=== PATIENT | male | born 1955 | race Caucasian/White ===

== ENCOUNTER 2019-02-24 04:47 | Inpatient (IN) | payer BC ==
--- NOTE | 2019-02-24 05:17 | PDOC ---
History of Present Illness - General Chief Complaint: Cold Symptoms Stated Complaint: CONGESTION,COUGH Time Seen by Provider: 02/24/19 05:13 - History of Present Illness Initial Comments: 02/24/19 05:59 63 y/o M hx of HTN, HLD, BPH, T2DM presenting with 3 weeks of cough and wheezing. He was seen at an urgent care a week ago for these symptoms and was given a 5 day course of antibiotics and an inhaler. He experienced some relief, but symptoms returned. He has had non-productive cough, chest tightness, post- nasal drip, body aches, chills. He denies chest pain, shortness of breath, vomiting. hemoptysis, hx of copd other lung disease, smoking, vaping. He got his flu shot this season 02/24/19 06:05 Past History - Past Medical History Allergies/Adverse Reactions: Allergies Allergy/AdvReac Type Severity Reaction Status Date / Time No Known Allergies Allergy Verified 02/24/19 05:00 Home Medications: Ambulatory Orders Atenolol [Tenormin -] 50 mg PO DAILY 02/24/19 Fenofibrate,Micronized [Fenofibrate] 200 mg PO DAILY 02/24/19 Glipizide [Glipizide ER] 5 mg PO DAILY 02/24/19 Ibuprofen 600 mg PO TID 02/24/19 Omeprazole 40 mg PO DAILY 02/24/19 Amlodipine Besylate [Norvasc -] 10 mg PO DAILY #30 tablet 02/26/19 Furosemide [Lasix] 40 mg PO DAILY #5 tablet 02/26/19 Valsartan [Diovan] 320 mg PO DAILY #60 tablet 02/26/19 COPD: No Diabetes: Yes HTN: Yes Hypercholesterolemia: Yes - Surgical History Cholecystectomy: Yes - Psycho Social/Smoking Cessation Hx Smoking History: Never smoked Review of Systems - Review of Systems Constitutional: Yes: Chills. No: Fever HEENTM: No: Eye Pain, Blurred Vision Respiratory: Yes: Cough, Wheezing. No: Hemoptysis ABD/GI: No: Abdominal Distended, Vomiting : No: Burning, Dysuria Musculoskeletal: Yes: Joint Pain. No: Back Pain Integumentary: Yes: Flushing. No: Bruising, Pruritus Neurological: Yes: Headache Hematologic/Lymphatic: No: Anemia, Blood Clots *Physical Exam - Vital Signs Last Vital Signs Temp Pulse Resp BP Pulse Ox 97.5 F L 98 H 20 172/68 H 100 02/24/19 04:49 02/24/19 04:49 02/24/19 04:49 02/24/19 04:49 02/24/19 04:49 - Physical Exam Comments: 02/24/19 06:13 PE: GENERAL: Awake, alert, and fully oriented, in no acute distress HEAD: No signs of trauma, normocephalic, atraumatic EYES: PERRLA, EOMI, sclera anicteric, conjunctiva clear ENT: Auricles normal inspection, hearing grossly normal, nares patent, oropharynx with greenish-white post-nasal drip. Moist mucosa NECK: Normal ROM, supple, JVD, or masses LUNGS: No distress, speaks full sentences, decreased breath sounds on the right. no wheezes rales or rhonchi heard HEART: Regular rate and rhythm, normal S1 and S2, no murmurs, rubs or gallops, peripheral pulses normal and equal bilaterally. ABDOMEN: Soft, nontender, normoactive bowel sounds. No guarding, no rebound. No masses EXTREMITIES : Normal inspection, Normal range of motion, no edema. No clubbing or cyanosis NEUROLOGICAL: Cranial nerves II through XII grossly intact. Normal speech, normal gait, no focal sensorimotor deficits SKIN: Warm, Dry, normal turgor, no rashes or lesions noted. face flushed and red ED Treatment Course - LABORATORY CBC & Chemistry Diagram: 02/25/19 09:10 02/26/19 09:40 Medical Decision Making - Medical Decision Making 02/24/19 06:19 63 y/o M hx of HTN, HLD, BPH, T2DM presenting with 3 weeks of cough and wheezing. cbc, cmp, ekg, cxr, strep and rapid flu swab EKG: normal sinus rhythm, normal EKG 02/24/19 06:30 -Rapid Strep negative. Pt signed out to Dr. Finney 02/27/19 18:17 Discharge - Discharge Information Problems reviewed: Yes Clinical Impression/Diagnosis: Pleural effusion, Shortness of breath on exertion, Chest tightness Condition: Improved Disposition: HOME - Follow up/Referral - Patient Discharge Instructions - Post Discharge Activity
--- NOTE | 2019-02-24 05:37 | PDOC ---
Attending Attestation - Resident Resident Name: Estela Macias - ED Attending Attestation I have performed the following: I have examined & evaluated the patient, The case was reviewed & discussed with the resident, I agree w/resident's findings & plan - HPI HPI: 02/24/19 05:37 Pt comes with hx of HTN, HLD, BPH, T2DM presenting with 3 weeks of cough and wheezing. He was seen at an urgent care a week ago for these symptoms and was given a 5 day course of antibiotics and an inhaler. He experienced some relief, but symptoms returned. He has had non-productive cough, chest tightness, post- nasal drip, body aches, chills. He denies chest pain, shortness of breath, vomiting. hemoptysis, hx of copd other lung disease, smoking, vaping. He got his flu shot this season - Physicial Exam PE: 02/26/19 00:27 Agree with resident exam HEENT normal Pt's lungs are clear; patchy wheeze Afebile Abd soft NT ND No flank pain - Medical Decision Making 02/24/19 06:19 63 y/o M presents with 3 weeks of cough and wheezing. cbc, cmp, ekg, cxr, strep and rapid flu swab done EKG: normal sinus rhythm, normal EKG NEGATIVE STREP 02/26/19 00:29 Flu negative; pt admitted for right base of lung infiltrate
[2019-02-24] MEDS ORDERED: ACETAMINOPHEN 650 MG/20.3 ML ORAL SOLUTION (CUPS) PO ONE (05:47)
[2019-02-24] MEDS ORDERED: ACETAMINOPHEN 325 MG TABLET (FP) PO ONE (06:04)
[2019-02-24] MEDS ORDERED: ACETAMINOPHEN 325 MG TABLET (FP) ONE ×2 (06:18→06:21)
[2019-02-24 06:19] LABS: BASO % 0.5 % (0-2.0); EOS % 1.6 % (0-4.5); HEMATOCRIT 38.6 % (35.4-49); HEMOGLOBIN 12.9 GM/dL (11.7-16.9); LYMPH % 14.7 % (8-40); MCH 27.9 pg (25.7-33.7); MCHC 33.5 g/dl (32.0-35.9); MEAN CELL VOLUME 83.2 fl (80-96); MEAN PLT VOLUME 7.8 fl (7.5-11.1); NEUT % 78.2 % (42.8-82.8); PLATELET COUNT 356 K/MM3 (134-434); RBC 4.64 M/mm3 (4.00-5.60); RDW 15.6 % (11.9-15.9); WHITE BLOOD COUNT 12.6 K/mm3 (4.0-10.0)
[2019-02-24 06:44] LABS: ALBUMIN 3.7 g/dl (3.4-5.0); ALK PHOS 94 U/L (45-117); ANION GAP 11 MMOL/L (8-16); BILIRUBIN,TOTAL 0.3 mg/dL (0.2-1); BLOOD UREA NITROGEN 21.8 mg/dL (7-18); CALCIUM 9.2 mg/dL (8.5-10.1); CHLORIDE 94 mmol/L (98-107); CO2 24 mmol/L (21-32); CREATININE 1.3 mg/dL (0.55-1.3); GLUCOSE,RANDOM 326 mg/dL (74-106); SGOT/AST 19 U/L (15-37); SGPT/ALT 26 U/L (13-61); SODIUM 128 mmol/L (136-145); TOT PROT 7.7 g/dl (6.4-8.2)
[2019-02-24] MEDS ORDERED: SODIUM CHLORIDE 1,000 ML IV STA (06:58)
--- NOTE | 2019-02-24 07:38 | PDOC ---
*Physical Exam - Vital Signs Last Vital Signs Temp Pulse Resp BP Pulse Ox 97.5 F L 98 H 20 172/68 H 100 02/24/19 04:49 02/24/19 04:49 02/24/19 04:49 02/24/19 04:49 02/24/19 04:49 ED Treatment Course - LABORATORY CBC & Chemistry Diagram: 02/24/19 06:08 02/24/19 06:08 - ADDITIONAL ORDERS Additional order review: Laboratory Results 02/24/19 06:08 Sodium 128 L Potassium 4.0 Chloride 94 L Carbon Dioxide 24 Anion Gap 11 BUN 21.8 H Creatinine 1.3 Est GFR (CKD-EPI)AfAm 68.25 Est GFR (CKD-EPI)NonAf 58.89 Random Glucose 326 H Calcium 9.2 Total Bilirubin 0.3 AST 19 ALT 26 Alkaline Phosphatase 94 Total Protein 7.7 Albumin 3.7 02/24/19 06:08 RBC 4.64 MCV 83.2 MCHC 33.5 RDW 15.6 MPV 7.8 Neutrophils % 78.2 Lymphocytes % 14.7 Monocytes % 5.0 Eosinophils % 1.6 Basophils % 0.5 - Medications Given in the ED: ED Medications Discontinued Medications Generic Name Dose Route Start Last Admin Trade Name Freq PRN Reason Stop Dose Admin Acetaminophen 650 mg 02/24/19 05:47 02/24/19 06:16 Tylenol Oral Solution - PO 02/24/19 05:48 Not Given ONCE ONE Acetaminophen 650 mg 02/24/19 06:04 02/24/19 06:22 Tylenol - PO 02/24/19 06:05 650 mg ONCE ONE Administration Medical Decision Making - Medical Decision Making 02/24/19 07:33 Received sign out from Dr Graves. Pt seen and assessed at bedside. 63yo M hx HTN, DM, HLD, recurrent sinusitis (followed by ENT) presents from home with SOB, nonproductive cough, and chest tightness worse with exertion and lying down x3wks, no hx similar sx, denies hx CHF or COPD. Endorses myalgias. Denies fever, chills, nausea, vomiting, abdominal pain, diarrhea, constipation. Endorses weekly shot testosterone x1mo and outpatient prostate surgery with general anesthesia 1 month ago. Pt went to dry cans back tender recently with these sx and is scheduled for a stress test in 2 weeks. Pt went to PCP 1.5 wks ago and completed course of unknown antibiotics and started inhaler thinking this was a bacterial sinus infection. Denies recent trauma, smoking, hx DVT/PE, hemoptysis , leg swelling, calf tenderness. Symptoms have not improved since arrival in ED , but are better when resting sitting up here, resumes when talks, moves, or lays down. Physical exam findings of note: Tachycardic to 90s/100s, O2 sat on RA 95% drops to 92% when talks, normotensive , afebrile. Lungs: decreased on R side, no wheezes, rhonchi, rales. LEs: no calf tenderness, no edema PCP - Otoniel [facility] Cardio - Dr Davis Pending 1L NS for hyponatremia and CXR. Add trop, BNP, and CTPE due to concern for ACS/AR, CHF, and PE. Start NC O2 1-2L. 02/24/19 08:24 XR reviewed: R pleural effusion with some R base atelectasis or infiltrate EKG reviewed: NSR, 92bpm, normal intervals, normal axis, TWI in III, no ST elevations or depressions Labs reviewed: Of note, WBC 12.6, Na 128, gluc 326, flu negative, strep negative Will admit for SOB and chest tightness on exertion and when lying flat in setting of R pleural effusion. 02/24/19 08:50 Trop neg BNP 307.9 Signed out to admitting team resident. Discharge - Discharge Information Problems reviewed: Yes Clinical Impression/Diagnosis: Pleural effusion, Shortness of breath on exertion, Chest tightness Condition: Fair - Admission Yes - Follow up/Referral Referrals: ON STAFF,NOT [Primary Care Provider] - - Patient Discharge Instructions - Post Discharge Activity
[2019-02-24] MEDS ORDERED: LORATADINE 10 MG TABLET PO ONE (08:30)
[2019-02-24] MEDS ORDERED: LORATADINE 10 MG TABLET ONE (08:34)
[2019-02-24 08:38] LABS: ANISOCYTOSIS 1+; PLATELET ESTIMATE NORMAL
[2019-02-24 08:41] LABS: N-TERMINAL BNP 307.9 pg/ml (5-125)
[2019-02-24] MEDS ORDERED: PATIENT'S OWN MEDICATION (NON-FORMULARY) (Amlodipine/Valsartan/Hcthiazid [Amlod-Valsa-Hctz PO SCH (11:00)
--- NOTE | 2019-02-24 11:04 | HP ---
CHIEF COMPLAINT: flu-like symptoms, cough PCP: Dr. Harrison Cardio: Dr. Davis ([facility]) HISTORY OF PRESENT ILLNESS: 63M w/ pmhx of HTN/HLD, BPH, T2DM, arthritis presents in the ED for complaints of flu-like symptoms. States he had a productive cough that started about 3 weeks ago, has been persistent despite being given PO abx, cough medicine, and nebulizer treatment to take at home. States he had a flu shot about 3 weeks ago , denies fever/chills, n/v, chest pain, abd pain, urinary/bowel symptoms or sick contacts. 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 Davis in the [place] [facility]) 2 days ago and is scheduled for stress test in 2 weeks. Admits to having a remote hx of "lung spots" in the past where he had a PET scan done 10 years ago, however results were reportedly benign. ER course was notable for: (1) 172/68 --> 148/74, 97% RA, WBC 12.6, Na 128, Glu 326, BNP 307.9. Rapid strep and flu neg. Throat culture pending. (2) PO Tylenol, Claritin 10 mg given (3) CXR showed R pleural effusion w/ R base atelectasis vs. infiltrate. 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 Allergies No Known Allergies Allergy (Verified 02/24/19 05:00) HOME MEDICATIONS: Home Medications Medication Instructions Recorded Amlodipine/Valsartan/Hcthiazid 1 tab PO DAILY 02/24/19 [Trgxm-Ehbsa-Rgkw 10-320-25 mg] Atenolol [Tenormin -] 50 mg PO DAILY 02/24/19 Fenofibrate,Micronized 200 mg PO DAILY 02/24/19 [Fenofibrate] Glipizide [Glipizide ER] 5 mg PO DAILY 02/24/19 Ibuprofen 600 mg PO TID 02/24/19 Omeprazole 40 mg PO DAILY 02/24/19 REVIEW OF SYSTEMS CONSTITUTIONAL: Absent: fever, chills, diaphoresis, generalized weakness, malaise, loss of appetite, weight change HEENT: Absent: rhinorrhea, nasal congestion, throat pain, throat swelling, difficulty swallowing, mouth swelling, ear pain, eye pain, visual changes CARDIOVASCULAR: Absent: chest pain, syncope, palpitations, irregular heart rate, lightheadedness , peripheral edema RESPIRATORY: cough, shortness of breath, dyspnea with exertion, orthopnea Absent: wheezing, stridor, hemoptysis GASTROINTESTINAL: Absent: abdominal pain, abdominal distension, nausea, vomiting, diarrhea, constipation, melena, hematochezia GENITOURINARY: Absent: dysuria, frequency, urgency, hesitancy, hematuria, flank pain, genital pain MUSCULOSKELETAL: Absent: myalgia, arthralgia, joint swelling, back pain, neck pain SKIN: Absent: rash, itching, pallor HEMATOLOGIC/IMMUNOLOGIC: Absent: easy bleeding, easy bruising, lymphadenopathy, frequent infections ENDOCRINE: Absent: unexplained weight gain, unexplained weight loss, heat intolerance, cold intolerance NEUROLOGIC: Absent: headache, focal weakness or paresthesias, dizziness, unsteady gait, seizure, mental status changes, bladder or bowel incontinence PSYCHIATRIC: Absent: anxiety, depression, suicidal or homicidal ideation, hallucinations. PHYSICAL EXAMINATION Vital Signs - 24 hr 02/24/19 02/24/19 02/24/19 04:49 07:30 08:38 Temperature 97.5 F L 98.6 F Pulse Rate 98 H 100 H Pulse Rate [ 98 H Left Radial] Respiratory 20 20 Rate Blood Pressure 172/68 H Blood Pressure 148/74 [Left Arm] O2 Sat by Pulse 100 93 L 97 Oximetry (%) GENERAL: Pleasant, well-appearing male. NAD. AAOx3. HEENT: AT/NC. EOMI. MMM. Facial muscles intact. NECK: Normal range of motion, supple without lymphadenopathy, JVD, or masses. LUNGS: R sided crackles at L lower lung base; good air entry. Symmetric chest rise. HEART: RRR. Normal S1, S2. No murmurs noted . ABDOMEN: Obese, soft, NT/ND. Normoactive bowel sounds in all 4Qs. MUSCULOSKELETAL: Normal range of motion at all joints. No bony deformities or tenderness. No CVA tenderness. UPPER EXTREMITIES: 2+ pulses, warm, well-perfused. No cyanosis. No clubbing. No peripheral edema. LOWER EXTREMITIES: 2+ dorsalis pedis pulses, warm, well-perfused. No calf tenderness. 2+ pitting edema b/l. NEUROLOGICAL: Cranial nerves II-XII intact. Normal speech. Normal gait. PSYCHIATRIC: Cooperative. Good eye contact. Appropriate mood and affect. SKIN: Warm, dry, normal turgor, no rashes or lesions noted, normal capillary refill. Laboratory Results - last 24 hr 02/24/19 02/24/19 02/24/19 06:08 06:08 06:11 WBC 12.6 H RBC 4.64 Hgb 12.9 Hct 38.6 MCV 83.2 MCH 27.9 MCHC 33.5 RDW 15.6 Plt Count 356 MPV 7.8 Absolute Neuts (auto) 9.9 H Neutrophils % 78.2 Neutrophils % (Manual) 72.0 Band Neutrophils % 0.0 Lymphocytes % 14.7 Lymphocytes % (Manual) 10.0 Monocytes % 5.0 Monocytes % (Manual) 7 Eosinophils % 1.6 Eosinophils % (Manual) 3.0 Basophils % 0.5 Basophils % (Manual) 0.0 Myelocytes % (Man) 2 Promyelocytes % (Man) 0 Blast Cells % (Manual) 0 Nucleated RBC % 0 Metamyelocytes 1 Hypochromia 0 Platelet Estimate Normal Polychromasia 1+ Poikilocytosis 0 Anisocytosis 1+ Sodium 128 L Potassium 4.0 Chloride 94 L Carbon Dioxide 24 Anion Gap 11 BUN 21.8 H Creatinine 1.3 Est GFR (CKD-EPI)AfAm 68.25 Est GFR (CKD-EPI)NonAf 58.89 Random Glucose 326 H Calcium 9.2 Total Bilirubin 0.3 AST 19 ALT 26 Alkaline Phosphatase 94 Creatine Kinase 131 Troponin I < 0.02 B-Natriuretic Peptide 307.9 H Total Protein 7.7 Albumin 3.7 Influenza A (Rapid) Negative Influenza B (Rapid) Negative Group A Strep Rapid 02/24/19 06:11 WBC RBC Hgb Hct MCV MCH MCHC RDW Plt Count MPV Absolute Neuts (auto) Neutrophils % Neutrophils % (Manual) Band Neutrophils % Lymphocytes % Lymphocytes % (Manual) Monocytes % Monocytes % (Manual) Eosinophils % Eosinophils % (Manual) Basophils % Basophils % (Manual) Myelocytes % (Man) Promyelocytes % (Man) Blast Cells % (Manual) Nucleated RBC % Metamyelocytes Hypochromia Platelet Estimate Polychromasia Poikilocytosis Anisocytosis Sodium Potassium Chloride Carbon Dioxide Anion Gap BUN Creatinine Est GFR (CKD-EPI)AfAm Est GFR (CKD-EPI)NonAf Random Glucose Calcium Total Bilirubin AST ALT Alkaline Phosphatase Creatine Kinase Troponin I B-Natriuretic Peptide Total Protein Albumin Influenza A (Rapid) Influenza B (Rapid) Group A Strep Rapid Negative ASSESSMENT/PLAN: 63M w/ pmhx of HTN/HLD, BPH, T2DM, arthritis presents in the ED for complaints of flu-like symptoms admitted for fluid overload and h. #Shortness of breath; CXR showed R pleural effusion -CTA showed no evid of central PE, distal branch emboli cannot be excluded, partially loculated R pleural effusion w/ lower lobe atelectasis; chronic lung disease with no evid of acute pathology -IV Lasix 40 x1 dose given; Pulm consulted for further eval of loculated pleural effusion -Echo ordered #Hyponatremia; etiology unknown, may be due to hx of HCTZ use. Corrected Na 132. -NS x1L given in ED, will d/c IV fluids for now -Urine electrolytes, Sosm, UOsm ordered -Will recheck BMP -Will hold HCTZ in setting of hyponatremia #HTN/HLD; Cont home meds: Amlo/Valsartan 10-320, Atenolol 50, Fenofibrate 200. Hold HCTZ in setting of hyponatremia. #NIDDM; Hold home oral DM meds. BGM/ISS ACHS. #BPH; Stable. States he currently follows with Dr. Leiva as an outpatient and has received Testosterone injections x3, last dose given last . #Prophylaxis DVT: SQH #FEN -No IVf -recheck lytes in AM (Na) -Chol/Fat/Sodium-controlled diet Dispo -admit to med-surg Visit type - Emergency Visit Emergency Visit: Yes ED Registration Date: 02/24/19 Care time: The patient presented to the Emergency Department on the above date and was hospitalized for further evaluation of their emergent condition. - New Patient This patient is new to me today: Yes Date on this admission: 02/24/19 - Critical Care Critical Care patient: No ATTENDING PHYSICIAN STATEMENT I saw and evaluated the patient. I reviewed the resident's note and discussed the case with the resident. I agree with the resident's findings and plan as documented. SUBJECTIVE: OBJECTIVE: ASSESSMENT AND PLAN:
[2019-02-24] MEDS: INSULIN SLIDING SCALE (NOVOLOG) 1 VIAL SQ SCH ×3 (11:10→21:05)
[2019-02-24] MEDS ORDERED: HYDROCHLOROTHIAZIDE 25 MG TABLET (FP) PO SCH (11:30)
[2019-02-24] MEDS: PANTOPRAZOLE 40 MG TABLET (FP) PO SCH (12:35)
[2019-02-24] MEDS: ATENOLOL 50 MG TABLET (FP) PO SCH (12:36)
[2019-02-24] MEDS: FENOFIBRIC ACID 135 MG CAP PO SCH (12:36)
[2019-02-24] MEDS: VALSARTAN 160 MG TABLET (UD) PO SCH (12:37)
[2019-02-24] MEDS: amLODIPine BESYLATE 10 MG TABLET (FP) PO SCH (12:38)
[2019-02-24] MEDS ORDERED: FUROSEMIDE 40 MG/4 ML INJECTABLE VIAL IVPUSH ONE (13:09)
[2019-02-24 14:03] LABS: OSMOLALITY,SERUM 305 mosm/kg (278-305)
--- NOTE | 2019-02-24 14:06 | PN ---
Teaching Attending Note Name of Resident: Jayleen Haro ATTENDING PHYSICIAN STATEMENT I saw and evaluated the patient. I reviewed the resident's note and discussed the case with the resident. I agree with the resident's findings and plan as documented. SUBJECTIVE: Several week histry of cough/orthopnea/SOB worse on exertion. Completed 5 day Abx course as out-patient and has stress test scheduled in 2 weeks. OBJECTIVE: Afebrile hemodynamically Stable. Last Vital Signs Temp Pulse Resp BP Pulse Ox 98.6 F 100 H 20 148/74 97 02/24/19 07:30 02/24/19 08:38 02/24/19 07:30 02/24/19 07:30 02/24/19 08:38 HEENT - Atraumatic, Normocephalic. Heart - S1, S2, RRR Lungs - Decreased air entry R base. No wheeze. Abdomen - High BMI. Soft, non-tender. Bowel Sounds normal. Extremities - Mild edema, no calf tenderness. Neuro - AAO x 3. Tone/Power normal all 4 extremities. Laboratory Results - last 24 hr 02/24/19 02/24/19 02/24/19 06:08 06:08 06:11 WBC 12.6 H RBC 4.64 Hgb 12.9 Hct 38.6 MCV 83.2 MCH 27.9 MCHC 33.5 RDW 15.6 Plt Count 356 MPV 7.8 Absolute Neuts (auto) 9.9 H Neutrophils % 78.2 Neutrophils % (Manual) 72.0 Band Neutrophils % 0.0 Lymphocytes % 14.7 Lymphocytes % (Manual) 10.0 Monocytes % 5.0 Monocytes % (Manual) 7 Eosinophils % 1.6 Eosinophils % (Manual) 3.0 Basophils % 0.5 Basophils % (Manual) 0.0 Myelocytes % (Man) 2 Promyelocytes % (Man) 0 Blast Cells % (Manual) 0 Nucleated RBC % 0 Metamyelocytes 1 Hypochromia 0 Platelet Estimate Normal Polychromasia 1+ Poikilocytosis 0 Anisocytosis 1+ Sodium 128 L Potassium 4.0 Chloride 94 L Carbon Dioxide 24 Anion Gap 11 BUN 21.8 H Creatinine 1.3 Est GFR (CKD-EPI)AfAm 68.25 Est GFR (CKD-EPI)NonAf 58.89 Random Glucose 326 H Calcium 9.2 Total Bilirubin 0.3 AST 19 ALT 26 Alkaline Phosphatase 94 Creatine Kinase 131 Troponin I < 0.02 B-Natriuretic Peptide 307.9 H Total Protein 7.7 Albumin 3.7 Urine Osmolality Ur Random Sodium Ur Random Potassium Ur Random Chloride Influenza A (Rapid) Negative Influenza B (Rapid) Negative Group A Strep Rapid 02/24/19 02/24/19 02/24/19 06:11 12:30 12:30 WBC RBC Hgb Hct MCV MCH MCHC RDW Plt Count MPV Absolute Neuts (auto) Neutrophils % Neutrophils % (Manual) Band Neutrophils % Lymphocytes % Lymphocytes % (Manual) Monocytes % Monocytes % (Manual) Eosinophils % Eosinophils % (Manual) Basophils % Basophils % (Manual) Myelocytes % (Man) Promyelocytes % (Man) Blast Cells % (Manual) Nucleated RBC % Metamyelocytes Hypochromia Platelet Estimate Polychromasia Poikilocytosis Anisocytosis Sodium Potassium Chloride Carbon Dioxide Anion Gap BUN Creatinine Est GFR (CKD-EPI)AfAm Est GFR (CKD-EPI)NonAf Random Glucose Calcium Total Bilirubin AST ALT Alkaline Phosphatase Creatine Kinase Troponin I B-Natriuretic Peptide Total Protein Albumin Urine Osmolality 362 Ur Random Sodium 25 L Ur Random Potassium 20.0 L Ur Random Chloride 29 L Influenza A (Rapid) Influenza B (Rapid) Group A Strep Rapid Negative Current Medications Generic Name Dose Route Start Last Admin Trade Name Freq PRN Reason Stop Dose Admin Amlodipine Besylate 10 mg 02/24/19 11:30 02/24/19 12:38 Norvasc - PO 10 mg DAILY RASHID Administration Atenolol 50 mg 02/24/19 11:00 02/24/19 12:36 Tenormin - PO 50 mg DAILY RASHID Administration Fenofibric Acid 135 mg 02/24/19 11:00 02/24/19 12:36 Trilipix - PO 135 mg DAILY RASHID Administration Heparin Sodium (Porcine) 5,000 unit 02/24/19 14:00 Heparin - SQ TID RASHID Ibuprofen 600 mg 02/24/19 14:00 Motrin - PO TID RASHID Insulin Aspart 1 vial 02/24/19 11:00 Novolog Vial Sliding Scale - SQ ACHS [facility] Protocol Pantoprazole Sodium 40 mg 02/24/19 11:00 02/24/19 12:35 Protonix - PO 40 mg DAILY RASHID Administration Valsartan 320 mg 02/24/19 11:30 02/24/19 12:37 Diovan - PO 320 mg DAILY RASHID Administration Home Medications Medication Instructions Recorded Amlodipine/Valsartan/Hcthiazid 1 tab PO DAILY 02/24/19 [Sxjon-Edrcv-Hxvv 10-320-25 mg] Atenolol [Tenormin -] 50 mg PO DAILY 02/24/19 Fenofibrate,Micronized 200 mg PO DAILY 02/24/19 [Fenofibrate] Glipizide [Glipizide ER] 5 mg PO DAILY 02/24/19 Ibuprofen 600 mg PO TID 02/24/19 Omeprazole 40 mg PO DAILY 02/24/19 ASSESSMENT AND PLAN: 63 year old male with history of HTN, HLD, DM 2, BPH, OA, presents with congestion, cough productive of clear sputum, without fever/chills/hemoptysis/CP , on background of worsening dyspnea on exertion and orthopnea for the past 3 weeks. Completed 5 day Abx course as out-patient and has stress test scheduled in 2 weeks. 1. Fluid overload with R Pleural Effusion ? sec to CHF CT A/P - no PE, R pleural effusion wit lower lobe atelectasis, chronic lung dsease, no acute pathology. Pulmonary consult for possible CT/Thoracentesis. Echo requested. BNP minimally elevated at 303. IV Lasix x 1 dose pending Echo and Pulmonary eval. Flu neg/Strep neg 2. Hyponatremia ? sec to dilution due to fluid overload +/- HCTZ Urine and Serum osmolality requested along with urine lytes. HCTZ held. Will monitor after Lasix IV. 3. HTN - Continue Atenolol, Norvasc, Valsartan. Hold HCTZ 4. HLD - normally on fenofibrate 5. DM 2 - Maintain on Novolog sliding scale. Glipizide held. 6. BPH - follows with Dr. Leiva. On testosterone injections. DVT Px - Heparin SQ GI Px - PPI
[2019-02-24] MEDS ORDERED: FUROSEMIDE 40 MG/4 ML INJECTABLE VIAL ONE (15:09)
[2019-02-24] MEDS ORDERED: IBUPROFEN 600 MG TABLET (FP) PO ONE (15:14)
[2019-02-24] MEDS ORDERED: HEPARIN NA (PORCINE) 5,000 UNITS/ML 1ML VIAL ONE (15:14)
[2019-02-24] MEDS: HEPARIN NA (PORCINE) 5,000 UNITS/ML 1ML VIAL SQ SCH ×2 (15:25→21:03)
[2019-02-24] MEDS: IBUPROFEN 600 MG TABLET (FP) PO SCH ×2 (17:01→21:04)
--- NOTE | 2019-02-24 18:01 | EKG ---
Test Reason : Blood Pressure : / mmHG Vent. Rate : 092 BPM Atrial Rate : 092 BPM P-R Int : 126 ms QRS Dur : 092 ms QT Int : 362 ms P-R-T Axes : 030 029 -03 degrees QTc Int : 447 ms NORMAL SINUS RHYTHM NORMAL ECG NO PREVIOUS ECGS AVAILABLE Confirmed by MD Waqas, Micheal ([id number]) on 02/24/2019 6:00:45 PM Referred By: LEIGH Confirmed By:Micheal Alan MD
[2019-02-24 20:14] VITALS: BMI 36.6
[2019-02-24] MEDS ORDERED: diphenhydrAMINE HCL 25 MG CAPSULE (FP) PO ONE (20:48)
[2019-02-25] MEDS: IBUPROFEN 600 MG TABLET (FP) PO SCH ×3 (06:41→21:03)
[2019-02-25] MEDS: INSULIN SLIDING SCALE (NOVOLOG) 1 VIAL SQ SCH ×4 (06:42→21:30)
[2019-02-25] MEDS: HEPARIN NA (PORCINE) 5,000 UNITS/ML 1ML VIAL SQ SCH ×3 (06:42→21:03)
[2019-02-25] MEDS ORDERED: PT OWN MED DRAWER 7, Y5N ONE (09:07)
[2019-02-25] MEDS: amLODIPine BESYLATE 10 MG TABLET (FP) PO SCH (10:23)
[2019-02-25] MEDS: PANTOPRAZOLE 40 MG TABLET (FP) PO SCH (10:24)
[2019-02-25] MEDS: FENOFIBRIC ACID 135 MG CAP PO SCH (10:24)
[2019-02-25] MEDS: VALSARTAN 160 MG TABLET (UD) PO SCH (10:24)
[2019-02-25 10:38] LABS: HEMATOCRIT 38.2 % (35.4-49); HEMOGLOBIN 12.7 GM/dL (11.7-16.9); MCH 28.3 pg (25.7-33.7); MCHC 33.3 g/dl (32.0-35.9); MEAN PLT VOLUME 8.8 fl (7.5-11.1); PLATELET COUNT 395 K/MM3 (134-434); RDW 16.3 % (11.9-15.9); WHITE BLOOD COUNT 11.8 K/mm3 (4.0-10.0)
[2019-02-25 11:08] LABS: BLOOD UREA NITROGEN 27.4 mg/dL (7-18); CALCIUM 9.1 mg/dL (8.5-10.1); CREATININE 1.4 mg/dL (0.55-1.3); POTASSIUM 4.2 mmol/L (3.5-5.1)
--- NOTE | 2019-02-25 11:10 | PN ---
Progress Note (short form) - Note Progress Note: SUBJECTIVE: Several week history of cough/orthopnea/SOB worse on exertion. Completed 5 day Abx course as out-patient and has stress test scheduled in 2 weeks. Dyspnea improving. OBJECTIVE: Afebrile hemodynamically Stable. Last Vital Signs Temp Pulse Resp BP Pulse Ox 98.2 F 90 20 114/57 L 95 02/25/19 06:00 02/25/19 06:00 02/25/19 06:00 02/25/19 06:00 02/24/19 21:00 Heart - S1, S2, RRR Lungs - Decreased air entry R base with few crackles. No wheeze. Abdomen - High BMI. Soft, non-tender. Bowel Sounds normal. Extremities - Mild edema, no calf tenderness. Neuro - AAO x 3. Tone/Power normal all 4 extremities. Laboratory Results - last 24 hr 02/24/19 02/24/19 02/24/19 06:08 12:30 12:30 WBC RBC Hgb Hct MCV MCH MCHC RDW Plt Count MPV Sodium 128 L Potassium 4.0 Chloride 94 L Carbon Dioxide 24 Anion Gap 11 BUN 21.8 H Creatinine 1.3 Est GFR (CKD-EPI)AfAm 68.25 Est GFR (CKD-EPI)NonAf 58.89 POC Glucometer Random Glucose 326 H Serum Osmolality 305 Calcium 9.2 Total Bilirubin 0.3 AST 19 ALT 26 Alkaline Phosphatase 94 Creatine Kinase 131 Troponin I < 0.02 B-Natriuretic Peptide 307.9 H Total Protein 7.7 Albumin 3.7 Urine Osmolality 362 Ur Random Sodium 25 L Ur Random Potassium 20.0 L Ur Random Chloride 29 L 02/24/19 02/24/19 02/25/19 17:05 21:01 05:52 WBC RBC Hgb Hct MCV MCH MCHC RDW Plt Count MPV Sodium Potassium Chloride Carbon Dioxide Anion Gap BUN Creatinine Est GFR (CKD-EPI)AfAm Est GFR (CKD-EPI)NonAf POC Glucometer 195 279 231 Random Glucose Serum Osmolality Calcium Total Bilirubin AST ALT Alkaline Phosphatase Creatine Kinase Troponin I B-Natriuretic Peptide Total Protein Albumin Urine Osmolality Ur Random Sodium Ur Random Potassium Ur Random Chloride 02/25/19 09:10 WBC 11.8 H RBC 4.50 Hgb 12.7 Hct 38.2 MCV 85.0 MCH 28.3 MCHC 33.3 RDW 16.3 H Plt Count 395 MPV 8.8 D Sodium Potassium Chloride Carbon Dioxide Anion Gap BUN Creatinine Est GFR (CKD-EPI)AfAm Est GFR (CKD-EPI)NonAf POC Glucometer Random Glucose Serum Osmolality Calcium Total Bilirubin AST ALT Alkaline Phosphatase Creatine Kinase Troponin I B-Natriuretic Peptide Total Protein Albumin Urine Osmolality Ur Random Sodium Ur Random Potassium Ur Random Chloride Current Medications Generic Name Dose Route Start Last Admin Trade Name Freq PRN Reason Stop Dose Admin Amlodipine Besylate 10 mg 02/24/19 11:30 02/25/19 10:23 Norvasc - PO 10 mg DAILY RASHID Administration Atenolol 50 mg 02/24/19 11:00 02/24/19 12:36 Tenormin - PO 50 mg DAILY RASHID Administration Fenofibric Acid 135 mg 02/24/19 11:00 02/25/19 10:24 Trilipix - PO 135 mg DAILY RASHID Administration Heparin Sodium (Porcine) 5,000 unit 02/24/19 14:00 02/25/19 06:42 Heparin - SQ 5,000 unit TID RASHID Administration Ibuprofen 600 mg 02/24/19 14:00 02/25/19 06:41 Motrin - PO 600 mg TID RASHID Administration Insulin Aspart 1 vial 02/24/19 11:00 02/25/19 06:42 Novolog Vial Sliding Scale - SQ 4 units ACHS RASHID Administration Protocol Loratadine 10 mg 02/25/19 10:00 Claritin - PO DAILY RASHID Pantoprazole Sodium 40 mg 02/24/19 11:00 02/25/19 10:24 Protonix - PO 40 mg DAILY RASHID Administration Valsartan 320 mg 02/24/19 11:30 02/25/19 10:24 Diovan - PO 320 mg DAILY RASHID Administration Home Medications Medication Instructions Recorded Amlodipine/Valsartan/Hcthiazid 1 tab PO DAILY 02/24/19 [[id number] 10-320-25 mg] Atenolol [Tenormin -] 50 mg PO DAILY 02/24/19 Fenofibrate,Micronized 200 mg PO DAILY 02/24/19 [Fenofibrate] Glipizide [Glipizide ER] 5 mg PO DAILY 02/24/19 Ibuprofen 600 mg PO TID 02/24/19 Omeprazole 40 mg PO DAILY 02/24/19 ASSESSMENT AND PLAN: 63 year old male with history of HTN, HLD, DM 2, BPH, OA, presents with congestion, cough productive of clear sputum, without fever/chills/hemoptysis/CP , on background of worsening dyspnea on exertion and orthopnea for the past 3 weeks. Completed 5 day Abx course as out-patient and has stress test scheduled in 2 weeks. 1. Fluid overload with R Pleural Effusion ? sec to CHF CT A/P - no PE, R pleural effusion wit lower lobe atelectasis, chronic lung disease, no acute pathology. Pulmonary consult for possible CT/Thoracentesis. Echo requested. BNP minimally elevated at 303. Will give another dose of IV Lasix 40mg pending Echo and Pulmonary eval. Flu neg/Strep neg 2. Hyponatremia ? sec to dilution due to fluid overload +/- HCTZ HCTZ held. Labs today still pending - will monitor. 3. HTN - Continue Atenolol, Norvasc, Valsartan. Hold HCTZ 4. HLD - normally on fenofibrate 5. DM 2 - Maintain on Novolog sliding scale. Glipizide held. 6. BPH - follows with Dr. Leiva. On testosterone injections. DVT Px - Heparin SQ GI Px - PPI Visit type - Emergency Visit Emergency Visit: Yes ED Registration Date: 02/24/19 Care time: The patient presented to the Emergency Department on the above date and was hospitalized for further evaluation of their emergent condition. - New Patient This patient is new to me today: No - Critical Care Critical Care patient: No - Discharge Referral Referred to [facility] No
[2019-02-25] MEDS: ATENOLOL 50 MG TABLET (FP) PO SCH (11:27)
[2019-02-25] MEDS ORDERED: INSULIN (NOVOLOG) ASPART 100 UNITS/ML 10ML VIAL ONE (11:33)
[2019-02-25] MEDS: LORATADINE 10 MG TABLET PO SCH (12:23)
--- NOTE | 2019-02-25 12:46 | CON.PULM ---
Consult Consult Specialty:: PULMONARY Referred by:: Dr Campos Reason for Consultation:: pleural effusion - History of Present Illness Chief Complaint: shortness of breath History of Present Illness: 63yo male with h/o HTN, hyperlipidemia, DM, arthritis, BPH who was admitted with worsening shrtness of breath x 3 weeks ago. No chest pain or discomfort. + cough productive of white sputum, was given PO antibiotics now nonproductive. No fevers, chills or sweats. He does endorse weight loss. He is due for a stress test in 2 weeks. 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 He was found to have a right pleural effusion, partially loculated. Denies ever being told of an effusion. Feels better after lasix. - History Source History Provided By: Patient, Medical Record Limitations to Obtaining History: No Limitations - Past Medical History Cardio/Vascular: Yes: HTN, Hyperlipdemia Endocrine: Yes: Diabetes Mellitus - Alcohol/Substance Use Hx Alcohol Use: Yes (OCCASSIONAL) - Smoking History Smoking history: Never smoked Have you smoked in the past 12 months: No Home Medications - Allergies Allergies/Adverse Reactions: Allergies Allergy/AdvReac Type Severity Reaction Status Date / Time No Known Allergies Allergy Verified 02/24/19 05:00 - Home Medications Home Medications: Ambulatory Orders Amlodipine/Valsartan/Hcthiazid [[id number] 10-320-25 mg] 1 tab PO DAILY Atenolol [Tenormin -] 50 mg PO DAILY 02/24/19 Fenofibrate,Micronized [Fenofibrate] 200 mg PO DAILY 02/24/19 Glipizide [Glipizide ER] 5 mg PO DAILY 02/24/19 Ibuprofen 600 mg PO TID 02/24/19 Omeprazole 40 mg PO DAILY 02/24/19 Review of Systems - Review of Systems Constitutional: denies: Chills, Fever, Weakness Eyes: denies: Recent Change in Vision HENT: denies: Nasal Congestion, Throat Pain Neck: denies: Stiffness, Tenderness Cardiovascular: reports: Edema, Shortness of Breath. denies: Chest Pain, Palpitations Respiratory: reports: Cough, SOB on Exertion. denies: Hemoptysis, Wheezing Gastrointestinal: denies: Abdominal Pain, Nausea, Vomiting Genitourinary: denies: Dysuria, Hematuria Neurological: denies: Dizziness, Headache Endocrine: denies: Unexplained Weight Loss Physical Exam Vital Sings: Vital Signs Temperature 98.2 F 02/25/19 06:00 Pulse Rate 90 02/25/19 06:00 Respiratory Rate 20 02/25/19 06:00 Blood Pressure 114/57 L 02/25/19 06:00 O2 Sat by Pulse Oximetry (%) 95 02/24/19 21:00 Constitutional: Yes: Anxious Eyes: Yes: Conjunctiva Clear, EOM Intact HENT: Yes: Atraumatic, Normocephalic Neck: Yes: Supple, Trachea Midline Cardiovascular: Yes: Regular Rate and Rhythm Respiratory: Yes: Diminished (decreased breath sounds at the bases) ...Clubbing: No Gastrointestinal: Yes: Normal Bowel Sounds, Soft. No: Tenderness Edema: Yes (trace) Neurological: Yes: Alert, Oriented Labs: CBC, BMP 02/25/19 09:10 02/25/19 09:10 Imaging - Results Chest X-ray: Report Reviewed, Image Reviewed Cat Scan: Report Reviewed, Image Reviewed (right partially loculated effusion) Assessment/Plan Partially Loculated Right Pleural Effusion r/o CHF r/o Pleural Disease Hyponatremia HTN DM Hyperlipidemia - recommend diagnostic thoracentesis but pt does not want to stay in the hospital and is taking NSAIDs - gave Rx for CXR in 1 week, if effusion persists will need diagnostic thoracentesis - lasix - echocardiogram - pt has stress test and cardiology f/u as outpt - stressed importance of close f/u and pt agrees - DVT prophylaxis Thank you for this consult Hector Davis MD
[2019-02-25] MEDS ORDERED: FUROSEMIDE 40 MG/4 ML INJECTABLE VIAL IVPUSH ONE (12:54)
[2019-02-25] MEDS ORDERED: INSULIN (LEVEMIR) 100 UNITS/ML UNITS SQ ONE (17:59)
[2019-02-25] MEDS ORDERED: ZOLPIDEM TARTRATE 5 MG TABLET PO PRN (22:00)
[2019-02-25] MEDS ORDERED: INSULIN (LEVEMIR) 100 UNITS/ML UNITS SQ SCH (22:00)
[2019-02-26] MEDS: IBUPROFEN 600 MG TABLET (FP) PO SCH (05:48)
[2019-02-26] MEDS: HEPARIN NA (PORCINE) 5,000 UNITS/ML 1ML VIAL SQ SCH (05:48)
[2019-02-26] MEDS ORDERED: INSULIN (NOVOLOG) ASPART 100 UNITS/ML 10ML VIAL ONE ×2 (06:01→11:57)
[2019-02-26] MEDS: INSULIN SLIDING SCALE (NOVOLOG) 1 VIAL SQ SCH ×2 (06:02→11:58)
[2019-02-26] MEDS ORDERED: PT OWN MED DRAWER 7, Y5N ONE (10:32)
[2019-02-26 10:43] VITALS: BP 136/62; PULSE 78; TEMP 98.2
[2019-02-26] MEDS: amLODIPine BESYLATE 10 MG TABLET (FP) PO SCH (10:44)
[2019-02-26] MEDS: PANTOPRAZOLE 40 MG TABLET (FP) PO SCH (10:45)
[2019-02-26] MEDS: VALSARTAN 160 MG TABLET (UD) PO SCH (10:45)
[2019-02-26] MEDS: FENOFIBRIC ACID 135 MG CAP PO SCH (10:45)
[2019-02-26] MEDS: LORATADINE 10 MG TABLET PO SCH (10:45)
[2019-02-26] MEDS: ATENOLOL 50 MG TABLET (FP) PO SCH (10:46)
[2019-02-26 10:57] LABS: BLOOD UREA NITROGEN 27.6 mg/dL (7-18); CALCIUM 9.2 mg/dL (8.5-10.1); CREATININE 1.4 mg/dL (0.55-1.3); POTASSIUM 4.2 mmol/L (3.5-5.1)
--- NOTE | 2019-02-26 11:13 | PN ---
Progress Note (short form) - Note Progress Note: Breathing feels overall better. No CP or SOB. No acute events overnight. Intake & Output 02/23/19 02/24/19 02/25/19 02/26/19 23:59 23:59 23:59 23:59 Intake Total 680 800 Balance 680 800 Weight 220 lb 4.8 oz Last Vital Signs Temp Pulse Resp BP Pulse Ox 98.2 F 78 20 136/62 95 02/26/19 10:43 02/26/19 10:43 02/26/19 10:43 02/26/19 10:43 02/25/19 09:00 Active Medications Amlodipine Besylate (Norvasc -) 10 mg PO DAILY [facility] Last Admin: 02/26/19 10:44 Dose: 10 mg Atenolol (Tenormin -) 50 mg PO DAILY [facility] Last Admin: 02/26/19 10:46 Dose: 50 mg Fenofibric Acid (Trilipix -) 135 mg PO DAILY [facility] Last Admin: 02/26/19 10:45 Dose: 135 mg Heparin Sodium (Porcine) (Heparin -) 5,000 unit SQ TID [facility] Last Admin: 02/26/19 05:48 Dose: 5,000 unit Ibuprofen (Motrin -) 600 mg PO TID [facility] Last Admin: 02/26/19 05:48 Dose: 600 mg Insulin Aspart (Novolog Vial Sliding Scale -) 1 vial SQ [facility]; Protocol Last Admin: 02/26/19 06:02 Dose: 6 units Insulin Detemir (Levemir Vial) 5 units SQ HS [facility] Last Admin: 02/25/19 21:09 Dose: 5 units Loratadine (Claritin -) 10 mg PO DAILY [facility] Last Admin: 02/26/19 10:45 Dose: 10 mg Pantoprazole Sodium (Protonix -) 40 mg PO DAILY [facility] Last Admin: 02/26/19 10:45 Dose: 40 mg Valsartan (Diovan -) 320 mg PO DAILY [facility] Last Admin: 02/26/19 10:45 Dose: 320 mg Zolpidem Tartrate (Ambien -) 5 mg PO HS PRN PRN Reason: INSOMNIA Last Admin: 02/25/19 21:03 Dose: 5 mg Constitutional: Yes: NAD Eyes: Yes: Conjunctiva Clear, EOM Intact HENT: Yes: Atraumatic, Normocephalic Neck: Yes: Supple, Trachea Midline Cardiovascular: Yes: Regular Rate and Rhythm Respiratory: Yes: Diminished breath sounds at the bases ...Clubbing: No Gastrointestinal: Yes: Normal Bowel Sounds, Soft. No: Tenderness Edema: Yes (trace) Neurological: Yes: Alert, Oriented Labs: Laboratory Results - last 24 hr 02/25/19 02/25/19 02/25/19 11:30 17:25 21:14 Sodium Potassium Chloride Carbon Dioxide Anion Gap BUN Creatinine Est GFR (CKD-EPI)AfAm Est GFR (CKD-EPI)NonAf POC Glucometer 317 406 218 Random Glucose Calcium 02/26/19 02/26/19 05:46 09:40 Sodium 132 L Potassium 4.2 Chloride 99 Carbon Dioxide 27 Anion Gap 6 L BUN 27.6 H Creatinine 1.4 H Est GFR (CKD-EPI)AfAm 62.40 Est GFR (CKD-EPI)NonAf 53.84 POC Glucometer 211 Random Glucose 383 H Calcium 9.2 Assessment/Plan Partially Loculated Right Pleural Effusion r/o CHF r/o Pleural Disease Hyponatremia HTN DM Hyperlipidemia - Have previously recommend diagnostic thoracentesis but pt does not want to stay in the hospital and is taking NSAIDs - Check CXR in 1 week, if effusion persists will need diagnostic thoracentesis - lasix - Again stressed importance of close f/u and pt agrees - DC planning with close outpatient follow up Dr Davila
--- NOTE | 2019-02-26 11:16 | ECHO ---
Name: RIZWANA THEODORE Exam:Adult Echocardiogram Study Date: 02/26/2019 09:03 AM Age: 63 yrs Reason For Study: Assess LV Function Height: 65 in Weight: 220 lb BSA: 2.1 m2 MMode/2D Measurements & Calculations IVSd: 1.5 cm Ao root diam: 2.2 cm LVIDd: 3.4 cm ACS: 1.4 cm LVIDs: 2.6 cm LVPWd: 1.5 cm EDV(Teich): 46.4 ml RV S David: 19.7 cm/sec ESV(Teich): 25.0 ml Doppler Measurements & Calculations MV E max david: 101.2 cm/sec Ao V2 max: 177.8 cm/sec MV A max david: 103.7 cm/sec Ao max P.6 mmHg MV E/A: 0.98 Ao V2 mean: 121.2 cm/sec MV dec time: 0.18 sec Ao mean P.9 mmHg Ao V2 VTI: 30.7 cm LV V1 max P.8 mmHg MR max david: 238.3 cm/sec LV V1 mean P.2 mmHg MR max P.7 mmHg LV V1 max: 198.8 cm/sec LV V1 mean: 119.6 cm/sec LV V1 VTI: 32.4 cm TR max david: 283.0 cm/sec Med Peak E' David: 10.2 cm/sec TR max P.4 mmHg Med E/e': 9.9 Lat Peak E' David: 12.2 cm/sec Lat E/e': 8.3 Procedure A complete two-dimensional transthoracic echocardiogram was performed (2D, M-mode, Doppler and color flow Doppler). Technically limited study. Left Ventricle The left ventricle is normal in size. Left ventricular systolic function is normal. Ejection Fraction = 60- 65%. No regional wall motion abnormalities noted. Right Ventricle The right ventricle is normal size. The right ventricular systolic function is normal. RV systolic TD I is 20 cm/s. Atria The left atrial size is normal. Right atrial size is normal. Mitral Valve The mitral valve is normal in structure and function. There is mild mitral regurgitation. Tricuspid Valve The tricuspid valve is normal in structure and function. There is mild tricuspid regurgitation. Pulmo nary artery systolic pressure is at least 44 mmHg if RA pressure is assumed 3 mmHg. Aortic Valve The aortic valve is normal in structure and function. No aortic regurgitation is present. Pulmonic Valve The pulmonic valve is not well visualized. Great Vessels The aortic root is normal size. Pericardium/Pleura There is no pericardial effusion. Interpretation Summary Technically limited study The left ventricle is normal in size. Left ventricular systolic function is normal. No regional wall motion abnormalities noted. Ejection Fraction = 60-65%. The right ventricular systolic function is normal. The left atrial size is normal. Right atrial size is normal. There is mild mitral regurgitation. There is mild tricuspid regurgitation. Pulmonary artery systolic pressure is at least 44 mmHg if RA pressure is assumed 3 mmHg There is no pericardial effusion. Previous study is not available for comparison Hermelindo Garcia MD 02/26/2019 11:15 AM
--- NOTE | 2019-02-26 11:40 | PN ---
Teaching Attending Note Name of Resident: Michele Ngo ATTENDING PHYSICIAN STATEMENT I saw and evaluated the patient. I reviewed the resident's note and discussed the case with the resident. I agree with the resident's findings and plan as documented. SUBJECTIVE: Several week history of cough/orthopnea/SOB worse on exertion. Completed 5 day Abx course as out-patient and has stress test scheduled in 2 weeks. Dyspnea improved with Lasix therapy. OBJECTIVE: Afebrile hemodynamically Stable. Last Vital Signs Temp Pulse Resp BP Pulse Ox 98.2 F 78 20 136/62 95 02/26/19 10:43 02/26/19 10:43 02/26/19 10:43 02/26/19 10:43 02/25/19 09:00 Heart - S1, S2, RRR Lungs - Decreased air entry R base with few crackles. No wheeze. Abdomen - High BMI. Soft, non-tender. Bowel Sounds normal. Extremities - Mild edema, no calf tenderness. Neuro - AAO x 3. Tone/Power normal all 4 extremities. Laboratory Results - last 24 hr 02/25/19 02/25/19 02/25/19 11:30 17:25 21:14 Sodium Potassium Chloride Carbon Dioxide Anion Gap BUN Creatinine Est GFR (CKD-EPI)AfAm Est GFR (CKD-EPI)NonAf POC Glucometer 317 406 218 Random Glucose Calcium 02/26/19 02/26/19 05:46 09:40 Sodium 132 L Potassium 4.2 Chloride 99 Carbon Dioxide 27 Anion Gap 6 L BUN 27.6 H Creatinine 1.4 H Est GFR (CKD-EPI)AfAm 62.40 Est GFR (CKD-EPI)NonAf 53.84 POC Glucometer 211 Random Glucose 383 H Calcium 9.2 Current Medications Generic Name Dose Route Start Last Admin Trade Name Freq PRN Reason Stop Dose Admin Amlodipine Besylate 10 mg 02/24/19 11:30 02/26/19 10:44 Norvasc - PO 10 mg DAILY RASHID Administration Atenolol 50 mg 02/24/19 11:00 02/26/19 10:46 Tenormin - PO 50 mg DAILY RASHID Administration Fenofibric Acid 135 mg 02/24/19 11:00 02/26/19 10:45 Trilipix - PO 135 mg DAILY RASHID Administration Heparin Sodium (Porcine) 5,000 unit 02/24/19 14:00 02/26/19 05:48 Heparin - SQ 5,000 unit TID RASHID Administration Ibuprofen 600 mg 02/24/19 14:00 02/26/19 05:48 Motrin - PO 600 mg TID RASHID Administration Insulin Aspart 1 vial 02/25/19 18:00 02/26/19 06:02 Novolog Vial Sliding Scale - SQ 6 units ACHS RASHID Administration Protocol Insulin Detemir 5 units 02/25/19 22:00 02/25/19 21:09 Levemir Vial SQ 5 units HS RASHID Administration Loratadine 10 mg 02/25/19 10:00 02/26/19 10:45 Claritin - PO 10 mg DAILY RASHID Administration Pantoprazole Sodium 40 mg 02/24/19 11:00 02/26/19 10:45 Protonix - PO 40 mg DAILY RASHID Administration Valsartan 320 mg 02/24/19 11:30 02/26/19 10:45 Diovan - PO 320 mg DAILY RASHID Administration Zolpidem Tartrate 5 mg 02/25/19 22:00 02/25/19 21:03 Ambien - PO 5 mg HS PRN Administration INSOMNIA Home Medications Medication Instructions Recorded Amlodipine/Valsartan/Hcthiazid 1 tab PO DAILY 02/24/19 [[id number]-Fmnnp-Fids 10-320-25 mg] Atenolol [Tenormin -] 50 mg PO DAILY 02/24/19 Fenofibrate,Micronized 200 mg PO DAILY 02/24/19 [Fenofibrate] Glipizide [Glipizide ER] 5 mg PO DAILY 02/24/19 Ibuprofen 600 mg PO TID 02/24/19 Omeprazole 40 mg PO DAILY 02/24/19 Furosemide [Lasix] 40 mg PO DAILY #5 tablet 02/26/19 ASSESSMENT AND PLAN: 63 year old male with history of HTN, HLD, DM 2, BPH, OA, presents with congestion, cough productive of clear sputum, without fever/chills/hemoptysis/CP , on background of worsening dyspnea on exertion and orthopnea for the past 3 weeks. Completed 5 day Abx course as out-patient and has stress test scheduled in 2 weeks. 1. Fluid overload with R Pleural Effusion, etiology unclear CT A/P - no PE, R pleural effusion wit lower lobe atelectasis, chronic lung disease, no acute pathology. Pulmonary evaluated for possible CT/Thoracentesis - for repeat CXR and consideration for Thoracentesis in 1 week as out-patient. Echo - normal LV function, normal EF. Pulmonary recommends short trial of Lasix with out-patient follow up. 2. Hyponatremia ? sec to dilution due to fluid overload +/- HCTZ HCTZ discontinued. 3. HTN - Continue Atenolol, Norvasc, Valsartan. HCTZ stopped. 4. HLD - normally on fenofibrate 5. DM 2 - resume Glipizide. 6. BPH - follows with Dr. Leiva. On testosterone injections. Medically optimized for discharge on trial of lasix with repeat CXR and Pulmonary eval for thoracentesis in 1 week.
--- NOTE | 2019-02-26 14:48 | DS ---
Physical Exam: SUBJECTIVE: Patient seen and examined at the bedside. Patient stated he felt better, did not have any difficulties breathing, and was eager to go home. Patient denied cp, sob, abd pain, n/v/c/d, fever, chills, cough, dizziness, lightheadedness, numbness, tingling, diaphoresis. OBJECTIVE: Vital Signs Period Temp Pulse Resp BP Sys/Toth Pulse Ox Last 24 Hr 97.8 F-98.4 F 78-91 20-20 121-139/58-68 96 PHYSICAL EXAM GENERAL: The patient is awake, alert, and fully oriented, in no acute distress. HEAD: Normal with no signs of trauma. EYES: PERRL, extraocular movements intact, sclera anicteric, conjunctiva clear. ENT: Oropharynx clear without exudates, moist mucous membranes. NECK: Trachea midline, full range of motion, supple. LUNGS: Noted crackles in the R lower lobe. No wheezes appreciated. HEART: Regular rate and rhythm, S1, S2 without murmur, rub. ABDOMEN: Soft, nontender, nondistended, normoactive bowel sounds, no guarding, no rebound, no masses. EXTREMITIES: 2+ pulses, warm, well-perfused, no edema. NEUROLOGICAL: Cranial nerves II through XII grossly intact. 5/5 muscle strength upper and lower extremities bilaterally. PSYCH: Normal mood, normal affect. SKIN: Warm, dry, normal turgor, no rashes or lesions noted. LABS Laboratory Results - last 24 hr 02/25/19 02/25/19 02/26/19 17:25 21:14 05:46 Sodium Potassium Chloride Carbon Dioxide Anion Gap BUN Creatinine Est GFR (CKD-EPI)AfAm Est GFR (CKD-EPI)NonAf POC Glucometer 406 218 211 Random Glucose Calcium 02/26/19 02/26/19 09:40 11:37 Sodium 132 L Potassium 4.2 Chloride 99 Carbon Dioxide 27 Anion Gap 6 L BUN 27.6 H Creatinine 1.4 H Est GFR (CKD-EPI)AfAm 62.40 Est GFR (CKD-EPI)NonAf 53.84 POC Glucometer 322 Random Glucose 383 H Calcium 9.2 HOSPITAL COURSE: Ronan Daigle is a 63 year old male with a past medical history of HTN, HLD, BPH, T2DM, arthritis who was admitted for dyspnea on exertion, productive cough , orthopnea. Patient underwent a CT Chest which showed no PE, R pleural effusion with lower lobe atelectasis, chronic lung disease. Patient was given Lasix to treat pleural effusion. Patient was seen by pulmonary who recommended that the patient undergo a thoracocentesis, however patient was on NSAIDs and stated that he did not want to remain in the hospital was recommended to follow up with pulmonology outpatient. Pulmonology was spoken to and recommended that the patient remain on Lasix 40mg PO for 5 days after discharge. Patient received an appointment on March 13 at 1:30 for pulmonology follow up. Patient also presented with hyponatremia (corrected 132) which likely from fluid overload. Patient was treated with Lasix and by discharged improved to a corrected sodium of 137. Patient's hydrochlorothiazide was stopped when patient was prescribed outpatient Lasix. Patient received an echocardiogram which showed LVEF 60-65%, normal LV and RV size and function, mild mitral and tricuspid regurg, elevated pulmonary artery systolic pressure. He received a copy of the echo results. Patient was spoken to and stressed the need for adequate pulmonology follow up. Patient will follow up with his inorganic chemist (Dr. Phi Davis) for stress test. Patient was spoken to about medication changes and need for adequate medical follow up with primary care and specialists. Patient voiced understanding to the plan and stated agreement. Patient was discharged in stable medical condition. Date of Admission:02/24/19 Date of Discharge: 02/26/19 Minutes to complete discharge: 35 Discharge Summary Problems reviewed: Yes Reason For Visit: SOB O EXERTION,PLEURAL EFFUSION,SENSATION OF CHEST Condition: Improved - Instructions Diet, Activity, Other Instructions: You were admitted to the hospital for shortness of breath. You had a chest CT scan which showed fluid in your right lung. 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 Your echocardiogram results are provided with you on discharge so you can take them to your follow up appointments to your inorganic chemist and middle school football coach. You were give Lasix to remove fluid from your lungs. MEDICATIONS We have made the following changes to your medications: Please STOP taking Oupdxhxzzr-Ayjmqwfqt-OJTQ combination pill. START taking Lasix 40 mg daily for 5 days. START taking Amlodipine 10mg daily and follow up with your primary care provider and inorganic chemist. START taking Valsartan 320mg daily and follow up with your primary care provider and inorganic chemist. Please continue to take the rest of your home medications as prescribed. REFERRALS Please follow up with your primary care doctor, Dr. Otoniel Harrison within 1 week. You will need repeat blood work to check your electrolytes (BMP). Please follow up with the chest x-ray within 1 week and then follow up with Dr. Hector Davis (middle school football coach) afterwards. Please follow up with your inorganic chemist, Dr. Phi Davis for your stress test. Please take the results of your CT scan and echocardiogram to your inorganic chemist. If you have any further symptoms of shortness of breath, chest pain, dizziness, lightheadedness, fever, chills, or other general feelings of unwellness please call 911 or go your nearest emergency room. Referrals: Otoniel Harrison [Other] - 1 Week Phi Davis [Other] - 1 Week Hector Davis MD, [Staff Physician] - 1 Week Disposition: HOME - Home Medications Comprehensive Discharge Medication List: Ambulatory Orders Atenolol [Tenormin -] 50 mg PO DAILY 02/24/19 Fenofibrate,Micronized [Fenofibrate] 200 mg PO DAILY 02/24/19 Glipizide [Glipizide ER] 5 mg PO DAILY 02/24/19 Ibuprofen 600 mg PO TID 02/24/19 Omeprazole 40 mg PO DAILY 02/24/19 Amlodipine Besylate [Norvasc -] 10 mg PO DAILY #30 tablet 02/26/19 Furosemide [Lasix] 40 mg PO DAILY #5 tablet 02/26/19 Valsartan [Diovan] 320 mg PO DAILY #60 tablet 02/26/19 Problem List - Problems (1) Chest tightness Code(s): R07.89 - OTHER CHEST PAIN (2) Pleural effusion Code(s): J90 - PLEURAL EFFUSION, NOT ELSEWHERE CLASSIFIED (3) Shortness of breath on exertion Code(s): R06.02 - SHORTNESS OF BREATH This patient is new to me today: Yes Date on this admission: 02/26/19 Emergency Visit: No Critical Care patient: No - Discharge Referral Referred to [facility] No
== END 2019-02-26 12:40 | disposition home or self-care (01) | DRG 187 ==
LOC: JER 04:47 → JERBED 08:20 → J5S 17:34
DX: J90 Pleural effusion, not elsewhere classified (principal); E87.1 Hypo-osmolality and hyponatremia; J98.11 Atelectasis; N40.0 Benign prostatic hyperplasia without lower urinary tract symptoms; E11.9 Type 2 diabetes mellitus without complications; E78.5 Hyperlipidemia, unspecified; I10 Essential (primary) hypertension; Z79.84 Long term (current) use of oral hypoglycemic drugs; I36.1 Nonrheumatic tricuspid (valve) insufficiency
CPT/HCPCS: 36415; 71046-TC-FY; 71275-TC; 80048; 80053; 82436; 82550; 82962; 83880; 83930; 83935; 84133; 84300; 84484; 85025; 85027; 87070; 87804; 87880; 93005; 93010; 93306-TC; 99283-25; J1644; J7030

== ENCOUNTER 2019-03-19 09:42 | Day surgery (SDC) | payer BC ==
[2019-03-19 10:27] LABS: BASO % 0.4 % (0-2.0); EOS % 2.5 % (0-4.5); HEMATOCRIT 39.9 % (35.4-49); HEMOGLOBIN 12.9 GM/dL (11.7-16.9); LYMPH % 15.8 % (8-40); MCH 27.2 pg (25.7-33.7); MCHC 32.4 g/dl (32.0-35.9); MEAN CELL VOLUME 83.9 fl (80-96); MEAN PLT VOLUME 8.3 fl (7.5-11.1); MONO % 5.2 % (3.8-10.2); NEUT % 76.1 % (42.8-82.8); PLATELET COUNT 154 K/MM3 (134-434); RBC 4.75 M/mm3 (4.00-5.60); RDW 16.4 % (11.9-15.9); WHITE BLOOD COUNT 13.5 K/mm3 (4.0-10.0)
[2019-03-19 10:45] LABS: INR 1.22 (0.83-1.09); PROTHROMBIN TIME (PATIENT) 14.4 SEC (9.7-13.0)
[2019-03-19 12:15] LABS: ANISOCYTOSIS 1+; MACROCYTOSIS 1+
[2019-03-19 12:28] LABS: PLATELET ESTIMATE ADEQUATE
[2019-03-19 15:44] VITALS: BP 135/70; PULSE 88; TEMP 97.5
--- NOTE | 2019-03-21 17:04 | PATH ---
Cytology Non-Gynecological Report Patient Name: RIZWANA THEODORE [facility]. Rec. #: [id number] /Age/Gender: 1955 (Age: 63) / M Account: [id number] Location: RADIOLOGY INTER Taken: 03/19/2019 Received: 03/19/2019 Reported: 03/21/2019 Physicians: Willian Vera M.D. Specimen(s) Received PLEURAL FLUID Clinical History Pleural effusion Final Diagnosis PLEURAL FLUID, THORACENTESIS: SATISFACTORY FOR EVALUATION NO MALIGNANT CELLS IDENTIFIED. RARE MESOTHELIAL CELLS IN A BACKGROUND OF PROTEINACEOUS DEBRIS/MATERIAL AND DEGENERATED CELLS. Electronically Signed Debra Sutton M.D. Gross Description Approximately 10 cc of bloody fluid received fixed in 50% alcohol. One cytofunnel prepared and Pap stained. One cellblock prepared.
== END 2019-03-19 15:40 | disposition home or self-care (01) ==
LOC: JRADIR 09:42
PROVIDERS: ATTEND Specialist
PROC: 0W993ZZ Drainage of Right Pleural Cavity, Percutaneous Approach (ICD-10-PCS; principal; 2019-03-19)
PROC: BB4BZZZ Ultrasonography of Pleura (ICD-10-PCS; 2019-03-19)
DX: J90 Pleural effusion, not elsewhere classified (principal)
CPT/HCPCS: 36415; 71045-TC-FY; 76942; 82962; 85025; 85610; 87070; 87075; 87102; 87116; 87205; 87206; 87210; 88108; 88305-TC

== ENCOUNTER 2019-04-02 10:16 | Inpatient (IN) | payer BC ==
--- NOTE | 2019-04-02 11:34 | EKG ---
Test Reason : Blood Pressure : / mmHG Vent. Rate : 077 BPM Atrial Rate : 077 BPM P-R Int : 136 ms QRS Dur : 092 ms QT Int : 396 ms P-R-T Axes : 041 045 000 degrees QTc Int : 448 ms NORMAL SINUS RHYTHM NORMAL ECG WHEN COMPARED WITH ECG OF 24-FEB-2019 05:53, NO SIGNIFICANT CHANGE WAS FOUND Confirmed by RUFINA ANGLIN MD ([id number]) on 04/02/2019 11:33:32 AM Referred By: Confirmed By:RUFINA ANGLIN MD
--- NOTE | 2019-04-02 11:48 | PDOC ---
History of Present Illness - General Chief Complaint: Shortness of Breath Stated Complaint: SOB Time Seen by Provider: 04/02/19 11:04 - History of Present Illness Initial Comments: HPI: 63yo M with PMH of HTN, HLD, BPH, DM, arthritis presenting with shortness of breath x 3 weeks. Notably, patient was admitted for dyspnea on exertion, productive cough, and orthopnea from 02/24-. He was discharged with lasix and followed up with pulmonology who performed a thoracentesis about three weeks ago. He also had a cardiac workup which was 'fine.' Patient states he felt better after the procedure, but his shortness of breath returned and acutely worsened on 03/27/19. States compliance with all medications. No fevers , but endorses chills. No sick contacts or recent travel. PCP: Dr. Nikki Higginsm: Dr. Davis ROS: Constitutional: no fever, +chills HEENT: no throat pain, no dysphagia Cardiovascular: no chest pain, no palpitations Respiratory: +cough, +shortness of breath Gastrointestinal: no abdominal pain, no nausea Genitourinary: no dysuria, no hematuria Musculoskeletal: no myalgia, no arthralgia Skin: no rash, no itching Neurologic: no headache, no weakness PE: General: Awake, alert, and fully oriented, in no acute distress Head: No signs of trauma Eyes: EOMI, sclera anicteric ENT: Moist mucus membranes Neck: Normal ROM, supple Lungs: Decreased lung sounds at the bases Cardio: Regular rhythm, S1 and S2 present Abdomen: Soft, nontender Extremities: Normal range of motion, Distal pulses present, 1+ pitting edema in BLE, no calf tenderness SKIN: Warm, Dry, normal turgor Neurologic: Cranial nerves II through XII grossly intact. Normal speech ED Course/MDM: DDX including but not limited to ACS, PE, PNA, pleural effusion, anemia, metabolic derangement VS significant for mild hypoxia, 94% on room air Labs, EKG, CXR EKG: rate 77,k Qtc 448, NSR 04/02/19 11:48 CXR as read by radiology: " EXAM#: TYPE/EXAM: RESULT: [id number] RAD/CHEST PA LAT Chest: Shortness of breath A single view the chest reveals new atelectasis or infiltrate with fluid at the left base with chronic changes at the right base when compared to 03/19/2019. The remainder of the study is unchanged. Reported By: Michele Arrington MD 04/02/19 1207 " 04/02/19 12:27 ECHO on 02/26/19 was grossly normal with EF 60-65% 04/02/19 14:21 CBC WBC 12.2 K/mm3 (4.0-10.0) H 04/02/19 13:00 RBC 4.62 M/mm3 (4.00-5.60) 04/02/19 13:00 Hgb 12.1 GM/dL (11.7-16.9) 04/02/19 13:00 Hct 37.9 % (35.4-49) 04/02/19 13:00 MCV 82.1 fl (80-96) 04/02/19 13:00 MCH 26.1 pg (25.7-33.7) 04/02/19 13:00 MCHC 31.8 g/dl (32.0-35.9) L 04/02/19 13:00 RDW 16.3 % (11.9-15.9) H 04/02/19 13:00 Plt Count 327 K/MM3 (134-434) D 04/02/19 13:00 MPV 8.3 fl (7.5-11.1) 04/02/19 13:00 Absolute Neuts (auto) 9.0 K/mm3 (1.5-8.0) H 04/02/19 13:00 Neutrophils % 74.3 % (42.8-82.8) 04/02/19 13:00 Neutrophils % (Manual) 76.0 % (42.8-82.8) 04/02/19 13:00 Band Neutrophils % 0.0 % 04/02/19 13:00 Lymphocytes % 16.1 % (8-40) 04/02/19 13:00 Lymphocytes % (Manual) 9.0 % (8-40) 04/02/19 13:00 Monocytes % 6.2 % (3.8-10.2) 04/02/19 13:00 Monocytes % (Manual) 9 % (3.8-10.2) 04/02/19 13:00 Eosinophils % 2.7 % (0-4.5) 04/02/19 13:00 Eosinophils % (Manual) 5.0 % (0-4.5) H D 04/02/19 13:00 Basophils % 0.7 % (0-2.0) 04/02/19 13:00 Basophils % (Manual) 0.0 % (0-2.0) 04/02/19 13:00 Myelocytes % (Man) 1 % (0-2) D 04/02/19 13:00 Promyelocytes % (Man) 0 % (0-2) 04/02/19 13:00 Blast Cells % (Manual) 0 % (0-0) 04/02/19 13:00 Nucleated RBC % 0 % (0-0) 04/02/19 13:00 Metamyelocytes 0 % (0-2) 04/02/19 13:00 Hypochromia 0 04/02/19 13:00 Platelet Estimate Normal 04/02/19 13:00 Polychromasia 0 04/02/19 13:00 Poikilocytosis 0 04/02/19 13:00 Anisocytosis 0 04/02/19 13:00 Microcytosis 0 04/02/19 13:00 Macrocytosis 0 04/02/19 13:00 Mild leukocytosis CMP Sodium 138 mmol/L (136-145) 04/02/19 13:00 Potassium 3.8 mmol/L (3.5-5.1) 04/02/19 13:00 Chloride 104 mmol/L (98-107) 04/02/19 13:00 Carbon Dioxide 24 mmol/L (21-32) 04/02/19 13:00 Anion Gap 10 MMOL/L (8-16) 04/02/19 13:00 BUN 21.4 mg/dL (7-18) H 04/02/19 13:00 Creatinine 1.4 mg/dL (0.55-1.3) H 04/02/19 13:00 Est GFR (CKD-EPI)AfAm 62.40 04/02/19 13:00 Est GFR (CKD-EPI)NonAf 53.84 04/02/19 13:00 Random Glucose 137 mg/dL (74-106) H 04/02/19 13:00 Calcium 9.2 mg/dL (8.5-10.1) 04/02/19 13:00 Total Bilirubin 0.5 mg/dL (0.2-1) 04/02/19 13:00 AST 20 U/L (15-37) 04/02/19 13:00 ALT 32 U/L (13-61) 04/02/19 13:00 Alkaline Phosphatase 110 U/L (45-117) 04/02/19 13:00 Creatine Kinase 109 U/L (26-308) 04/02/19 13:00 Troponin I < 0.02 ng/ml (0.00-0.05) 04/02/19 13:00 B-Natriuretic Peptide 548.5 pg/ml (5-125) H 04/02/19 13:00 Total Protein 7.5 g/dl (6.4-8.2) 04/02/19 13:00 Albumin 3.6 g/dl (3.4-5.0) 04/02/19 13:00 Electrolytes unremarkable Mildly elevated Cr No transaminitis Tpn undetectable BNP mildly elevated CT Chest without contrast: "EXAM#: TYPE/EXAM: RESULT: [id number] CT/CHEST CT WITHOUT CONTRAST INDICATION: Shortness of breath TECHNIQUE: Helical images of the chest were obtained noncontrast . 3-D MIP images were submitted for evaluation, generated on an independent workstation. COMPARISON: 02/24/2019 FINDINGS: LUNGS: Patchy groundglass opacities are noted which have increased in size and number as compared to prior CT. No endobronchial lesions are seen. PLEURA: Small pleural effusions are present bilaterally. MEDIASTINUM: Thyroid is homogeneous. No pathologic adenopathy seen. CARDIAC: Negative. OTHER: Adrenals appear unremarkable. Spondylotic changes are present of the spine. No aggressive bone lesions seen. IMPRESSION: Groundglass opacities which have increased as compared to prior CT. Are noted bilaterally. Inflammatory/ infectious process to be excluded. Follow-up imaging is recommended as clinically warranted. Bilateral small pleural effusions, new on the left side as compared to prior imaging. Reported By: Stevie Medrano MD 04/02/19 4451 " Call to [phone], spoke with law secretary who suggested calling overhead for Dr. Davis 04/02/19 15:19 This may be undiagnosed COPD; we will treat with duonebs and solumedrol Pulmonology paged overhead 04/02/19 16:03 Dr. Kwan discussed case with Dr. Lewis who recommends admission under Dr. Nicole's service Dr. Kwan discussed case with Dr. Davis; consult order placed Hospital admission is needed for appropriate care of the patient because of evidence of respiratory compromise as indicated by bilateral pleural effusions; Also, patient with chronic lung disease with severe deterioration as indicated by worsening dyspnea on exertion 04/02/19 16:[address] Saul/Corey's service [phone]; awaiting callback 04/02/19 16:31 Microblog sent to [employer] team 04/02/19 17:01 Discussed case with MARY Lees who accepted patient for med/surg admission under Dr. Najera 04/02/19 17:29 Past History - Past Medical History Allergies/Adverse Reactions: Allergies Allergy/AdvReac Type Severity Reaction Status Date / Time No Known Allergies Allergy Verified 04/02/19 10:39 Home Medications: Ambulatory Orders Atenolol [Tenormin -] 50 mg PO DAILY 02/24/19 Fenofibrate,Micronized [Fenofibrate] 200 mg PO DAILY 02/24/19 Glipizide [Glipizide ER] 5 mg PO DAILY 02/24/19 Ibuprofen 600 mg PO TID 02/24/19 Omeprazole 40 mg PO DAILY 02/24/19 Amlodipine Besylate [Norvasc -] 10 mg PO DAILY #30 tablet 02/26/19 Furosemide [Lasix] 40 mg PO DAILY #5 tablet 02/26/19 Valsartan [Diovan] 320 mg PO DAILY #60 tablet 02/26/19 Anemia: No Asthma: No Cancer: No Cardiac Disorders: Yes CVA: No COPD: No CHF: Yes Dementia: No Diabetes: Yes (273) GI Disorders: No Disorders: No HTN: Yes Hypercholesterolemia: Yes Liver Disease: No Seizures: No Thyroid Disease: No - Surgical History Cholecystectomy: Yes Orthopedic Surgery: Yes (b meniscus, r ankle sx) - Psycho Social/Smoking Cessation Hx Smoking History: Never smoked Have you smoked in the past 12 months: No Hx Alcohol Use: No Drug/Substance Use Hx: No Substance Use Type: None Hx Substance Use Treatment: No *Physical Exam - Vital Signs Last Vital Signs Temp Pulse Resp BP Pulse Ox 97.9 F 81 20 141/69 94 L 04/02/19 10:36 04/02/19 10:36 04/02/19 10:36 04/02/19 10:36 04/02/19 10:36 ED Treatment Course - LABORATORY CBC & Chemistry Diagram: 04/02/19 13:00 04/02/19 13:00 - RADIOLOGY Radiology Studies Ordered: Category Date Time Status CHEST X-RAY PORTABLE* [RAD] Stat Radiology 04/02/19 11:05 Ordered Discharge - Discharge Information Problems reviewed: No Clinical Impression/Diagnosis: Ground glass opacity present on imaging of lung, Shortness of breath, Bilateral pleural effusion Condition: Guarded - Admission Yes - Follow up/Referral - Patient Discharge Instructions - Post Discharge Activity
--- NOTE | 2019-04-02 13:05 | PDOC ---
Attending Attestation - Resident Resident Name: Jackie Looney - ED Attending Attestation I have performed the following: I have examined & evaluated the patient, The case was reviewed & discussed with the resident, I agree w/resident's findings & plan, Exceptions are as noted - HPI HPI: 04/02/19 14:14 63 years old the past medical history significant for hypertension hyperlipidemia BPH type 2 diabetes presents with greater than 6-week history of shortness of breath. Patient has had dyspnea on exertion orthopnea over the last month and a half has had a stress test and thoracentesis performed for pleural effusion with no significant improvement in symptomatology as well as being started on Lasix Presents today with persistence of symptoms. - Physicial Exam PE: 04/02/19 14:14 Vitals: Triage Vital signs reviewed General Appearance: No acute distress, well nourished well developed, Head: Atraumatic, Cardiac: Regular rate and rhythym, no murmurs, no rubs, no gallops, Lungs: Fine crackles at the bases bilaterally, Abdomen: Soft, non distended, normal bowel sounds, non tender to palpation Extremities: Full range of motion to all extremities, no cyanosis, clubbing, or edema Skin: Warm and dry, no rashes or lesions, no rash, no petechiae Psych: Normal mood, normal affect - Medical Decision Making 04/02/19 17:51 Worsening groundglass opacities on chest CT 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
[2019-04-02] MEDS ORDERED: ALBUTEROL SO4 2.5/IPRATROPIUM 0.5 INH SOL 3 ML VIAL.NEB. NEB ONE ×2 (13:06→13:14)
[2019-04-02 13:23] LABS: BASO % 0.7 % (0-2.0); EOS % 2.7 % (0-4.5); HEMATOCRIT 37.9 % (35.4-49); HEMOGLOBIN 12.1 GM/dL (11.7-16.9); LYMPH % 16.1 % (8-40); MCH 26.1 pg (25.7-33.7); MCHC 31.8 g/dl (32.0-35.9); MEAN CELL VOLUME 82.1 fl (80-96); MEAN PLT VOLUME 8.3 fl (7.5-11.1); MONO % 6.2 % (3.8-10.2); NEUT % 74.3 % (42.8-82.8); PLATELET COUNT 327 K/MM3 (134-434); RBC 4.62 M/mm3 (4.00-5.60); RDW 16.3 % (11.9-15.9); WHITE BLOOD COUNT 12.2 K/mm3 (4.0-10.0)
[2019-04-02 13:58] LABS: ALBUMIN 3.6 g/dl (3.4-5.0); BILIRUBIN,TOTAL 0.5 mg/dL (0.2-1); BLOOD UREA NITROGEN 21.4 mg/dL (7-18); CALCIUM 9.2 mg/dL (8.5-10.1); CREATININE 1.4 mg/dL (0.55-1.3); N-TERMINAL BNP 548.5 pg/ml (5-125); POTASSIUM 3.8 mmol/L (3.5-5.1); TOT PROT 7.5 g/dl (6.4-8.2)
[2019-04-02 14:59] LABS: ANISOCYTOSIS 0; MACROCYTOSIS 0; PLATELET ESTIMATE NORMAL
[2019-04-02] MEDS ORDERED: methylPREDNISolone NA SUCC 125 MG/2 ML VIAL IVPUSH ONE (17:52)
--- NOTE | 2019-04-02 18:05 | HP ---
CHIEF COMPLAINT: shortness of breath with physical exertion, unable to lay flat PCP: Dr. Harrison Cardio: Dr. Davis ([facility]) Pulmonary: Dr. Lewis HISTORY OF PRESENT ILLNESS: Patient is a 63 year old male with a significant past medical history of hypertension, hyperlipidemia, bph,diabetes type 2, arthritis, right ankle fracture with metal plates, bilateral knee surgery. He presents to the ED today with complaints of shortness of breath and unable to lay flat or walk more than 30 feet without severe dyspnea for 3 weeks but worsening prompting him to come back to the ED. Patient with a recent admission for dyspnea, productive cough, and orthopnea at [facility] from 02/24/19 to 02/26/2019. He had a thoracentesis done for right sided pleural effusion on 03/19/19 with 200cc of fluid removed as an outpatient. He states states compliance with all medications including the home lasix. No fevers, but endorses chills. No sick contacts or recent travel. ER course was notable for: (1) levaquin 750mg x 1 (2) chest ct: ground glass opacities which ahve increased compared to prior CT - noted bilaterally inflammatory/infectious process to be excluded. bilateral small pleural effusions, new on the left side as compared to prior imaging. 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 Allergies No Known Allergies Allergy (Verified 04/02/19 10:39) HOME MEDICATIONS: Home Medications Medication Instructions Recorded Atenolol [Tenormin -] 50 mg PO DAILY 02/24/19 Fenofibrate,Micronized 200 mg PO DAILY 02/24/19 [Fenofibrate] Glipizide [Glipizide ER] 5 mg PO DAILY 02/24/19 Ibuprofen 600 mg PO TID 02/24/19 Omeprazole 40 mg PO DAILY 02/24/19 Amlodipine Besylate [Norvasc -] 10 mg PO DAILY #30 tablet 02/26/19 Furosemide [Lasix] 40 mg PO DAILY #5 tablet 02/26/19 Valsartan [Diovan] 320 mg PO DAILY #60 tablet 02/26/19 PHYSICAL EXAMINATION Vital Signs - 24 hr 04/02/19 10:36 Temperature 97.9 F Pulse Rate 81 Respiratory 20 Rate Blood Pressure 141/69 O2 Sat by Pulse 94 L Oximetry (%) GENERAL: cooperative, well-appearing male. in no acute distress, tolerating room air, alert and oriented x 3 HEENT: Facial muscles intact. NECK: Normal range of motion, supple without lymphadenopathy, JVD, or masses. LUNGS: diminished at the bases, clear upper lobes. Symmetric chest rise. HEART: RRR. Normal S1, S2. No murmurs noted . ABDOMEN: Obese, soft. Normoactive bowel sounds MUSCULOSKELETAL: Normal range of motion at all joints. No bony deformities or tenderness. No CVA tenderness. UPPER EXTREMITIES: No peripheral edema. LOWER EXTREMITIES: +1 right lower ext edema s/p ankle surgery 4 months ago NEUROLOGICAL: Normal gait. PSYCHIATRIC: Cooperative. Good eye contact. Appropriate mood and affect. SKIN: Warm, dry, normal turgor, no rashes or lesions noted, normal capillary refill. Laboratory Results - last 24 hr 04/02/19 04/02/19 04/02/19 13:00 13:00 13:00 WBC 12.2 H RBC 4.62 Hgb 12.1 Hct 37.9 MCV 82.1 MCH 26.1 MCHC 31.8 L RDW 16.3 H Plt Count 327 D MPV 8.3 Absolute Neuts (auto) 9.0 H Neutrophils % 74.3 Neutrophils % (Manual) 76.0 Band Neutrophils % 0.0 Lymphocytes % 16.1 Lymphocytes % (Manual) 9.0 Monocytes % 6.2 Monocytes % (Manual) 9 Eosinophils % 2.7 Eosinophils % (Manual) 5.0 H D Basophils % 0.7 Basophils % (Manual) 0.0 Myelocytes % (Man) 1 D Promyelocytes % (Man) 0 Blast Cells % (Manual) 0 Nucleated RBC % 0 Metamyelocytes 0 Hypochromia 0 Platelet Estimate Normal Polychromasia 0 Poikilocytosis 0 Anisocytosis 0 Microcytosis 0 Macrocytosis 0 Sodium 138 Potassium 3.8 Chloride 104 Carbon Dioxide 24 Anion Gap 10 BUN 21.4 H Creatinine 1.4 H Est GFR (CKD-EPI)AfAm 62.40 Est GFR (CKD-EPI)NonAf 53.84 Random Glucose 137 H Calcium 9.2 Total Bilirubin 0.5 AST 20 ALT 32 Alkaline Phosphatase 110 Creatine Kinase 109 Troponin I < 0.02 B-Natriuretic Peptide 548.5 H Total Protein 7.5 Albumin 3.6 ASSESSMENT/PLAN: Problem List - Problem (1) Shortness of breath on exertion Assessment/Plan: patient reports shortness of breath initially improved s/p thoracentesis, now again with dyspnea with physical exertion continue home lasix monitor intake/output bnp 548 supplemental oxygen as needed pulmonary consulted Code(s): R06.02 - SHORTNESS OF BREATH (2) Bilateral pleural effusion Assessment/Plan: chest ct showed grounde glass opacities which have increased since prior CT, bilateral small pleural effusions, new on left also seen Had a CTA done on last admission, negative for PE, a partially loculated r pleural effusion w/ lower lobe atelectasis seen on last image. On Lasix 40 PO Given Levaquin 750mg x 1 in the ED Pulmonary consulted Echo 02/26/2019: LV normal, ef 60-65%, mild MR, mild TR, no pleural effusion Code(s): J90 - PLEURAL EFFUSION, NOT ELSEWHERE CLASSIFIED (3) Ground glass opacity present on imaging of lung Code(s): R91.8 - OTHER NONSPECIFIC ABNORMAL FINDING OF LUNG FIELD (4) Diabetes Assessment/Plan: hold home meds bgms with novolog ss Code(s): E11.9 - TYPE 2 DIABETES MELLITUS WITHOUT COMPLICATIONS (5) Prophylactic measure Assessment/Plan: fen no ivf monitor electrolytes low salt diet, diabetic heparin Code(s): Z29.9 - ENCOUNTER FOR PROPHYLACTIC MEASURES, UNSPECIFIED Visit type - Emergency Visit Emergency Visit: Yes ED Registration Date: 04/02/19 Care time: The patient presented to the Emergency Department on the above date and was hospitalized for further evaluation of their emergent condition. - New Patient This patient is new to me today: Yes Date on this admission: 04/02/19 - Critical Care Critical Care patient: No
[2019-04-02] MEDS ORDERED: traMADol HCL 50 MG TABLET ONE (18:26)
[2019-04-02] MEDS ORDERED: methylPREDNISolone NA SUCC 125 MG/2 ML VIAL ONE (18:27)
[2019-04-02] MEDS: traMADol HCL 50 MG TABLET PO PRN (18:36)
[2019-04-02] MEDS ORDERED: LORATADINE 10 MG TABLET PO ONE (20:38)
[2019-04-02] MEDS: INSULIN SLIDING SCALE (NOVOLOG) 1 VIAL SQ SCH (21:53)
[2019-04-02] MEDS: ZOLPIDEM TARTRATE 5 MG TABLET PO PRN (21:57)
[2019-04-03 01:44] VITALS: BMI 35.9
[2019-04-03] MEDS: traMADol HCL 50 MG TABLET PO PRN ×2 (02:32→10:28)
[2019-04-03] MEDS: INSULIN SLIDING SCALE (NOVOLOG) 1 VIAL SQ SCH ×4 (06:19→22:06)
[2019-04-03] MEDS ORDERED: glipiZIDE-XL 5 MG TAB.ER.24 PO SCH (07:00)
[2019-04-03 07:51] LABS: HEMATOCRIT 36.2 % (35.4-49); HEMOGLOBIN 11.5 GM/dL (11.7-16.9); MCH 26.3 pg (25.7-33.7); MCHC 31.9 g/dl (32.0-35.9); MEAN CELL VOLUME 82.6 fl (80-96); MEAN PLT VOLUME 8.5 fl (7.5-11.1); PLATELET COUNT 322 K/MM3 (134-434); RBC 4.38 M/mm3 (4.00-5.60); RDW 16.2 % (11.9-15.9); WHITE BLOOD COUNT 12.8 K/mm3 (4.0-10.0)
[2019-04-03 08:10] LABS: ALBUMIN 3.4 g/dl (3.4-5.0); BILIRUBIN,TOTAL 0.4 mg/dL (0.2-1); BLOOD UREA NITROGEN 20.7 mg/dL (7-18); CALCIUM 9.2 mg/dL (8.5-10.1); CREATININE 1.3 mg/dL (0.55-1.3); MAGNESIUM 1.7 mg/dL (1.8-2.4); POTASSIUM 4.5 mmol/L (3.5-5.1); TOT PROT 7.6 g/dl (6.4-8.2)
[2019-04-03] MEDS: PANTOPRAZOLE 40 MG TABLET (FP) PO SCH (09:16)
[2019-04-03] MEDS: VALSARTAN 160 MG TABLET (UD) PO SCH (09:16)
[2019-04-03] MEDS: amLODIPine BESYLATE 10 MG TABLET (FP) PO SCH (09:16)
[2019-04-03] MEDS: ATENOLOL 50 MG TABLET (FP) PO SCH (09:17)
[2019-04-03] MEDS: FUROSEMIDE 40 MG TABLET (FP) PO SCH (09:17)
[2019-04-03] MEDS: FENOFIBRIC ACID 135 MG CAP PO SCH (11:29)
--- NOTE | 2019-04-03 11:37 | CON.PULM ---
Consult Consult Specialty:: PULMONARY Referred by:: MARY Fair Reason for Consultation:: shortness of breath - History of Present Illness Chief Complaint: shortness of breath History of Present Illness: 63yo male with h/o HTN, hyperlipidemia, DM, BPH who was admitted with worsening shortness of breath for the past month. Was hospitalized last month for similar complaints, had a thoracentesis as outpt with temporary improvement. Cytology negative, do not see pleural fluid chemistries or cell count but was described as dark blood. No fevers but with chills. No unintentional weight loss, maintains good appetite. Reports orthopnea. CT chest done showing slightly increased scattered ground glass opacities. 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 - History Source History Provided By: Patient, Medical Record Limitations to Obtaining History: No Limitations - Past Medical History Cardio/Vascular: Yes: HTN, Hyperlipdemia Endocrine: Yes: Diabetes Mellitus - Alcohol/Substance Use Hx Alcohol Use: No - Smoking History Smoking history: Never smoked Have you smoked in the past 12 months: No Home Medications - Allergies Allergies/Adverse Reactions: Allergies Allergy/AdvReac Type Severity Reaction Status Date / Time No Known Allergies Allergy Verified 04/02/19 10:39 - Home Medications Home Medications: Ambulatory Orders Atenolol [Tenormin -] 50 mg PO DAILY 02/24/19 Fenofibrate,Micronized [Fenofibrate] 200 mg PO DAILY 02/24/19 Glipizide [Glipizide ER] 5 mg PO DAILY 02/24/19 Ibuprofen 600 mg PO TID 02/24/19 Omeprazole 40 mg PO DAILY 02/24/19 Amlodipine Besylate [Norvasc -] 10 mg PO DAILY #30 tablet 02/26/19 Furosemide [Lasix] 40 mg PO DAILY #5 tablet 02/26/19 Valsartan [Diovan] 320 mg PO DAILY #60 tablet 02/26/19 Review of Systems - Review of Systems Constitutional: reports: Chills. denies: Fever, Night Sweats, Unintentional Wgt. Loss Eyes: denies: Recent Change in Vision HENT: denies: Nasal Congestion, Throat Pain Neck: denies: Stiffness, Tenderness Cardiovascular: reports: Edema, Shortness of Breath. denies: Chest Pain Respiratory: reports: Cough. denies: Hemoptysis, Wheezing Gastrointestinal: denies: Abdominal Pain, Nausea, Vomiting Genitourinary: denies: Dysuria, Hematuria Neurological: denies: Dizziness, Headache Endocrine: denies: Unexplained Weight Loss Physical Exam Vital Sings: Vital Signs Temperature 98 F 04/03/19 09:00 Pulse Rate 105 H 04/03/19 09:00 Respiratory Rate 18 04/03/19 09:00 Blood Pressure 155/81 04/03/19 09:00 O2 Sat by Pulse Oximetry (%) 91 L 04/03/19 09:00 Constitutional: Yes: Calm Eyes: Yes: Conjunctiva Clear, EOM Intact HENT: Yes: Atraumatic, Normocephalic Neck: Yes: Supple, Trachea Midline Cardiovascular: Yes: Regular Rate and Rhythm Respiratory: Yes: Diminished (decreased breath sounds at the bases) ...Clubbing: No Gastrointestinal: Yes: Normal Bowel Sounds, Soft. No: Tenderness Edema: Yes Neurological: Yes: Alert, Oriented Labs: CBC, BMP 04/03/19 06:50 04/03/19 06:50 Imaging - Results Chest X-ray: Report Reviewed, Image Reviewed Cat Scan: Report Reviewed, Image Reviewed (scattered GGO, bilateral effusions) Problem List - Problems (1) Bilateral pleural effusion Code(s): J90 - PLEURAL EFFUSION, NOT ELSEWHERE CLASSIFIED (2) Ground glass opacity present on imaging of lung Code(s): R91.8 - OTHER NONSPECIFIC ABNORMAL FINDING OF LUNG FIELD (3) Shortness of breath Code(s): R06.02 - SHORTNESS OF BREATH Assessment/Plan r/o Interstitial Lung Disease Mild Acute on Chronic Diastolic Heart Failure Bilateral Pleural Effusions Hyponatremia HTN DM Hyperlipidemia - lasix today - monitor urine output, creatinine - will order screening studies for ILD - trial of steroids - inhaled bronchodilators - O2 to keep Spo2 >90% - DVT prophylaxis - outpt PFTs, may need thoracic eval if no improvement Thank you for this consult Hector Davis MD
[2019-04-03] MEDS ORDERED: FUROSEMIDE 40 MG/4 ML INJECTABLE VIAL IVPUSH ONE (12:00)
[2019-04-03] MEDS ORDERED: oxyCODONE HCL 5 MG TABLET PO PRN ×2 (13:00→17:16)
--- NOTE | 2019-04-03 13:00 | PN ---
Physical Exam: SUBJECTIVE: Patient seen and examined at the bedside. reports pain on both knees, right ankle and all over. tramadol not working. also unable to sleep last night. denies chest pain or shortness of breath. OBJECTIVE: Patient is a 63 year old male with a significant past medical history of hypertension, hyperlipidemia, bph,diabetes type 2, arthritis, right ankle fracture with metal plates, bilateral knee surgery. He presents to the ED today with complaints of shortness of breath and unable to lay flat or walk more than 30 feet without severe dyspnea for 3 weeks but worsening prompting him to come back to the ED. Patient with a recent admission for dyspnea, productive cough, and orthopnea at [facility] from 02/24/19 to 02/26/2019. He had a thoracentesis done for right sided pleural effusion on 03/19/19 with 200cc of fluid removed as an outpatient. He states states compliance with all medications including the home lasix. Period Temp Pulse Resp BP Sys/Toth Pulse Ox Last 24 Hr 97.9 F-98.5 F 85-105 18-18 118-155/60-81 91-98 GENERAL: cooperative, well-appearing male. in no acute distress, tolerating room air, alert and oriented x 3 HEENT: Facial muscles intact. NECK: Normal range of motion, supple without lymphadenopathy, JVD, or masses. LUNGS: diminished at the bases, clear upper lobes. Symmetric chest rise. HEART: RRR. Normal S1, S2. No murmurs noted . ABDOMEN: Obese, soft. Normoactive bowel sounds MUSCULOSKELETAL: Normal range of motion at all joints. No bony deformities or tenderness. No CVA tenderness. UPPER EXTREMITIES: No peripheral edema. LOWER EXTREMITIES: +1 right lower ext edema s/p ankle surgery 4 months ago NEUROLOGICAL: Normal gait. PSYCHIATRIC: Cooperative. Good eye contact. Appropriate mood and affect. SKIN: Warm, dry, normal turgor, no rashes or lesions noted, normal capillary refill. Laboratory Results - last 24 hr 04/02/19 04/02/19 04/02/19 13:00 13:00 13:00 WBC 12.2 H RBC 4.62 Hgb 12.1 Hct 37.9 MCV 82.1 MCH 26.1 MCHC 31.8 L RDW 16.3 H Plt Count 327 D MPV 8.3 Absolute Neuts (auto) 9.0 H Neutrophils % 74.3 Neutrophils % (Manual) 76.0 Band Neutrophils % 0.0 Lymphocytes % 16.1 Lymphocytes % (Manual) 9.0 Monocytes % 6.2 Monocytes % (Manual) 9 Eosinophils % 2.7 Eosinophils % (Manual) 5.0 H D Basophils % 0.7 Basophils % (Manual) 0.0 Myelocytes % (Man) 1 D Promyelocytes % (Man) 0 Blast Cells % (Manual) 0 Nucleated RBC % 0 Metamyelocytes 0 Hypochromia 0 Platelet Estimate Normal Polychromasia 0 Poikilocytosis 0 Anisocytosis 0 Microcytosis 0 Macrocytosis 0 Sodium 138 Potassium 3.8 Chloride 104 Carbon Dioxide 24 Anion Gap 10 BUN 21.4 H Creatinine 1.4 H Est GFR (CKD-EPI)AfAm 62.40 Est GFR (CKD-EPI)NonAf 53.84 POC Glucometer Random Glucose 137 H Calcium 9.2 Magnesium Total Bilirubin 0.5 AST 20 ALT 32 Alkaline Phosphatase 110 Creatine Kinase 109 Troponin I < 0.02 B-Natriuretic Peptide 548.5 H Total Protein 7.5 Albumin 3.6 04/02/19 04/03/19 04/03/19 21:52 06:11 06:50 WBC 12.8 H RBC 4.38 Hgb 11.5 L Hct 36.2 MCV 82.6 MCH 26.3 MCHC 31.9 L RDW 16.2 H Plt Count 322 MPV 8.5 Absolute Neuts (auto) Neutrophils % Neutrophils % (Manual) Band Neutrophils % Lymphocytes % Lymphocytes % (Manual) Monocytes % Monocytes % (Manual) Eosinophils % Eosinophils % (Manual) Basophils % Basophils % (Manual) Myelocytes % (Man) Promyelocytes % (Man) Blast Cells % (Manual) Nucleated RBC % Metamyelocytes Hypochromia Platelet Estimate Polychromasia Poikilocytosis Anisocytosis Microcytosis Macrocytosis Sodium Potassium Chloride Carbon Dioxide Anion Gap BUN Creatinine Est GFR (CKD-EPI)AfAm Est GFR (CKD-EPI)NonAf POC Glucometer 385 332 Random Glucose Calcium Magnesium Total Bilirubin AST ALT Alkaline Phosphatase Creatine Kinase Troponin I B-Natriuretic Peptide Total Protein Albumin 04/03/19 04/03/19 06:50 11:06 WBC RBC Hgb Hct MCV MCH MCHC RDW Plt Count MPV Absolute Neuts (auto) Neutrophils % Neutrophils % (Manual) Band Neutrophils % Lymphocytes % Lymphocytes % (Manual) Monocytes % Monocytes % (Manual) Eosinophils % Eosinophils % (Manual) Basophils % Basophils % (Manual) Myelocytes % (Man) Promyelocytes % (Man) Blast Cells % (Manual) Nucleated RBC % Metamyelocytes Hypochromia Platelet Estimate Polychromasia Poikilocytosis Anisocytosis Microcytosis Macrocytosis Sodium 133 L Potassium 4.5 Chloride 100 Carbon Dioxide 23 Anion Gap 10 BUN 20.7 H Creatinine 1.3 Est GFR (CKD-EPI)AfAm 68.25 Est GFR (CKD-EPI)NonAf 58.89 POC Glucometer 364 Random Glucose 375 H Calcium 9.2 Magnesium 1.7 L Total Bilirubin 0.4 AST 14 L ALT 31 Alkaline Phosphatase 108 Creatine Kinase Troponin I B-Natriuretic Peptide Total Protein 7.6 Albumin 3.4 Active Medications Generic Name Dose Route Start Last Admin Trade Name Freq PRN Reason Stop Dose Admin Albuterol/Ipratropium 1 amp 04/03/19 14:00 Duoneb - NEB RTID RASHID Amlodipine Besylate 10 mg 04/03/19 10:00 04/03/19 09:16 Norvasc - PO 10 mg DAILY RASHID Administration Atenolol 50 mg 04/03/19 10:00 04/03/19 09:17 Tenormin - PO 50 mg DAILY RASHID Administration Fenofibric Acid 135 mg 04/03/19 10:00 04/03/19 11:29 Trilipix - PO 135 mg DAILY RASHID Administration Furosemide 40 mg 04/03/19 10:00 04/03/19 09:17 Lasix - PO 40 mg DAILY RASHID Administration Insulin Aspart 1 vial 04/02/19 22:00 04/03/19 11:16 Novolog Vial Sliding Scale - SQ 10 units ACHS RASHID Administration Protocol Insulin Detemir 5 units 04/03/19 22:00 Levemir Vial SQ HS RASHID Methylprednisolone Sodium Succinate 60 mg 04/03/19 11:45 Solu-Medrol - IVPUSH Q8H-IV RASHID Pantoprazole Sodium 40 mg 04/03/19 10:00 04/03/19 09:16 Protonix - PO 40 mg DAILY RASHID Administration Tramadol HCl 50 mg 04/02/19 18:07 04/03/19 10:28 Ultram - PO 50 mg Q8H PRN Administration PAIN LEVEL 7 - 10 Valsartan 320 mg 04/03/19 10:00 04/03/19 09:16 Diovan - PO 320 mg DAILY RASHID Administration Zolpidem Tartrate 5 mg 04/02/19 18:06 04/02/19 21:57 Ambien - PO 5 mg HS PRN Administration INSOMNIA ASSESSMENT/PLAN: Problem List - Problems (1) Shortness of breath on exertion Assessment/Plan: patient reports shortness of breath initially improved s/p thoracentesis, now again with dyspnea with physical exertion continue home lasix monitor intake/output bnp 548 supplemental oxygen as needed pulmonary consulted and following started on solumedrol taper for ILD Code(s): R06.02 - SHORTNESS OF BREATH (2) Bilateral pleural effusion Assessment/Plan: chest ct showed grounde glass opacities which have increased since prior CT, bilateral small pleural effusions, new on left also seen Had a CTA done on last admission, negative for PE, a partially loculated r pleural effusion w/ lower lobe atelectasis seen on last image. On Lasix 40 PO Given Levaquin 750mg x 1 in the ED, will continue levaquin 500mg dialy Echo 02/26/2019: LV normal, ef 60-65%, mild MR, mild TR, no pleural effusion Code(s): J90 - PLEURAL EFFUSION, NOT ELSEWHERE CLASSIFIED (3) Ground glass opacity present on imaging of lung Code(s): R91.8 - OTHER NONSPECIFIC ABNORMAL FINDING OF LUNG FIELD (4) Diabetes Assessment/Plan: hold home meds bgms with novolog ss a1c in a.m. add levemir for elevated bgms today Code(s): E11.9 - TYPE 2 DIABETES MELLITUS WITHOUT COMPLICATIONS (5) Interstitial lung disease Assessment/Plan: being ruled out for ILD by pulmonary on steriod taper Code(s): J84.9 - INTERSTITIAL PULMONARY DISEASE, UNSPECIFIED (6) Prophylactic measure Assessment/Plan: fen no ivf monitor electrolytes low salt diet, diabetic lovenox 40 daily Code(s): Z29.9 - ENCOUNTER FOR PROPHYLACTIC MEASURES, UNSPECIFIED Visit type - Emergency Visit Emergency Visit: Yes ED Registration Date: 04/02/19 Care time: The patient presented to the Emergency Department on the above date and was hospitalized for further evaluation of their emergent condition. - New Patient This patient is new to me today: No - Critical Care Critical Care patient: No - Discharge Referral Referred to [facility] Med [facility].C.: No
[2019-04-03] MEDS: methylPREDNISolone NA SUCC 40 MG/1 ML VIAL IVPUSH SCH ×2 (13:31→17:34)
[2019-04-03] MEDS: ALBUTEROL SO4 2.5/IPRATROPIUM 0.5 INH SOL 3 ML VIAL.NEB. NEB SCH ×2 (16:39→20:05)
[2019-04-03] MEDS ORDERED: oxyCODONE HCL 5 MG TABLET PO ONE (17:38)
[2019-04-03] MEDS: ENOXAPARIN NA (PORCINE) 40 MG/0.4 ML DISP.SYRIN SQ SCH (21:39)
[2019-04-03] MEDS: ZOLPIDEM TARTRATE 5 MG TABLET PO PRN (21:39)
[2019-04-03] MEDS ORDERED: INSULIN (LEVEMIR) 100 UNITS/ML UNITS SQ SCH ×2 (22:00)
[2019-04-03] MEDS ORDERED: INSULIN SLIDING SCALE (NOVOLOG) 1 VIAL SQ SCH (22:00)
[2019-04-03] MEDS ORDERED: INSULIN (NOVOLOG) ASPART 100 UNITS/ML 10ML VIAL SQ ONE (22:01)
[2019-04-03] MEDS ORDERED: diphenhydrAMINE HCL 25 MG CAPSULE (FP) PO ONE (22:28)
[2019-04-04] MEDS: methylPREDNISolone NA SUCC 40 MG/1 ML VIAL IVPUSH SCH ×3 (01:24→17:40)
[2019-04-04] MEDS ORDERED: INSULIN (NOVOLOG) ASPART 100 UNITS/ML 10ML VIAL SQ ONE ×2 (06:24→22:06)
[2019-04-04] MEDS: INSULIN SLIDING SCALE (NOVOLOG) 1 VIAL SQ SCH ×4 (06:42→22:04)
[2019-04-04] MEDS: ALBUTEROL SO4 2.5/IPRATROPIUM 0.5 INH SOL 3 ML VIAL.NEB. NEB SCH ×3 (07:35→20:41)
[2019-04-04] MEDS ORDERED: INSULIN (LEVEMIR) 100 UNITS/ML UNITS SQ ONE ×3 (08:17→08:37)
[2019-04-04] MEDS ORDERED: PT OWN MED DRAWER 7, Y5N ONE (08:56)
[2019-04-04] MEDS: ENOXAPARIN NA (PORCINE) 40 MG/0.4 ML DISP.SYRIN SQ SCH (08:59)
[2019-04-04] MEDS: FUROSEMIDE 40 MG TABLET (FP) PO SCH (09:01)
[2019-04-04] MEDS: FENOFIBRIC ACID 135 MG CAP PO SCH (09:01)
[2019-04-04] MEDS: ATENOLOL 50 MG TABLET (FP) PO SCH (09:01)
[2019-04-04] MEDS: PANTOPRAZOLE 40 MG TABLET (FP) PO SCH (09:01)
[2019-04-04] MEDS: amLODIPine BESYLATE 10 MG TABLET (FP) PO SCH (09:01)
[2019-04-04] MEDS: VALSARTAN 160 MG TABLET (UD) PO SCH (09:01)
--- NOTE | 2019-04-04 11:03 | PN ---
Progress Note (short form) - Note Progress Note: PULMONARY States breathing is improving. Ambulated down hallways with less dyspnea. Vital Signs Period Temp Pulse Resp BP Sys/Toth Pulse Ox Last 24 Hr 97.2 F-98.6 F 78-93 19-20 128-142/66-72 91 Gen: NAD at rest Heart: RRR Lung: decreased breath sounds at the bases Abd: soft, nontender Ext: distal edema CBC, BMP 04/03/19 06:50 04/03/19 06:50 Active Medications Albuterol/Ipratropium (Duoneb -) 1 amp NEB RTID [facility] Last Admin: 04/04/19 07:35 Dose: 1 amp Amlodipine Besylate (Norvasc -) 10 mg PO DAILY [facility] Last Admin: 04/04/19 09:01 Dose: 10 mg Atenolol (Tenormin -) 50 mg PO DAILY [facility] Last Admin: 04/04/19 09:01 Dose: 50 mg Diphenhydramine HCl (Benadryl -) 50 mg PO HS PRN PRN Reason: INSOMNIA Enoxaparin Sodium (Lovenox -) 40 mg SQ DAILY [facility] Last Admin: 04/04/19 08:59 Dose: 40 mg Fenofibric Acid (Trilipix -) 135 mg PO DAILY [facility] Last Admin: 04/04/19 09:01 Dose: 135 mg Furosemide (Lasix -) 40 mg PO DAILY [facility] Last Admin: 04/04/19 09:01 Dose: 40 mg Insulin Aspart (Novolog Vial Sliding Scale -) 1 vial SQ [facility]; Protocol Insulin Detemir (Levemir Vial) 20 units SQ HS [facility] Last Admin: 04/03/19 21:40 Dose: 20 unit Methylprednisolone Sodium Succinate (Solu-Medrol -) 60 mg IVPUSH Q8H-IV [facility] Last Admin: 04/04/19 09:00 Dose: 60 mg Oxycodone HCl (Roxicodone -) 7.5 mg PO Q8H PRN PRN Reason: PAIN LEVEL 7 - 10 Last Admin: 04/04/19 08:40 Dose: 7.5 mg Pantoprazole Sodium (Protonix -) 40 mg PO DAILY [facility] Last Admin: 04/04/19 09:01 Dose: 40 mg Valsartan (Diovan -) 320 mg PO DAILY [facility] Last Admin: 04/04/19 09:01 Dose: 320 mg A/P r/o Interstitial Lung Disease Mild Acute on Chronic Diastolic Heart Failure Bilateral Pleural Effusions Hyponatremia HTN DM Hyperlipidemia - continue lasix today - monitor urine output, creatinine - f/u serologies - trial of steroids, can taper in AM if continues to improve - inhaled bronchodilators - O2 to keep Spo2 >90% - DVT prophylaxis - outpt PFTs and CT chest, may need thoracic eval if no improvement Problem List - Problems (1) Bilateral pleural effusion Code(s): J90 - PLEURAL EFFUSION, NOT ELSEWHERE CLASSIFIED (2) Ground glass opacity present on imaging of lung Code(s): R91.8 - OTHER NONSPECIFIC ABNORMAL FINDING OF LUNG FIELD (3) Shortness of breath Code(s): R06.02 - SHORTNESS OF BREATH
[2019-04-04 11:56] LABS: HEMATOCRIT 37.3 % (35.4-49); HEMOGLOBIN 11.8 GM/dL (11.7-16.9); LYMPH % 3.5 % (8-40); MCH 26.3 pg (25.7-33.7); MCHC 31.7 g/dl (32.0-35.9); MEAN PLT VOLUME 8.6 fl (7.5-11.1); MONO % 3.7 % (3.8-10.2); NEUT % 92.8 % (42.8-82.8); PLATELET COUNT 339 K/MM3 (134-434); RBC 4.49 M/mm3 (4.00-5.60); RDW 16.7 % (11.9-15.9); WHITE BLOOD COUNT 19.5 K/mm3 (4.0-10.0)
[2019-04-04 12:49] LABS: ALBUMIN 3.3 g/dl (3.4-5.0); BILIRUBIN,TOTAL 0.3 mg/dL (0.2-1); BLOOD UREA NITROGEN 41.9 mg/dL (7-18); CALCIUM 8.9 mg/dL (8.5-10.1); CREATININE 1.6 mg/dL (0.55-1.3); MAGNESIUM 1.9 mg/dL (1.8-2.4); POTASSIUM 3.9 mmol/L (3.5-5.1); TOT PROT 7.6 g/dl (6.4-8.2)
[2019-04-04] MEDS ORDERED: FUROSEMIDE 40 MG/4 ML INJECTABLE VIAL IVPUSH ONE (14:00)
[2019-04-04 14:35] LABS: ANISOCYTOSIS 0; MACROCYTOSIS 0; PLATELET ESTIMATE NORMAL
[2019-04-04] MEDS: LORATADINE 10 MG TABLET PO SCH (15:36)
--- NOTE | 2019-04-04 16:59 | PN ---
Physical Exam: SUBJECTIVE: Patient seen and examined at the bedside. reports he is having pain on both knees and right ankle. OBJECTIVE: Patient is a 63 year old male with a significant past medical history of hypertension, hyperlipidemia, bph,diabetes type 2, arthritis, right ankle fracture with metal plates, bilateral knee surgery. He presents to the ED with complaints of shortness of breath and unable to lay flat or walk more than 30 feet without severe dyspnea for 3 weeks. Patient with a recent admission for dyspnea, productive cough, and orthopnea at [facility] from 02/24/19 to 02/26/2019. He had a thoracentesis done for right sided pleural effusion on 03/19/19 with 200cc of fluid removed as an outpatient. He states states compliance with all medications including the home lasix. Vital Signs Period Temp Pulse Resp BP Sys/Toth Pulse Ox Last 24 Hr 97.2 F-98.6 F 78-97 19-20 126-142/64-74 91-93 GENERAL: cooperative, well-appearing male. in no acute distress, tolerating room air, alert and oriented x 3 HEENT: Facial muscles intact. NECK: Normal range of motion, supple without lymphadenopathy, JVD, or masses. LUNGS: diminished at the bases, clear upper lobes. Symmetric chest rise. HEART: RRR. Normal S1, S2. No murmurs noted . ABDOMEN: Obese, soft. Normoactive bowel sounds MUSCULOSKELETAL: Normal range of motion at all joints. No bony deformities or tenderness. No CVA tenderness. UPPER EXTREMITIES: No peripheral edema. LOWER EXTREMITIES: +1 right lower ext edema s/p ankle surgery 4 months ago with metal plates. NEUROLOGICAL: Normal gait. PSYCHIATRIC: Cooperative. Good eye contact. Appropriate mood and affect. SKIN: Warm, dry, normal turgor, no rashes or lesions noted, normal capillary refill. Laboratory Results - last 24 hr 04/03/19 04/04/19 04/04/19 21:44 05:52 11:24 WBC RBC Hgb Hct MCV MCH MCHC RDW Plt Count MPV Absolute Neuts (auto) Neutrophils % Neutrophils % (Manual) Band Neutrophils % Lymphocytes % Lymphocytes % (Manual) Monocytes % Monocytes % (Manual) Eosinophils % Eosinophils % (Manual) Basophils % Basophils % (Manual) Myelocytes % (Man) Promyelocytes % (Man) Blast Cells % (Manual) Nucleated RBC % Metamyelocytes Hypochromia Platelet Estimate Platelet Comment Polychromasia Poikilocytosis Anisocytosis Microcytosis Macrocytosis Sodium Potassium Chloride Carbon Dioxide Anion Gap BUN Creatinine Est GFR (CKD-EPI)AfAm Est GFR (CKD-EPI)NonAf POC Glucometer 538 563 514 Random Glucose Hemoglobin A1c % Calcium Magnesium Total Bilirubin AST ALT Alkaline Phosphatase Total Protein Albumin 04/04/19 04/04/19 04/04/19 11:25 11:25 11:25 WBC 19.5 H RBC 4.49 Hgb 11.8 Hct 37.3 MCV 83.0 MCH 26.3 MCHC 31.7 L RDW 16.7 H Plt Count 339 MPV 8.6 Absolute Neuts (auto) 18.0 H Neutrophils % 92.8 H D Neutrophils % (Manual) 96.8 H Band Neutrophils % 0.0 Lymphocytes % 3.5 L D Lymphocytes % (Manual) 2.1 L D Monocytes % 3.7 L Monocytes % (Manual) 1 L D Eosinophils % 0.0 D Eosinophils % (Manual) 0.0 D Basophils % 0.0 Basophils % (Manual) 0.0 Myelocytes % (Man) 0 D Promyelocytes % (Man) 0 Blast Cells % (Manual) 0 Nucleated RBC % 0 Metamyelocytes 0 Hypochromia 0 Platelet Estimate Normal Platelet Comment Present Polychromasia 1+ Poikilocytosis 0 Anisocytosis 0 Microcytosis 0 Macrocytosis 0 Sodium 133 L Potassium 3.9 Chloride 101 Carbon Dioxide 22 Anion Gap 11 BUN 41.9 H Creatinine 1.6 H Est GFR (CKD-EPI)AfAm 53.10 Est GFR (CKD-EPI)NonAf 45.82 POC Glucometer Random Glucose 507 H* Hemoglobin A1c % 10.2 H Calcium 8.9 Magnesium 1.9 Total Bilirubin 0.3 AST 23 ALT 47 Alkaline Phosphatase 118 H Total Protein 7.6 Albumin 3.3 L 04/04/19 16:17 WBC RBC Hgb Hct MCV MCH MCHC RDW Plt Count MPV Absolute Neuts (auto) Neutrophils % Neutrophils % (Manual) Band Neutrophils % Lymphocytes % Lymphocytes % (Manual) Monocytes % Monocytes % (Manual) Eosinophils % Eosinophils % (Manual) Basophils % Basophils % (Manual) Myelocytes % (Man) Promyelocytes % (Man) Blast Cells % (Manual) Nucleated RBC % Metamyelocytes Hypochromia Platelet Estimate Platelet Comment Polychromasia Poikilocytosis Anisocytosis Microcytosis Macrocytosis Sodium Potassium Chloride Carbon Dioxide Anion Gap BUN Creatinine Est GFR (CKD-EPI)AfAm Est GFR (CKD-EPI)NonAf POC Glucometer 392 Random Glucose Hemoglobin A1c % Calcium Magnesium Total Bilirubin AST ALT Alkaline Phosphatase Total Protein Albumin Active Medications Generic Name Dose Route Start Last Admin Trade Name Freq PRN Reason Stop Dose Admin Albuterol/Ipratropium 1 amp 04/03/19 14:00 04/04/19 13:10 Duoneb - NEB 1 amp RTID RASHID Administration Amlodipine Besylate 10 mg 04/03/19 10:00 04/04/19 09:01 Norvasc - PO 10 mg DAILY RASHID Administration Atenolol 50 mg 04/03/19 10:00 04/04/19 09:01 Tenormin - PO 50 mg DAILY RASHID Administration Diphenhydramine HCl 50 mg 04/04/19 22:28 Benadryl - PO HS PRN INSOMNIA Enoxaparin Sodium 40 mg 04/03/19 21:00 04/04/19 08:59 Lovenox - SQ 40 mg DAILY RASHID Administration Fenofibric Acid 135 mg 04/03/19 10:00 04/04/19 09:01 Trilipix - PO 135 mg DAILY RASHID Administration Furosemide 40 mg 04/03/19 10:00 04/04/19 09:01 Lasix - PO 40 mg DAILY RASHID Administration Levofloxacin 500 mg in 100 mls @ 100 mls/hr 04/04/19 15:25 04/04/19 15:42 Levaquin 500 Mg Premixed Ivpb - IVPB 100 mls/hr DAILY RASHID Administration Protocol Insulin Aspart 1 vial 04/04/19 08:22 04/04/19 16:27 Novolog Vial Sliding Scale - SQ 16 units ACHS RASHID Administration Protocol Loratadine 10 mg 04/04/19 15:30 04/04/19 15:36 Claritin - PO 10 mg DAILY RASHID Administration Methylprednisolone Sodium Succinate 60 mg 04/03/19 11:45 04/04/19 09:00 Solu-Medrol - IVPUSH 60 mg Q8H-IV RASHID Administration Oxycodone HCl 7.5 mg 04/04/19 15:26 Roxicodone - PO Q6H PRN PAIN LEVEL 7 - 10 Pantoprazole Sodium 40 mg 04/03/19 10:00 04/04/19 09:01 Protonix - PO 40 mg DAILY RASHID Administration Valsartan 320 mg 04/03/19 10:00 04/04/19 09:01 Diovan - PO 320 mg DAILY RASHID Administration Zolpidem Tartrate 10 mg 04/04/19 14:42 Ambien - PO HS PRN INSOMNIA ASSESSMENT/PLAN: Problem List - Problems (1) Shortness of breath on exertion Assessment/Plan: patient reports shortness of breath initially improved s/p thoracentesis, now again with dyspnea with physical exertion continue home lasix monitor intake/output bnp 548 supplemental oxygen as needed pulmonary consulted and following started on solumedrol taper for ILD tolerating room air, lungs clear to auscultation. Code(s): R06.02 - SHORTNESS OF BREATH (2) Bilateral pleural effusion Assessment/Plan: chest ct showed ground glass opacities which have increased since prior CT, bilateral small pleural effusions, new on left also seen Had a CTA done on last admission, negative for PE, a partially loculated r pleural effusion w/ lower lobe atelectasis seen on last image. On levaquin 500 IV daily. Echo 02/26/2019: LV normal, ef 60-65%, mild MR, mild TR, no pleural effusion Code(s): J90 - PLEURAL EFFUSION, NOT ELSEWHERE CLASSIFIED (3) Ground glass opacity present on imaging of lung Code(s): R91.8 - OTHER NONSPECIFIC ABNORMAL FINDING OF LUNG FIELD (4) Diabetes Assessment/Plan: hold home meds bgms with novolog ss a1c @ 10% add levemir 20 bid for elevated bgms today Code(s): E11.9 - TYPE 2 DIABETES MELLITUS WITHOUT COMPLICATIONS (5) Interstitial lung disease Assessment/Plan: being ruled out for ILD by pulmonary on steriod taper Code(s): J84.9 - INTERSTITIAL PULMONARY DISEASE, UNSPECIFIED (6) Prophylactic measure Assessment/Plan: fen no ivf monitor electrolytes low salt diet, diabetic lovenox 40 daily Code(s): Z29.9 - ENCOUNTER FOR PROPHYLACTIC MEASURES, UNSPECIFIED Visit type - Emergency Visit Emergency Visit: Yes ED Registration Date: 04/02/19 Care time: The patient presented to the Emergency Department on the above date and was hospitalized for further evaluation of their emergent condition. - New Patient This patient is new to me today: No - Critical Care Critical Care patient: No - Discharge Referral Referred to [facility] No
[2019-04-04] MEDS: oxyCODONE HCL 5 MG TABLET PO PRN ×2 (17:40→23:33)
[2019-04-04] MEDS: SIMETHICONE 80 MG TAB.CHEW (FP) PO PRN (21:56)
[2019-04-04] MEDS: DOCUSATE SODIUM 100 MG CAPSULE (FP) PO SCH (21:56)
[2019-04-04] MEDS: SENNOSIDES 8.6MG TABLET (FP) PO SCH (21:56)
[2019-04-04] MEDS ORDERED: INSULIN (LEVEMIR) 100 UNITS/ML UNITS SQ SCH (22:00)
[2019-04-04] MEDS: ZOLPIDEM TARTRATE 5 MG TABLET PO PRN (22:15)
[2019-04-05] MEDS: methylPREDNISolone NA SUCC 40 MG/1 ML VIAL IVPUSH SCH ×3 (01:58→17:34)
[2019-04-05] MEDS: diphenhydrAMINE HCL 25 MG CAPSULE (FP) PO PRN (02:09)
[2019-04-05] MEDS: DOCUSATE SODIUM 100 MG CAPSULE (FP) PO SCH ×3 (06:08→22:05)
[2019-04-05] MEDS: INSULIN SLIDING SCALE (NOVOLOG) 1 VIAL SQ SCH ×4 (06:09→22:08)
[2019-04-05] MEDS ORDERED: INSULIN (LEVEMIR) 100 UNITS/ML UNITS SQ SCH (07:19)
[2019-04-05 07:53] LABS: BASO % 0.1 % (0-2.0); HEMATOCRIT 35.5 % (35.4-49); HEMOGLOBIN 11.3 GM/dL (11.7-16.9); LYMPH % 5.1 % (8-40); MCH 26.1 pg (25.7-33.7); MCHC 31.7 g/dl (32.0-35.9); MEAN CELL VOLUME 82.2 fl (80-96); MEAN PLT VOLUME 8.5 fl (7.5-11.1); MONO % 3.4 % (3.8-10.2); NEUT % 91.4 % (42.8-82.8); PLATELET COUNT 281 K/MM3 (134-434); RBC 4.32 M/mm3 (4.00-5.60); RDW 16.3 % (11.9-15.9); WHITE BLOOD COUNT 14.9 K/mm3 (4.0-10.0)
[2019-04-05 08:29] LABS: ALBUMIN 3.2 g/dl (3.4-5.0); BILIRUBIN,TOTAL 0.4 mg/dL (0.2-1); BLOOD UREA NITROGEN 49.2 mg/dL (7-18); CALCIUM 8.8 mg/dL (8.5-10.1); CREATININE 1.6 mg/dL (0.55-1.3); PHOSPHOROUS 3.8 mg/dL (2.5-4.9); POTASSIUM 4.4 mmol/L (3.5-5.1); TOT PROT 7.2 g/dl (6.4-8.2)
[2019-04-05] MEDS: ALBUTEROL SO4 2.5/IPRATROPIUM 0.5 INH SOL 3 ML VIAL.NEB. NEB SCH ×3 (08:48→20:15)
[2019-04-05] MEDS: VALSARTAN 160 MG TABLET (UD) PO SCH (09:11)
[2019-04-05] MEDS: PANTOPRAZOLE 40 MG TABLET (FP) PO SCH (09:11)
[2019-04-05] MEDS: FUROSEMIDE 40 MG TABLET (FP) PO SCH (09:11)
[2019-04-05] MEDS: LORATADINE 10 MG TABLET PO SCH (09:12)
[2019-04-05] MEDS: amLODIPine BESYLATE 10 MG TABLET (FP) PO SCH (09:12)
[2019-04-05] MEDS: ATENOLOL 50 MG TABLET (FP) PO SCH (09:12)
[2019-04-05] MEDS: ENOXAPARIN NA (PORCINE) 40 MG/0.4 ML DISP.SYRIN SQ SCH (09:12)
[2019-04-05] MEDS: oxyCODONE HCL 5 MG TABLET PO PRN ×3 (09:15→22:01)
[2019-04-05] MEDS: POLYETHYLENE GLYCOL 3350 119 GM BTL PO SCH (09:15)
--- NOTE | 2019-04-05 10:23 | CON.GU ---
Consult - History of Present Illness History of Present Illness: 63 yo male admitted with pneumonia. Pt has hypogonadism and managed with weekly Testosterone inj in office by Dr Leiva. Interested in receiving Testosterone inj while in house. No voiding complaints - Past Medical History Cardio/Vascular: Yes: HTN, Hyperlipdemia Endocrine: Yes: Diabetes Mellitus - Alcohol/Substance Use Hx Alcohol Use: No - Smoking History Smoking history: Never smoked Have you smoked in the past 12 months: No Home Medications - Allergies Allergies/Adverse Reactions: Allergies Allergy/AdvReac Type Severity Reaction Status Date / Time No Known Allergies Allergy Verified 04/02/19 10:39 - Home Medications Home Medications: Ambulatory Orders Atenolol [Tenormin -] 50 mg PO DAILY 02/24/19 Fenofibrate,Micronized [Fenofibrate] 200 mg PO DAILY 02/24/19 Glipizide [Glipizide ER] 5 mg PO DAILY 02/24/19 Ibuprofen 600 mg PO TID 02/24/19 Omeprazole 40 mg PO DAILY 02/24/19 Amlodipine Besylate [Norvasc -] 10 mg PO DAILY #30 tablet 02/26/19 Furosemide [Lasix] 40 mg PO DAILY #5 tablet 02/26/19 Valsartan [Diovan] 320 mg PO DAILY #60 tablet 02/26/19 Physical Exam- Vital Signs: Vital Signs Temperature 97.5 F L 04/05/19 02:56 Pulse Rate 86 04/05/19 02:56 Respiratory Rate 20 04/05/19 08:30 Blood Pressure 145/67 04/05/19 02:56 O2 Sat by Pulse Oximetry (%) 93 L 04/05/19 08:30 Kidneys: Yes: WNL Labs: CBC, BMP 04/05/19 06:10 04/05/19 06:10 Problem List - Problems (1) Hypogonadism in male Assessment/Plan: Testosterone not available on fornulary, will have to wait until outpt again to resume T inj Code(s): E29.1 - TESTICULAR HYPOFUNCTION
[2019-04-05] MEDS: FENOFIBRIC ACID 135 MG CAP PO SCH (10:40)
--- NOTE | 2019-04-05 10:41 | PN ---
Progress Note (short form) - Note Progress Note: PULMONARY States breathing is improving. +cough with green sputum. No fevers. Vital Signs Period Temp Pulse Resp BP Sys/Toth Pulse Ox Last 24 Hr 97.5 F-97.9 F 79-93 20-20 126-147/64-84 93-93 Gen: NAD at rest Heart: RRR Lung: decreased breath sounds at the bases Abd: soft, nontender Ext: distal edema CBC, BMP 04/05/19 06:10 04/05/19 06:10 Active Medications Albuterol/Ipratropium (Duoneb -) 1 amp NEB RTID [facility] Last Admin: 04/05/19 08:48 Dose: 1 amp Amlodipine Besylate (Norvasc -) 10 mg PO DAILY [facility] Last Admin: 04/05/19 09:12 Dose: 10 mg Atenolol (Tenormin -) 50 mg PO DAILY [facility] Last Admin: 04/05/19 09:12 Dose: 50 mg Diphenhydramine HCl (Benadryl -) 50 mg PO HS PRN PRN Reason: INSOMNIA Last Admin: 04/05/19 02:09 Dose: 50 mg Docusate Sodium (Colace -) 100 mg PO TID [facility] Last Admin: 04/05/19 06:08 Dose: 100 mg Enoxaparin Sodium (Lovenox -) 40 mg SQ DAILY [facility] Last Admin: 04/05/19 09:12 Dose: 40 mg Fenofibric Acid (Trilipix -) 135 mg PO DAILY [facility] Last Admin: 04/04/19 09:01 Dose: 135 mg Furosemide (Lasix -) 40 mg PO DAILY [facility] Last Admin: 04/05/19 09:11 Dose: 40 mg Levofloxacin (Levaquin 500 Mg Premixed Ivpb -) 500 mg in 100 mls @ 100 mls/hr IVPB DAILY [facility]; Protocol Last Admin: 04/05/19 09:13 Dose: 100 mls/hr Insulin Aspart (Novolog Vial Sliding Scale -) 1 vial SQ ACHS [facility]; Protocol Last Admin: 04/05/19 06:09 Dose: 4 units Insulin Detemir (Levemir Vial) 25 units SQ BID [facility] Last Admin: 04/05/19 09:14 Dose: 25 units Loratadine (Claritin -) 10 mg PO DAILY [facility] Last Admin: 04/05/19 09:12 Dose: 10 mg Methylprednisolone Sodium Succinate (Solu-Medrol -) 60 mg IVPUSH Q8H-IV [facility] Last Admin: 04/05/19 09:10 Dose: 60 mg Oxycodone HCl (Roxicodone -) 7.5 mg PO Q6H PRN PRN Reason: PAIN LEVEL 7 - 10 Last Admin: 04/04/19 23:33 Dose: 7.5 mg Pantoprazole Sodium (Protonix -) 40 mg PO DAILY [facility] Last Admin: 04/05/19 09:11 Dose: 40 mg Polyethylene Glycol (Miralax (For Daily Use) -) 17 gm PO DAILY [facility] Last Admin: 04/05/19 09:15 Dose: Not Given Senna (Senna -) 2 tab PO HS [facility] Last Admin: 04/04/19 21:56 Dose: 2 tab Simethicone (Mylicon -) 80 mg PO Q4H PRN PRN Reason: DYSPEPSIA Last Admin: 04/04/19 21:56 Dose: 80 mg Valsartan (Diovan -) 320 mg PO DAILY [facility] Last Admin: 04/05/19 09:11 Dose: 320 mg Zolpidem Tartrate (Ambien -) 10 mg PO HS PRN PRN Reason: INSOMNIA Last Admin: 04/04/19 22:15 Dose: 10 mg A/P r/o Interstitial Lung Disease Mild Acute on Chronic Diastolic Heart Failure Bilateral Pleural Effusions Acute Bronchitis Hyponatremia HTN DM Hyperlipidemia - continue lasix today - monitor urine output, creatinine - f/u serologies - will decrease medrol to q8h - if continues to improve, can likely change to PO prednisone 40mg daily and continue as outpt - inhaled bronchodilators - short course of antibiotics - O2 to keep Spo2 >90% - DVT prophylaxis - close outpt f/u - outpt PFTs and CT chest, may need thoracic eval if no improvement Problem List - Problems (1) Bilateral pleural effusion Code(s): J90 - PLEURAL EFFUSION, NOT ELSEWHERE CLASSIFIED (2) Ground glass opacity present on imaging of lung Code(s): R91.8 - OTHER NONSPECIFIC ABNORMAL FINDING OF LUNG FIELD (3) Shortness of breath Code(s): R06.02 - SHORTNESS OF BREATH
[2019-04-05 11:06] LABS: ANISOCYTOSIS 0; MACROCYTOSIS 0; PLATELET ESTIMATE NORMAL
[2019-04-05] MEDS: SIMETHICONE 80 MG TAB.CHEW (FP) PO PRN ×3 (13:19→22:03)
--- NOTE | 2019-04-05 14:05 | PN ---
Physical Exam: SUBJECTIVE: Patient seen and examined at the bedside. coughing up some green sputum today. denies shortness of breath. OBJECTIVE: Patient is a 63 year old male with a significant past medical history of hypertension, hyperlipidemia, bph,diabetes type 2, arthritis, right ankle fracture with metal plates, bilateral knee surgery. He presents to the ED with complaints of shortness of breath and unable to lay flat or walk more than 30 feet without severe dyspnea for 3 weeks. Patient with a recent admission for dyspnea, productive cough, and orthopnea at [facility] from 02/24/19 to 02/26/2019. He had a thoracentesis done for right sided pleural effusion on 03/19/19 with 200cc of fluid removed as an outpatient. He states states compliance with all medications including the home lasix. Vital Signs Period Temp Pulse Resp BP Sys/Toth Pulse Ox Last 24 Hr 97.5 F-98.7 F 77-98 20-20 126-147/64-84 93-93 GENERAL: cooperative, well-appearing male. in no acute distress, tolerating room air, alert and oriented x 3 HEENT: Facial muscles intact. NECK: Normal range of motion, supple without lymphadenopathy, JVD, or masses. LUNGS: diminished at the bases, clear upper lobes. Symmetric chest rise. HEART: RRR. Normal S1, S2. No murmurs noted . ABDOMEN: Obese, soft. Normoactive bowel sounds MUSCULOSKELETAL: Normal range of motion at all joints. No bony deformities or tenderness. No CVA tenderness. UPPER EXTREMITIES: No peripheral edema. LOWER EXTREMITIES: +1 right lower ext edema s/p ankle surgery 4 months ago with metal plates. NEUROLOGICAL: Normal gait. PSYCHIATRIC: Cooperative. Good eye contact. Appropriate mood and affect. SKIN: Warm, dry, normal turgor, no rashes or lesions noted, normal capillary refill. Laboratory Results - last 24 hr 04/04/19 04/04/19 04/04/19 11:25 16:17 21:59 WBC RBC Hgb Hct MCV MCH MCHC RDW Plt Count MPV Absolute Neuts (auto) Neutrophils % Neutrophils % (Manual) 96.8 H Band Neutrophils % 0.0 Lymphocytes % Lymphocytes % (Manual) 2.1 L D Monocytes % Monocytes % (Manual) 1 L D Eosinophils % Eosinophils % (Manual) 0.0 D Basophils % Basophils % (Manual) 0.0 Myelocytes % (Man) 0 D Promyelocytes % (Man) 0 Blast Cells % (Manual) 0 Nucleated RBC % 0 Metamyelocytes 0 Hypochromia 0 Platelet Estimate Normal Platelet Comment Present Polychromasia 1+ Poikilocytosis 0 Anisocytosis 0 Microcytosis 0 Macrocytosis 0 Sodium Potassium Chloride Carbon Dioxide Anion Gap BUN Creatinine Est GFR (CKD-EPI)AfAm Est GFR (CKD-EPI)NonAf POC Glucometer 392 550 Random Glucose Calcium Phosphorus Magnesium Total Bilirubin AST ALT Alkaline Phosphatase Total Protein Albumin 04/05/19 04/05/19 04/05/19 05:49 06:10 06:10 WBC 14.9 H RBC 4.32 Hgb 11.3 L Hct 35.5 MCV 82.2 MCH 26.1 MCHC 31.7 L RDW 16.3 H Plt Count 281 MPV 8.5 Absolute Neuts (auto) 13.6 H Neutrophils % 91.4 H Neutrophils % (Manual) 92.0 H Band Neutrophils % 3.0 Lymphocytes % 5.1 L D Lymphocytes % (Manual) 4.0 L D Monocytes % 3.4 L Monocytes % (Manual) 1 L Eosinophils % 0.0 Eosinophils % (Manual) 0.0 Basophils % 0.1 D Basophils % (Manual) 0.0 Myelocytes % (Man) 0 Promyelocytes % (Man) 0 Blast Cells % (Manual) 0 Nucleated RBC % 1 H Metamyelocytes 0 Hypochromia 0 Platelet Estimate Normal Platelet Comment Present Polychromasia 0 Poikilocytosis 0 Anisocytosis 0 Microcytosis 0 Macrocytosis 0 Sodium 135 L Potassium 4.4 Chloride 99 Carbon Dioxide 27 Anion Gap 9 BUN 49.2 H Creatinine 1.6 H Est GFR (CKD-EPI)AfAm 53.10 Est GFR (CKD-EPI)NonAf 45.82 POC Glucometer 363 Random Glucose 358 H Calcium 8.8 Phosphorus 3.8 Magnesium 2.0 Total Bilirubin 0.4 AST 14 L ALT 38 Alkaline Phosphatase 103 Total Protein 7.2 Albumin 3.2 L 04/05/19 11:20 WBC RBC Hgb Hct MCV MCH MCHC RDW Plt Count MPV Absolute Neuts (auto) Neutrophils % Neutrophils % (Manual) Band Neutrophils % Lymphocytes % Lymphocytes % (Manual) Monocytes % Monocytes % (Manual) Eosinophils % Eosinophils % (Manual) Basophils % Basophils % (Manual) Myelocytes % (Man) Promyelocytes % (Man) Blast Cells % (Manual) Nucleated RBC % Metamyelocytes Hypochromia Platelet Estimate Platelet Comment Polychromasia Poikilocytosis Anisocytosis Microcytosis Macrocytosis Sodium Potassium Chloride Carbon Dioxide Anion Gap BUN Creatinine Est GFR (CKD-EPI)AfAm Est GFR (CKD-EPI)NonAf POC Glucometer 407 Random Glucose Calcium Phosphorus Magnesium Total Bilirubin AST ALT Alkaline Phosphatase Total Protein Albumin Active Medications Generic Name Dose Route Start Last Admin Trade Name Freq PRN Reason Stop Dose Admin Albuterol/Ipratropium 1 amp 04/03/19 14:00 04/05/19 08:48 Duoneb - NEB 1 amp RTID [facility] Administration Amlodipine Besylate 10 mg 04/03/19 10:00 04/05/19 09:12 Norvasc - PO 10 mg DAILY [facility] Administration Atenolol 50 mg 04/03/19 10:00 04/05/19 09:12 Tenormin - PO 50 mg DAILY [facility] Administration Diphenhydramine HCl 50 mg 04/04/19 22:28 04/05/19 02:09 Benadryl - PO 50 mg HS PRN Administration INSOMNIA Docusate Sodium 100 mg 04/04/19 22:00 04/05/19 13:20 Colace - PO Not Given TID [facility] Enoxaparin Sodium 40 mg 04/03/19 21:00 04/05/19 09:12 Lovenox - SQ 40 mg DAILY [facility] Administration Fenofibric Acid 135 mg 04/03/19 10:00 04/05/19 10:40 Trilipix - PO 135 mg DAILY [facility] Administration Furosemide 40 mg 04/03/19 10:00 04/05/19 09:11 Lasix - PO 40 mg DAILY [facility] Administration Levofloxacin 500 mg in 100 mls @ 100 mls/hr 04/04/19 15:25 04/05/19 09:13 Levaquin 500 Mg Premixed Ivpb - IVPB 100 mls/hr DAILY [facility] Administration Protocol Insulin Aspart 1 vial 04/04/19 08:22 04/05/19 11:29 Novolog Vial Sliding Scale - SQ 18 units ACHS [facility] Administration Protocol Insulin Detemir 25 units 04/05/19 07:19 04/05/19 09:14 Levemir Vial SQ 25 units BID [facility] Administration Loratadine 10 mg 04/04/19 15:30 04/05/19 09:12 Claritin - PO 10 mg DAILY [facility] Administration Methylprednisolone Sodium Succinate 40 mg 04/05/19 10:41 Solu-Medrol - IVPUSH Q8H-IV [facility] Oxycodone HCl 7.5 mg 04/04/19 15:26 04/04/19 23:33 Roxicodone - PO 7.5 mg Q6H PRN Administration PAIN LEVEL 7 - 10 Pantoprazole Sodium 40 mg 04/03/19 10:00 04/05/19 09:11 Protonix - PO 40 mg DAILY [facility] Administration Polyethylene Glycol 17 gm 04/05/19 10:00 04/05/19 09:15 Miralax (For Daily Use) - PO Not Given DAILY [facility] Senna 2 tab 04/04/19 22:00 04/04/19 21:56 Senna - PO 2 tab HS [facility] Administration Simethicone 80 mg 04/04/19 19:04 04/05/19 13:19 Mylicon - PO 80 mg Q4H PRN Administration DYSPEPSIA Valsartan 320 mg 04/03/19 10:00 04/05/19 09:11 Diovan - PO 320 mg DAILY [facility] Administration Zolpidem Tartrate 10 mg 04/04/19 14:42 04/04/19 22:15 Ambien - PO 10 mg HS PRN Administration INSOMNIA ASSESSMENT/PLAN: Problem List - Problems (1) Shortness of breath on exertion Assessment/Plan: patient reports shortness of breath initially improved s/p thoracentesis, now again with dyspnea with physical exertion continue home lasix monitor intake/output bnp 548 supplemental oxygen as needed pulmonary consulted and following started on solumedrol taper for ILD, being tapered down tolerating room air, lungs clear to auscultation. Code(s): R06.02 - SHORTNESS OF BREATH (2) Bilateral pleural effusion Assessment/Plan: chest ct showed ground glass opacities which have increased since prior CT, bilateral small pleural effusions, new on left also seen Had a CTA done on last admission, negative for PE, a partially loculated r pleural effusion w/ lower lobe atelectasis seen on last image. On levaquin 500 IV daily. Echo 02/26/2019: LV normal, ef 60-65%, mild MR, mild TR, no pleural effusion Code(s): J90 - PLEURAL EFFUSION, NOT ELSEWHERE CLASSIFIED (3) Ground glass opacity present on imaging of lung Code(s): R91.8 - OTHER NONSPECIFIC ABNORMAL FINDING OF LUNG FIELD (4) Diabetes Assessment/Plan: hold home meds bgms with novolog ss a1c @ 10.2% increase levemir for elevated bgms today Code(s): E11.9 - TYPE 2 DIABETES MELLITUS WITHOUT COMPLICATIONS (5) Interstitial lung disease Assessment/Plan: being ruled out for ILD by pulmonary on steriod taper Code(s): J84.9 - INTERSTITIAL PULMONARY DISEASE, UNSPECIFIED (6) Prophylactic measure Assessment/Plan: fen no ivf monitor electrolytes low salt diet, diabetic lovenox 40 daily Code(s): Z29.9 - ENCOUNTER FOR PROPHYLACTIC MEASURES, UNSPECIFIED (7) DVT prophylaxis Assessment/Plan: lovenox 40 daily Code(s): Z29.9 - ENCOUNTER FOR PROPHYLACTIC MEASURES, UNSPECIFIED Visit type - Emergency Visit Emergency Visit: Yes ED Registration Date: 04/02/19 Care time: The patient presented to the Emergency Department on the above date and was hospitalized for further evaluation of their emergent condition. - New Patient This patient is new to me today: No - Critical Care Critical Care patient: No - Discharge Referral Referred to [facility] No
[2019-04-05] MEDS: LIDOCAINE 5% TOPICAL PATCH TP SCH (14:53)
[2019-04-05] MEDS ORDERED: INSULIN (NOVOLOG) ASPART 100 UNITS/ML 10ML VIAL ONE ×2 (17:14→17:49)
[2019-04-05] MEDS: SENNOSIDES 8.6MG TABLET (FP) PO SCH (22:03)
[2019-04-05] MEDS: INSULIN (LEVEMIR) 100 UNITS/ML UNITS SQ SCH (22:06)
[2019-04-05] MEDS: LIDOCAINE PATCH REMOVAL MC SCH (22:07)
[2019-04-05] MEDS: ZOLPIDEM TARTRATE 5 MG TABLET PO PRN (23:37)
[2019-04-06] MEDS: diphenhydrAMINE HCL 25 MG CAPSULE (FP) PO PRN ×2 (01:40→21:14)
[2019-04-06] MEDS: methylPREDNISolone NA SUCC 40 MG/1 ML VIAL IVPUSH SCH ×2 (01:40→10:00)
[2019-04-06] MEDS: oxyCODONE HCL 5 MG TABLET PO PRN ×3 (05:17→19:19)
[2019-04-06] MEDS: DOCUSATE SODIUM 100 MG CAPSULE (FP) PO SCH ×4 (05:18→21:14)
[2019-04-06] MEDS: INSULIN SLIDING SCALE (NOVOLOG) 1 VIAL SQ SCH ×4 (06:07→21:15)
[2019-04-06] MEDS: ALBUTEROL SO4 2.5/IPRATROPIUM 0.5 INH SOL 3 ML VIAL.NEB. NEB SCH ×3 (07:34→21:00)
[2019-04-06 08:07] LABS: BASO % 0.2 % (0-2.0); HEMATOCRIT 36.6 % (35.4-49); HEMOGLOBIN 11.8 GM/dL (11.7-16.9); LYMPH % 6.6 % (8-40); MCH 26.1 pg (25.7-33.7); MCHC 32.2 g/dl (32.0-35.9); MEAN CELL VOLUME 80.9 fl (80-96); MEAN PLT VOLUME 8.2 fl (7.5-11.1); MONO % 4.1 % (3.8-10.2); NEUT % 89.1 % (42.8-82.8); PLATELET COUNT 248 K/MM3 (134-434); RBC 4.52 M/mm3 (4.00-5.60); RDW 16.4 % (11.9-15.9); WHITE BLOOD COUNT 16.5 K/mm3 (4.0-10.0)
--- NOTE | 2019-04-06 08:32 | PN ---
Progress Note, Physician Chief Complaint: States breathing is much improved. Would like to be home by tuesday to watch football History of Present Illness: Patient is a 63 year old male with a significant past medical history of hypertension, hyperlipidemia, bph,diabetes type 2, arthritis, right ankle fracture with metal plates, bilateral knee surgery. He presents to the ED with complaints of shortness of breath and unable to lay flat or walk more than 30 feet without severe dyspnea for 3 weeks. Patient with a recent admission for dyspnea, productive cough, and orthopnea at [facility] from 02/24/19 to 02/26/2019. He had a thoracentesis done for right sided pleural effusion on 03/19/19 with 200cc of fluid removed as an outpatient. He states states compliance with all medications including the home lasix. - Current Medication List Current Medications: Active Medications Albuterol/Ipratropium (Duoneb -) 1 amp NEB RTID [facility] Last Admin: 04/06/19 07:34 Dose: 1 amp Amlodipine Besylate (Norvasc -) 10 mg PO DAILY [facility] Last Admin: 04/05/19 09:12 Dose: 10 mg Atenolol (Tenormin -) 50 mg PO DAILY [facility] Last Admin: 04/05/19 09:12 Dose: 50 mg Diphenhydramine HCl (Benadryl -) 50 mg PO HS PRN PRN Reason: INSOMNIA Last Admin: 04/06/19 01:40 Dose: 50 mg Docusate Sodium (Colace -) 100 mg PO TID [facility] Last Admin: 04/06/19 05:48 Dose: Not Given Enoxaparin Sodium (Lovenox -) 40 mg SQ DAILY [facility] Last Admin: 04/05/19 09:12 Dose: 40 mg Fenofibric Acid (Trilipix -) 135 mg PO DAILY [facility] Last Admin: 04/05/19 10:40 Dose: 135 mg Furosemide (Lasix -) 40 mg PO DAILY [facility] Last Admin: 04/05/19 09:11 Dose: 40 mg Levofloxacin (Levaquin 500 Mg Premixed Ivpb -) 500 mg in 100 mls @ 100 mls/hr IVPB DAILY [facility]; Protocol Last Admin: 04/05/19 09:13 Dose: 100 mls/hr Insulin Aspart (Novolog Vial Sliding Scale -) 1 vial SQ ACHS [facility]; Protocol Last Admin: 04/06/19 06:07 Dose: 16 units Insulin Detemir (Levemir Vial) 30 units SQ BID [facility] Last Admin: 04/05/19 22:06 Dose: 30 units Lidocaine (Lidoderm Patch -) 2 patch TP DAILY [facility] Last Admin: 04/05/19 14:53 Dose: 2 patch Loratadine (Claritin -) 10 mg PO DAILY [facility] Last Admin: 04/05/19 09:12 Dose: 10 mg Methylprednisolone Sodium Succinate (Solu-Medrol -) 40 mg IVPUSH Q8H-IV [facility] Last Admin: 04/06/19 01:40 Dose: 40 mg Miscellaneous (Lidoderm Patch Removal) 1 each MC DAILY@2200 [facility] Last Admin: 04/05/19 22:07 Dose: 1 each Oxycodone HCl (Roxicodone -) 7.5 mg PO Q6H PRN PRN Reason: PAIN LEVEL 7 - 10 Last Admin: 04/06/19 05:17 Dose: 7.5 mg Pantoprazole Sodium (Protonix -) 40 mg PO DAILY [facility] Last Admin: 04/05/19 09:11 Dose: 40 mg Polyethylene Glycol (Miralax (For Daily Use) -) 17 gm PO DAILY [facility] Last Admin: 04/05/19 09:15 Dose: Not Given Senna (Senna -) 2 tab PO HS [facility] Last Admin: 04/05/19 22:03 Dose: 2 tab Simethicone (Mylicon -) 80 mg PO Q4H PRN PRN Reason: DYSPEPSIA Last Admin: 04/05/19 22:03 Dose: 80 mg Valsartan (Diovan -) 320 mg PO DAILY [facility] Last Admin: 04/05/19 09:11 Dose: 320 mg Zolpidem Tartrate (Ambien -) 10 mg PO HS PRN PRN Reason: INSOMNIA Last Admin: 04/05/19 23:37 Dose: 10 mg - Objective Vital Signs: Vital Signs Temperature 97.4 F L 04/06/19 06:00 Pulse Rate 82 04/06/19 06:00 Respiratory Rate 20 04/06/19 06:00 Blood Pressure 150/68 04/06/19 06:00 O2 Sat by Pulse Oximetry (%) 94 L 04/05/19 21:00 Constitutional: Yes: Well Nourished, No Distress, Calm Eyes: Yes: WNL HENT: Yes: WNL, Atraumatic, Normocephalic Neck: Yes: WNL, Supple, Trachea Midline Cardiovascular: Yes: WNL, Regular Rate and Rhythm Respiratory: Yes: Regular, Diminished (L>R base) Gastrointestinal: Yes: WNL, Normal Bowel Sounds ...Rectal Exam: Yes: Deferred Genitourinary: Yes: WNL Breast(s): Yes: WNL Musculoskeletal: Yes: WNL Edema: No Peripheral Pulses WNL: Yes Peripheral Pulses: Left Radial: 2+, Right Radial: 2+, Left Doralis Pedis: 2+, Right Dorsalis Pedis: 2+, Left Femoral: 2+, Right Femoral: 2+ Integumentary: Yes: WNL Neurological: Yes: WNL, Alert, Oriented ...Motor Strength: WNL Psychiatric: Yes: WNL - ....Imaging Cat Scan: Report Reviewed (BL small pleural effusions, ground glass opacities with BL inflammation/infectious process) Problem List - Problems (1) Bilateral pleural effusion Assessment/Plan: recent thoracentesis on 03/09 SOB much improved finishing course of abx appreciate pulmonary recs not requiring supplemental O2 Code(s): J90 - PLEURAL EFFUSION, NOT ELSEWHERE CLASSIFIED (2) Diabetes Assessment/Plan: bgms with novolog ss a1c @ 10.2% c/w levemir, will need to go home on levemir diabetic diet Code(s): E11.9 - TYPE 2 DIABETES MELLITUS WITHOUT COMPLICATIONS (3) Ground glass opacity present on imaging of lung Assessment/Plan: outpt PFTs and CT chest Code(s): R91.8 - OTHER NONSPECIFIC ABNORMAL FINDING OF LUNG FIELD (4) Interstitial lung disease Assessment/Plan: on steroid taper change to prednisone tomorrow with taper over 2 weeks pulmonary f/y as outpatient Code(s): J84.9 - INTERSTITIAL PULMONARY DISEASE, UNSPECIFIED (5) Prophylactic measure Assessment/Plan: FEN adequate PO intake diabetic diet monitor electrolytes c/w lasix DVT ambulatory Dispo maintain as inpt if cont to clincally improve, dc home tmrw full code Code(s): Z29.9 - ENCOUNTER FOR PROPHYLACTIC MEASURES, UNSPECIFIED (6) Shortness of breath Assessment/Plan: resolving not requiring O2 c/w inhaled BD Code(s): R06.02 - SHORTNESS OF BREATH (7) HTN (hypertension) Assessment/Plan: c/w losartan Code(s): I10 - ESSENTIAL (PRIMARY) HYPERTENSION Visit type - Emergency Visit Emergency Visit: Yes ED Registration Date: 04/02/19 Care time: The patient presented to the Emergency Department on the above date and was hospitalized for further evaluation of their emergent condition. - New Patient This patient is new to me today: Yes Date on this admission: 04/06/19 - Critical Care Critical Care patient: No - Discharge Referral Referred to [facility] No
[2019-04-06 08:45] LABS: ALBUMIN 3.1 g/dl (3.4-5.0); BILIRUBIN,TOTAL 0.3 mg/dL (0.2-1); BLOOD UREA NITROGEN 46.5 mg/dL (7-18); CALCIUM 8.4 mg/dL (8.5-10.1); CREATININE 1.5 mg/dL (0.55-1.3); POTASSIUM 3.7 mmol/L (3.5-5.1); TOT PROT 6.9 g/dl (6.4-8.2)
[2019-04-06] MEDS: LIDOCAINE 5% TOPICAL PATCH TP SCH (09:34)
[2019-04-06] MEDS: VALSARTAN 160 MG TABLET (UD) PO SCH (09:34)
[2019-04-06] MEDS: PANTOPRAZOLE 40 MG TABLET (FP) PO SCH (09:34)
[2019-04-06] MEDS: ATENOLOL 50 MG TABLET (FP) PO SCH (09:34)
[2019-04-06] MEDS: LORATADINE 10 MG TABLET PO SCH (09:34)
[2019-04-06] MEDS: amLODIPine BESYLATE 10 MG TABLET (FP) PO SCH (09:34)
[2019-04-06] MEDS: FENOFIBRIC ACID 135 MG CAP PO SCH (09:34)
[2019-04-06] MEDS: FUROSEMIDE 40 MG TABLET (FP) PO SCH (09:34)
[2019-04-06] MEDS: ENOXAPARIN NA (PORCINE) 40 MG/0.4 ML DISP.SYRIN SQ SCH (09:35)
[2019-04-06] MEDS: INSULIN (LEVEMIR) 100 UNITS/ML UNITS SQ SCH ×2 (09:35→21:15)
[2019-04-06] MEDS: POLYETHYLENE GLYCOL 3350 119 GM BTL PO SCH (11:27)
[2019-04-06] MEDS ORDERED: INSULIN (NOVOLOG) ASPART 100 UNITS/ML 10ML VIAL ONE ×3 (11:36→21:04)
--- NOTE | 2019-04-06 12:20 | PN ---
Progress Note (short form) - Note Progress Note: Walking in the hallway. Breathing feels overall better. Less SOB. Some dry cough. Intake & Output 04/03/19 04/04/19 04/05/19 04/06/19 23:59 23:59 23:59 23:59 Intake Total 1340 1690 1360 500 Output Total 3 Balance 1340 1690 1357 500 Weight 210 lb 2 oz 199 lb 5 oz 204 lb Last Vital Signs Temp Pulse Resp BP Pulse Ox 97.7 F 92 H 20 143/60 94 L 04/06/19 10:00 04/06/19 10:00 04/06/19 10:00 04/06/19 10:00 04/06/19 09:00 Active Medications Albuterol/Ipratropium (Duoneb -) 1 amp NEB RTID [facility] Last Admin: 04/06/19 07:34 Dose: 1 amp Amlodipine Besylate (Norvasc -) 10 mg PO DAILY [facility] Last Admin: 04/06/19 09:34 Dose: 10 mg Atenolol (Tenormin -) 50 mg PO DAILY [facility] Last Admin: 04/06/19 09:34 Dose: 50 mg Diphenhydramine HCl (Benadryl -) 50 mg PO HS PRN PRN Reason: INSOMNIA Last Admin: 04/06/19 01:40 Dose: 50 mg Docusate Sodium (Colace -) 100 mg PO TID [facility] Last Admin: 04/06/19 05:48 Dose: Not Given Enoxaparin Sodium (Lovenox -) 40 mg SQ DAILY [facility] Last Admin: 04/06/19 09:35 Dose: 40 mg Fenofibric Acid (Trilipix -) 135 mg PO DAILY [facility] Last Admin: 04/06/19 09:34 Dose: 135 mg Furosemide (Lasix -) 40 mg PO DAILY [facility] Last Admin: 04/06/19 09:34 Dose: 40 mg Levofloxacin (Levaquin 500 Mg Premixed Ivpb -) 500 mg in 100 mls @ 100 mls/hr IVPB DAILY [facility]; Protocol Last Admin: 04/06/19 09:34 Dose: 100 mls/hr Insulin Aspart (Novolog Vial Sliding Scale -) 1 vial SQ ACHS [facility]; Protocol Last Admin: 04/06/19 11:38 Dose: 18 units Insulin Detemir (Levemir Vial) 30 units SQ BID [facility] Last Admin: 04/06/19 09:35 Dose: 30 units Lidocaine (Lidoderm Patch -) 2 patch TP DAILY [facility] Last Admin: 04/06/19 09:34 Dose: 2 patch Loratadine (Claritin -) 10 mg PO DAILY [facility] Last Admin: 04/06/19 09:34 Dose: 10 mg Methylprednisolone Sodium Succinate (Solu-Medrol -) 40 mg IVPUSH Q8H-IV [facility] Last Admin: 04/06/19 10:00 Dose: 40 mg Miscellaneous (Lidoderm Patch Removal) 1 each MC DAILY@2200 [facility] Last Admin: 04/05/19 22:07 Dose: 1 each Oxycodone HCl (Roxicodone -) 7.5 mg PO Q6H PRN PRN Reason: PAIN LEVEL 7 - 10 Last Admin: 04/06/19 05:17 Dose: 7.5 mg Pantoprazole Sodium (Protonix -) 40 mg PO DAILY [facility] Last Admin: 04/06/19 09:34 Dose: 40 mg Polyethylene Glycol (Miralax (For Daily Use) -) 17 gm PO DAILY [facility] Last Admin: 04/06/19 11:27 Dose: Not Given Senna (Senna -) 2 tab PO HS [facility] Last Admin: 04/05/19 22:03 Dose: 2 tab Simethicone (Mylicon -) 80 mg PO Q4H PRN PRN Reason: DYSPEPSIA Last Admin: 04/05/19 22:03 Dose: 80 mg Valsartan (Diovan -) 320 mg PO DAILY [facility] Last Admin: 04/06/19 09:34 Dose: 320 mg Zolpidem Tartrate (Ambien -) 10 mg PO HS PRN PRN Reason: INSOMNIA Last Admin: 04/05/19 23:37 Dose: 10 mg Gen: NAD at rest Heart: RRR Lung: decreased breath sounds at the bases Abd: soft, nontender Ext: distal edema Laboratory Results - last 24 hr 04/03/19 04/05/19 04/05/19 12:56 16:56 21:57 WBC RBC Hgb Hct MCV MCH MCHC RDW Plt Count MPV Absolute Neuts (auto) Neutrophils % Lymphocytes % Monocytes % Eosinophils % Basophils % Nucleated RBC % Sodium Potassium Chloride Carbon Dioxide Anion Gap BUN Creatinine Est GFR (CKD-EPI)AfAm Est GFR (CKD-EPI)NonAf POC Glucometer 427 424 Random Glucose Calcium Magnesium Total Bilirubin AST ALT Alkaline Phosphatase Total Protein Albumin AASHISH Screen Negative 04/06/19 04/06/19 04/06/19 05:22 07:25 07:25 WBC 16.5 H RBC 4.52 Hgb 11.8 Hct 36.6 MCV 80.9 MCH 26.1 MCHC 32.2 RDW 16.4 H Plt Count 248 MPV 8.2 Absolute Neuts (auto) 14.7 H Neutrophils % 89.1 H Lymphocytes % 6.6 L D Monocytes % 4.1 Eosinophils % 0.0 Basophils % 0.2 Nucleated RBC % 0 Sodium 139 Potassium 3.7 Chloride 103 Carbon Dioxide 26 Anion Gap 10 BUN 46.5 H Creatinine 1.5 H Est GFR (CKD-EPI)AfAm 57.41 Est GFR (CKD-EPI)NonAf 49.53 POC Glucometer 329 Random Glucose 269 H Calcium 8.4 L Magnesium 2.0 Total Bilirubin 0.3 AST 15 ALT 33 Alkaline Phosphatase 95 Total Protein 6.9 Albumin 3.1 L AASHISH Screen 04/06/19 11:32 WBC RBC Hgb Hct MCV MCH MCHC RDW Plt Count MPV Absolute Neuts (auto) Neutrophils % Lymphocytes % Monocytes % Eosinophils % Basophils % Nucleated RBC % Sodium Potassium Chloride Carbon Dioxide Anion Gap BUN Creatinine Est GFR (CKD-EPI)AfAm Est GFR (CKD-EPI)NonAf POC Glucometer 374 Random Glucose Calcium Magnesium Total Bilirubin AST ALT Alkaline Phosphatase Total Protein Albumin AASHISH Screen Problem List - Problems (1) Bilateral pleural effusion Code(s): J90 - PLEURAL EFFUSION, NOT ELSEWHERE CLASSIFIED (2) Ground glass opacity present on imaging of lung Code(s): R91.8 - OTHER NONSPECIFIC ABNORMAL FINDING OF LUNG FIELD (3) Shortness of breath Code(s): R06.02 - SHORTNESS OF BREATH A/P r/o Interstitial Lung Disease Mild Acute on Chronic Diastolic Heart Failure Bilateral Pleural Effusions Acute Bronchitis Hyponatremia HTN DM Hyperlipidemia - f/u final serologies - inhaled bronchodilators - DVT prophylaxis - 5 total day course of Levaquin should suffice - close outpt f/u - outpt PFTs and CT chest, may need thoracic eval if no improvement - Can change to Prednisone taper over 2 weeks starting at 40mg OD - There is no Pulmonary contraindication for DC home Dr Davila
[2019-04-06 16:07] LABS: ATYPICAL pANCA <1:20 titer (Neg:<1:20); C-ANCA <1:20 titer (Neg:<1:20)
[2019-04-06 17:39] LABS: PLATELET ESTIMATE ADEQUATE
[2019-04-06] MEDS: SENNOSIDES 8.6MG TABLET (FP) PO SCH (21:14)
[2019-04-06] MEDS: LIDOCAINE PATCH REMOVAL MC SCH (21:15)
[2019-04-06] MEDS: ZOLPIDEM TARTRATE 5 MG TABLET PO PRN (23:03)
[2019-04-07] MEDS ORDERED: METHYL SALICYLATE/MENTHOL OINT 30 GM TUBE TP PRN (00:57)
[2019-04-07] MEDS: oxyCODONE HCL 5 MG TABLET PO PRN ×2 (01:05→06:49)
[2019-04-07] MEDS: DOCUSATE SODIUM 100 MG CAPSULE (FP) PO SCH (06:50)
[2019-04-07] MEDS: INSULIN SLIDING SCALE (NOVOLOG) 1 VIAL SQ SCH ×2 (07:37→11:10)
--- NOTE | 2019-04-07 08:11 | DS ---
Physical Exam: SUBJECTIVE: Patient seen and examined OBJECTIVE: Patient is a 63 year old male with a significant past medical history of hypertension, hyperlipidemia, bph,diabetes type 2, arthritis, right ankle fracture with metal plates, bilateral knee surgery. He presents to the ED with complaints of shortness of breath and unable to lay flat or walk more than 30 feet without severe dyspnea for 3 weeks. Patient with a recent admission for dyspnea, productive cough, and orthopnea at [facility] from 02/24/19 to 02/26/2019. He had a thoracentesis done for right sided pleural effusion on 03/19/19 with 200cc of fluid removed as an outpatient. He states states compliance with all medications including the home lasix. Vital Signs Period Temp Pulse Resp BP Sys/Toth Pulse Ox Last 24 Hr 97.7 F-98.1 F 76-92 20-20 131-143/57-69 94-94 PHYSICAL EXAM Constitutional: Yes: Well Nourished, No Distress, Calm Eyes: Yes: WNL HENT: Yes: WNL, Atraumatic, Normocephalic Neck: Yes: WNL, Supple, Trachea Midline Cardiovascular: Yes: WNL, Regular Rate and Rhythm Respiratory: Yes: Regular, Diminished (L>R base) Gastrointestinal: Yes: WNL, Normal Bowel Sounds ...Rectal Exam: Yes: Deferred Genitourinary: Yes: WNL Breast(s): Yes: WNL Musculoskeletal: Yes: WNL Edema: No Peripheral Pulses WNL: Yes Peripheral Pulses: Left Radial: 2+, Right Radial: 2+, Left Doralis Pedis: 2+, Right Dorsalis Pedis: 2+, Left Femoral: 2+, Right Femoral: 2+ Integumentary: Yes: WNL Neurological: Yes: WNL, Alert, Oriented ...Motor Strength: WNL Psychiatric: Yes: WNL LABS Laboratory Results - last 24 hr 04/03/19 04/06/19 04/06/19 12:56 07:25 07:25 WBC 16.5 H RBC 4.52 Hgb 11.8 Hct 36.6 MCV 80.9 MCH 26.1 MCHC 32.2 RDW 16.4 H Plt Count 248 MPV 8.2 Absolute Neuts (auto) 14.7 H Neutrophils % 89.1 H Neutrophils % (Manual) 92.0 H Band Neutrophils % 1.0 Lymphocytes % 6.6 L D Lymphocytes % (Manual) 5.0 L D Monocytes % 4.1 Monocytes % (Manual) 1 L Eosinophils % 0.0 Eosinophils % (Manual) 0.0 Basophils % 0.2 Basophils % (Manual) 0.0 Nucleated RBC % 0 Metamyelocytes 1 D Platelet Estimate Adequate Sodium 139 Potassium 3.7 Chloride 103 Carbon Dioxide 26 Anion Gap 10 BUN 46.5 H Creatinine 1.5 H Est GFR (CKD-EPI)AfAm 57.41 Est GFR (CKD-EPI)NonAf 49.53 POC Glucometer Random Glucose 269 H Calcium 8.4 L Magnesium 2.0 Total Bilirubin 0.3 AST 15 ALT 33 Alkaline Phosphatase 95 Total Protein 6.9 Albumin 3.1 L c-ANCA <1:20 Proteinase 3 (PR3) <3.5 p-ANCA <1:20 Atypical p-ANCA <1:20 Myeloperoxidase Ab <9.0 04/06/19 04/06/19 04/06/19 11:32 16:55 20:54 WBC RBC Hgb Hct MCV MCH MCHC RDW Plt Count MPV Absolute Neuts (auto) Neutrophils % Neutrophils % (Manual) Band Neutrophils % Lymphocytes % Lymphocytes % (Manual) Monocytes % Monocytes % (Manual) Eosinophils % Eosinophils % (Manual) Basophils % Basophils % (Manual) Nucleated RBC % Metamyelocytes Platelet Estimate Sodium Potassium Chloride Carbon Dioxide Anion Gap BUN Creatinine Est GFR (CKD-EPI)AfAm Est GFR (CKD-EPI)NonAf POC Glucometer 374 353 356 Random Glucose Calcium Magnesium Total Bilirubin AST ALT Alkaline Phosphatase Total Protein Albumin c-ANCA Proteinase 3 (PR3) p-ANCA Atypical p-ANCA Myeloperoxidase Ab 04/07/19 06:24 WBC RBC Hgb Hct MCV MCH MCHC RDW Plt Count MPV Absolute Neuts (auto) Neutrophils % Neutrophils % (Manual) Band Neutrophils % Lymphocytes % Lymphocytes % (Manual) Monocytes % Monocytes % (Manual) Eosinophils % Eosinophils % (Manual) Basophils % Basophils % (Manual) Nucleated RBC % Metamyelocytes Platelet Estimate Sodium Potassium Chloride Carbon Dioxide Anion Gap BUN Creatinine Est GFR (CKD-EPI)AfAm Est GFR (CKD-EPI)NonAf POC Glucometer 123 Random Glucose Calcium Magnesium Total Bilirubin AST ALT Alkaline Phosphatase Total Protein Albumin c-ANCA Proteinase 3 (PR3) p-ANCA Atypical p-ANCA Myeloperoxidase Ab HOSPITAL COURSE: Date of Admission:04/02/19 Date of Discharge: 04/07/19 Problem List - Problems (1) Bilateral pleural effusion Assessment/Plan: recent thoracentesis on 03/09 SOB much improved finished course of abx not requiring supplemental O2 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 in 8 weeks Code(s): J90 - PLEURAL EFFUSION, NOT ELSEWHERE CLASSIFIED (2) Diabetes Assessment/Plan: bgms with novolog ss a1c @ 10.2% pt refusing home levemir glipizide increased to 5mg bid ordered glucometer for pt to check BS at home and stressed improtance of glycemic control advised to call pmg for followup in 1 week diabetic diet Code(s): E11.9 - TYPE 2 DIABETES MELLITUS WITHOUT COMPLICATIONS (3) Ground glass opacity present on imaging of lung Assessment/Plan: outpt PFTs and CT chest Code(s): R91.8 - OTHER NONSPECIFIC ABNORMAL FINDING OF LUNG FIELD (4) Interstitial lung disease Assessment/Plan: on steroid taper over 12 weeks change to prednisone tomorrow with taper over 2 weeks pulmonary f/u as outpatient Code(s): J84.9 - INTERSTITIAL PULMONARY DISEASE, UNSPECIFIED (5) Prophylactic measure Assessment/Plan: FEN adequate PO intake diabetic diet monitor electrolytes c/w lasix at home DVT ambulatory Dispo medically stable for discharge home without services Code(s): Z29.9 - ENCOUNTER FOR PROPHYLACTIC MEASURES, UNSPECIFIED (6) Shortness of breath Assessment/Plan: resolved not requiring O2 c/w inhaled BD Code(s): R06.02 - SHORTNESS OF BREATH (7) HTN (hypertension) Assessment/Plan: c/w losartan Code(s): I10 - ESSENTIAL (PRIMARY) HYPERTENSION Medically stable for discharge to home without services Minutes to complete discharge: 45 Discharge Summary Problems reviewed: No Reason For Visit: SOB Current Active Problems Bilateral pleural effusion (Acute) DVT prophylaxis (Acute) Diabetes (Acute) Ground glass opacity present on imaging of lung (Acute) HTN (hypertension) (Acute) Hypogonadism in male (Acute) Interstitial lung disease (Acute) Prophylactic measure (Acute) Shortness of breath (Acute) Hospital Course: HOSPITAL COURSE: Date of Admission:04/02/19 Date of Discharge: 04/07/19 Problem List - Problems (1) Bilateral pleural effusion Assessment/Plan: recent thoracentesis on 03/09 SOB much improved finishing course of abx appreciate pulmonary recs not requiring supplemental O2 Code(s): J90 - PLEURAL EFFUSION, NOT ELSEWHERE CLASSIFIED (2) Diabetes Assessment/Plan: bgms with novolog ss a1c @ 10.2% c/w levemir, will need to go home on levemir diabetic diet Code(s): E11.9 - TYPE 2 DIABETES MELLITUS WITHOUT COMPLICATIONS (3) Ground glass opacity present on imaging of lung Assessment/Plan: outpt PFTs and CT chest Code(s): R91.8 - OTHER NONSPECIFIC ABNORMAL FINDING OF LUNG FIELD (4) Interstitial lung disease Assessment/Plan: on steroid taper change to prednisone tomorrow with taper over 2 weeks pulmonary f/y as outpatient Code(s): J84.9 - INTERSTITIAL PULMONARY DISEASE, UNSPECIFIED (5) Prophylactic measure Assessment/Plan: FEN adequate PO intake diabetic diet monitor electrolytes c/w lasix DVT ambulatory Dispo maintain as inpt if cont to clincally improve, dc home tmrw full code Code(s): Z29.9 - ENCOUNTER FOR PROPHYLACTIC MEASURES, UNSPECIFIED (6) Shortness of breath Assessment/Plan: resolving not requiring O2 c/w inhaled BD Code(s): R06.02 - SHORTNESS OF BREATH (7) HTN (hypertension) Assessment/Plan: c/w losartan Code(s): I10 - ESSENTIAL (PRIMARY) HYPERTENSION - Instructions Diet, Activity, Other Instructions: DISCHARGE YOUR VISIT You came to the hospital because MEDICATIONS Please continue to take your home medications as prescribed. There was XXXXX changes DIET Continue your home diet ADDITIONAL CARE Please make an appointment to see your primary care provider, [phone] 1 week from today. ADDITIONAL INFORMATION Please call 911 or come directly to the emergency department if you experience unusual headache, vision change, shortness of breath, chest pain, numbness, tingling, loss of alertness/awareness, loss of function, unusual bleeding or any alarming symptoms. Thank you for allowing me to care for you. Josef Fontenot, ACNP, DNP [facility] PREDNISONE TAPER 1/4 40 mg (4- 10mg tablets) 1/5 40 mg (4- 10mg tablets) 1/6 40 mg (4- 10mg tablets) 1/7 30 mg (3- 10mg tablets) /8 30 mg (3- 10mg tablets) 04/12 30 mg (3- 10mg tablets) / 20 mg (2- 10mg tablets) 04/14 20 mg (2- 10mg tablets) 04/15 20 mg (2- 10mg tablets) 04/16 10 mg (1- 10mg tablets) 04/17 10 mg (1- 10mg tablets) 04/18 10 mg (1- 10mg tablets) 04/19 5 mg (1/2- 10mg tablets) 0 Referrals: Bernardo Davila MD [Staff Physician] - 1 Month Disposition: HOME - Home Medications Comprehensive Discharge Medication List: Ambulatory Orders Atenolol [Tenormin -] 50 mg PO DAILY 02/24/19 Glipizide [Glipizide ER] 5 mg PO DAILY 02/24/19 Ibuprofen 600 mg PO TID 02/24/19 Omeprazole 40 mg PO DAILY 02/24/19 Amlodipine Besylate [Norvasc -] 10 mg PO DAILY #30 tablet 02/26/19 Valsartan [Diovan] 320 mg PO DAILY #60 tablet 02/26/19 Diphenhydramine HCl [Benadryl Capsule -] 50 mg PO HS PRN capsule 04/06/19 Docusate Sodium [Colace -] 100 mg PO TID capsule 04/06/19 Fenofibric Acid [Trilipix -] 135 mg PO DAILY #30 cap 04/06/19 Furosemide [Lasix -] 40 mg PO DAILY tablet 04/06/19 Insulin (Levemir) [Levemir Vial] 30 units SQ BID #100 units 04/06/19 Isopropyl Alcohol [Alcoh-Wipe] 1 each MC BID #1 box 04/06/19 Loratadine [Claritin -] 10 mg PO DAILY tablet 04/06/19 Pantoprazole Sodium [Protonix -] 40 mg PO DAILY #30 tablet.ec 04/06/19 Prednisone 10 mg PO ASDIR #30 tablet 04/06/19 Sennosides [Senna -] 2 tab PO HS tablet 04/06/19 Syring-Needl,Disp,Insul,0.3 ml [Insulin Syringe] 1 each MC BID #100 disp.syrin 04/06/19 Valsartan [Diovan] 320 mg PO DAILY tablet 04/06/19 Zolpidem Tartrate [Ambien] 10 mg PO HS PRN tablet MDD 1 04/06/19 Problem List - Problems (1) Bilateral pleural effusion Code(s): J90 - PLEURAL EFFUSION, NOT ELSEWHERE CLASSIFIED (2) Diabetes Code(s): E11.9 - TYPE 2 DIABETES MELLITUS WITHOUT COMPLICATIONS (3) Ground glass opacity present on imaging of lung Code(s): R91.8 - OTHER NONSPECIFIC ABNORMAL FINDING OF LUNG FIELD (4) Interstitial lung disease Code(s): J84.9 - INTERSTITIAL PULMONARY DISEASE, UNSPECIFIED (5) Prophylactic measure Code(s): Z29.9 - ENCOUNTER FOR PROPHYLACTIC MEASURES, UNSPECIFIED (6) Shortness of breath Code(s): R06.02 - SHORTNESS OF BREATH (7) HTN (hypertension) Code(s): I10 - ESSENTIAL (PRIMARY) HYPERTENSION This patient is new to me today: No Emergency Visit: Yes ED Registration Date: 04/02/19 Care time: The patient presented to the Emergency Department on the above date and was hospitalized for further evaluation of their emergent condition. Critical Care patient: No - Discharge Referral Referred to [facility] Med P.C.: No
[2019-04-07] MEDS ORDERED: PT OWN MED DRAWER 7, Y5N ONE (08:44)
[2019-04-07] MEDS: ALBUTEROL SO4 2.5/IPRATROPIUM 0.5 INH SOL 3 ML VIAL.NEB. NEB SCH (08:53)
[2019-04-07 08:57] VITALS: BP 143/70; PULSE 99; TEMP 98
[2019-04-07] MEDS: PANTOPRAZOLE 40 MG TABLET (FP) PO SCH (09:16)
[2019-04-07] MEDS: ATENOLOL 50 MG TABLET (FP) PO SCH (09:16)
[2019-04-07] MEDS: VALSARTAN 160 MG TABLET (UD) PO SCH (09:16)
[2019-04-07] MEDS: FENOFIBRIC ACID 135 MG CAP PO SCH (09:16)
[2019-04-07] MEDS: ENOXAPARIN NA (PORCINE) 40 MG/0.4 ML DISP.SYRIN SQ SCH (09:16)
[2019-04-07] MEDS: FUROSEMIDE 40 MG TABLET (FP) PO SCH (09:16)
[2019-04-07] MEDS: LORATADINE 10 MG TABLET PO SCH (09:16)
[2019-04-07] MEDS: amLODIPine BESYLATE 10 MG TABLET (FP) PO SCH (09:16)
[2019-04-07] MEDS: LIDOCAINE 5% TOPICAL PATCH TP SCH (09:17)
[2019-04-07] MEDS: INSULIN (LEVEMIR) 100 UNITS/ML UNITS SQ SCH (09:17)
[2019-04-07] MEDS: POLYETHYLENE GLYCOL 3350 119 GM BTL PO SCH (09:17)
[2019-04-07] MEDS ORDERED: predniSONE 20 MG TABLET (UD) PO SCH (10:00)
[2019-04-07] MEDS ORDERED: glipiZIDE 5 MG TABLET (FP) PO SCH (16:30)
== END 2019-04-07 11:25 | disposition home or self-care (01) | DRG 186 ==
LOC: JER 10:16 → JERBED 17:02 → J6S 20:30
PROVIDERS: ADMIT Internal Medicine; ATTEND Nurse Practitioner Acute Care
DX: J90 Pleural effusion, not elsewhere classified (principal); I50.33 Acute on chronic diastolic (congestive) heart failure; E87.1 Hypo-osmolality and hyponatremia; J84.9 Interstitial pulmonary disease, unspecified; I11.0 Hypertensive heart disease with heart failure; E78.5 Hyperlipidemia, unspecified; N40.0 Benign prostatic hyperplasia without lower urinary tract symptoms; E11.9 Type 2 diabetes mellitus without complications; R91.8 Other nonspecific abnormal finding of lung field; R06.02 Shortness of breath; E29.1 Testicular hypofunction; J20.9 Acute bronchitis, unspecified
CPT/HCPCS: 36415; 71046-TC-FY; 71250-TC; 80053; 82550; 82962; 83036; 83520; 83735; 83880; 84100; 84484; 85025; 85027; 85651; 86038; 86140; 86256; 86431; 93005; 93010; 94640; 99283-25

== ENCOUNTER 2023-04-07 03:49 | Inpatient (IN) | payer BC, OTHER ==
[2023-04-07] MEDS ORDERED: ALBUTEROL SO4 2.5/IPRATROPIUM 0.5 INH SOL 3 ML VIAL.NEB. NEB ONE ×2 (05:10→05:50)
[2023-04-07] MEDS ORDERED: methylPREDNISolone NA SUCC 125 MG/2 ML VIAL IVPB ONE (05:10)
[2023-04-07] MEDS ORDERED: methylPREDNISolone NA SUCC 125 MG/2 ML VIAL ONE (05:50)
[2023-04-07 06:43] LABS: HEMATOCRIT 44.2 % (35.4-49); HEMOGLOBIN 13.9 GM/dL (11.7-16.9); MCH 27.4 pg (25.7-33.7); MCHC 31.4 g/dl (32.0-35.9); MEAN CELL VOLUME 87.2 fl (80-96); MEAN PLT VOLUME 8.5 fl (7.5-11.1); PLATELET COUNT 265 10^3/uL (134-434); RBC 5.07 M/mm3 (4.00-5.60); RDW 18.9 % (11.9-15.9); WHITE BLOOD COUNT 22.8 K/mm3 (4.0-10.0)
[2023-04-07 06:52] LABS: INR 1.71 (0.83-1.09); POTASSIUM 3.9 mmol/L (3.5-5.1); PROTHROMBIN TIME (PATIENT) 19.7 SEC (9.7-13.0)
[2023-04-07 06:54] LABS: ALBUMIN 3.1 g/dl (3.4-5.0); BLOOD UREA NITROGEN 62.6 mg/dL (7-18); CALCIUM 9.6 mg/dL (8.5-10.1)
[2023-04-07 06:55] LABS: ACTIVATED PTT 60.5 SECONDS (25.2-36.5)
[2023-04-07 06:58] LABS: CREATININE 2.3 mg/dL (0.55-1.3)
[2023-04-07 06:59] LABS: BILIRUBIN,TOTAL 0.9 mg/dL (0.2-1); TOT PROT 6.6 g/dl (6.4-8.2)
[2023-04-07 07:02] LABS: N-TERMINAL BNP 8521.9 pg/ml (5-125)
[2023-04-07] MEDS ORDERED: FUROSEMIDE 40 MG/4 ML INJECTABLE VIAL IVPUSH ONE (07:09)
[2023-04-07] MEDS ORDERED: FUROSEMIDE 40 MG/4 ML INJECTABLE VIAL ONE ×3 (07:33→13:22)
[2023-04-07 08:31] LABS: EPI CELLS 2 /uL (0-25.1); HYALINE CASTS 0 /uL (0-3.1); PH,URINE 6.5 (5.0-8.0); URINE APPEARANCE CLEAR; URINE BACTERIA 0 /uL (0-1359); URINE BILIRUBIN NEGATIVE (NEGATIVE); URINE COLOR YELLOW; URINE GLUCOSE (UA) 3+ (NEGATIVE); URINE KETONE NEGATIVE (NEGATIVE); URINE LEUK ESTERASE NEGATIVE (NEGATIVE); URINE NITRITE NEGATIVE (NEGATIVE); URINE PROTEIN 1+ (NEGATIVE); URINE RBC 4 /uL (0-23.9); URINE UROBILINOGEN 0.2 mg/dL (0.2-1.0); URINE WBC 2 /uL (0-25.8)
[2023-04-07 08:34] LABS: ANISOCYTOSIS 0; MACROCYTOSIS 0
[2023-04-07] MEDS: FUROSEMIDE 40 MG/4 ML INJECTABLE VIAL IVPUSH SCH ×2 (10:22→13:33)
[2023-04-07] MEDS: INSULIN ASPART SLIDING SCALE (NOVOLOG) 1 VIAL SQ SCH ×3 (12:24→22:37)
[2023-04-07] MEDS ORDERED: HEPARIN NA (PORCINE) 5,000 UNITS/ML 1ML VIAL ONE ×2 (13:22→22:32)
[2023-04-07] MEDS: HEPARIN NA (PORCINE) 5,000 UNITS/ML 1ML VIAL SQ SCH ×2 (13:33→22:37)
[2023-04-07] MEDS ORDERED: ACETAMINOPHEN INJECTION 100 ML IVPB ONE (18:03)
[2023-04-08] MEDS ORDERED: ACETAMINOPHEN INJECTION 100 ML IVPB ONE ×2 (00:26→07:58)
[2023-04-08] MEDS: ACETAMINOPHEN 1000 MG/100 ML BAG IVPB PRN ×2 (00:28→08:09)
[2023-04-08] MEDS ORDERED: GABAPENTIN 300 MG CAPSULE PO ONE (06:05)
[2023-04-08] MEDS ORDERED: FUROSEMIDE 40 MG/4 ML INJECTABLE VIAL ONE ×2 (06:16→14:15)
[2023-04-08] MEDS ORDERED: HEPARIN NA (PORCINE) 5,000 UNITS/ML 1ML VIAL ONE (06:16)
[2023-04-08] MEDS: HEPARIN NA (PORCINE) 5,000 UNITS/ML 1ML VIAL SQ SCH (06:28)
[2023-04-08] MEDS: FUROSEMIDE 40 MG/4 ML INJECTABLE VIAL IVPUSH SCH ×2 (06:28→15:19)
[2023-04-08 07:44] LABS: POTASSIUM 3.7 mmol/L (3.5-5.1)
[2023-04-08 07:47] LABS: ALBUMIN 3.1 g/dl (3.4-5.0); BLOOD UREA NITROGEN 70.1 mg/dL (7-18); CALCIUM 8.9 mg/dL (8.5-10.1); MAGNESIUM 1.7 mg/dL (1.8-2.4)
[2023-04-08 07:49] LABS: HEMATOCRIT 43.9 % (35.4-49); MCH 27.6 pg (25.7-33.7); MCHC 31.9 g/dl (32.0-35.9); MEAN CELL VOLUME 86.7 fl (80-96); MEAN PLT VOLUME 8.7 fl (7.5-11.1); PLATELET COUNT 259 10^3/uL (134-434); RBC 5.07 M/mm3 (4.00-5.60); WHITE BLOOD COUNT 21.1 K/mm3 (4.0-10.0)
[2023-04-08 07:50] LABS: CREATININE 2.4 mg/dL (0.55-1.3); PHOSPHOROUS 3.6 mg/dL (2.5-4.9)
[2023-04-08 07:52] LABS: BILIRUBIN,TOTAL 0.7 mg/dL (0.2-1); TOT PROT 6.6 g/dl (6.4-8.2)
[2023-04-08] MEDS: INSULIN ASPART SLIDING SCALE (NOVOLOG) 1 VIAL SQ SCH ×4 (08:10→22:15)
[2023-04-08 08:52] LABS: ANISOCYTOSIS 0; MACROCYTOSIS 0
[2023-04-08] MEDS ORDERED: MAGNESIUM SULFATE IN WATER 2 GM/50 ML IVPB IVPB ONE (09:11)
[2023-04-08] MEDS ORDERED: TAMSULOSIN HCL 0.4 MG CAP ONE (09:20)
[2023-04-08] MEDS ORDERED: hydrALAZINE HCL 50 MG TABLET (FP) ONE (09:20)
[2023-04-08] MEDS: hydrALAZINE HCL 50 MG TABLET (FP) PO SCH ×2 (09:26→22:14)
[2023-04-08] MEDS: TAMSULOSIN HCL 0.4 MG CAP PO SCH (09:26)
[2023-04-08] MEDS ORDERED: NIFEdipine E.R 60 MG TABLET PO ONE (09:27)
[2023-04-08] MEDS: NIFEdipine E.R 60 MG TABLET PO SCH (09:40)
[2023-04-08] MEDS ORDERED: MAGNESIUM SULF 50% (8.12 MEQ/2 ML-1 GM VIAL) IVPB ONE (10:00)
[2023-04-08] MEDS ORDERED: predniSONE 20 MG TABLET (UD) PO SCH ×2 (12:00→12:10)
[2023-04-08] MEDS: APIXABAN 5 MG TABLET PO SCH ×2 (12:37→22:13)
[2023-04-08 18:48] VITALS: BMI 40.3
[2023-04-08] MEDS ORDERED: traMADol HCL 50 MG TABLET PO ONE ×2 (18:58→21:30)
[2023-04-08] MEDS: ACETAMINOPHEN 325 MG TABLET (FP) PO PRN (19:02)
[2023-04-08] MEDS ORDERED: INSULIN (NOVOLOG) ASPART 100 UNITS/ML 10ML VIAL ONE (21:23)
[2023-04-08] MEDS ORDERED: BUDESONIDE/FORMETEROL FUMARATE 160/4.5 mcg INHALER IH SCH (22:00)
[2023-04-08] MEDS: MELATONIN 5 MG TABLETS PO PRN (22:29)
[2023-04-09] MEDS: ACETAMINOPHEN 325 MG TABLET (FP) PO PRN ×3 (01:15→21:56)
[2023-04-09] MEDS: FUROSEMIDE 40 MG/4 ML INJECTABLE VIAL IVPUSH SCH ×2 (06:17→13:57)
[2023-04-09] MEDS: INSULIN ASPART SLIDING SCALE (NOVOLOG) 1 VIAL SQ SCH ×4 (06:24→22:01)
[2023-04-09 07:15] LABS: HEMATOCRIT 45.2 % (35.4-49); HEMOGLOBIN 14.3 GM/dL (11.7-16.9); MCH 27.5 pg (25.7-33.7); MCHC 31.8 g/dl (32.0-35.9); MEAN CELL VOLUME 86.6 fl (80-96); MEAN PLT VOLUME 8.5 fl (7.5-11.1); PLATELET COUNT 232 10^3/uL (134-434); RBC 5.22 M/mm3 (4.00-5.60); RDW 18.8 % (11.9-15.9); WHITE BLOOD COUNT 19.7 K/mm3 (4.0-10.0)
[2023-04-09] MEDS ORDERED: traMADol HCL 50 MG TABLET PO ONE (07:45)
[2023-04-09 07:49] LABS: POTASSIUM 3.5 mmol/L (3.5-5.1)
[2023-04-09 07:54] LABS: ALBUMIN 3.2 g/dl (3.4-5.0); CALCIUM 7.9 mg/dL (8.5-10.1); MAGNESIUM 1.8 mg/dL (1.8-2.4)
[2023-04-09 07:57] LABS: CREATININE 2.3 mg/dL (0.55-1.3); PHOSPHOROUS 4.2 mg/dL (2.5-4.9)
[2023-04-09 07:59] LABS: TOT PROT 6.7 g/dl (6.4-8.2)
[2023-04-09] MEDS: TAMSULOSIN HCL 0.4 MG CAP PO SCH (08:56)
[2023-04-09] MEDS: hydrALAZINE HCL 50 MG TABLET (FP) PO SCH ×2 (10:16→21:56)
[2023-04-09] MEDS: NIFEdipine E.R 60 MG TABLET PO SCH (10:16)
[2023-04-09] MEDS: APIXABAN 5 MG TABLET PO SCH ×2 (10:16→21:56)
[2023-04-09] MEDS: FLUTICASONE/UMECLIDIN/VILANTER(200-62.5-25 TRELEGY ELLIPTA) INAHLER IH SCH (10:20)
[2023-04-09] MEDS: ALBUTEROL SO4 2.5/IPRATROPIUM 0.5 INH SOL 3 ML VIAL.NEB. NEB PRN (17:20)
[2023-04-09] MEDS: traMADol HCL 50 MG TABLET PO PRN (17:46)
[2023-04-09] MEDS: predniSONE 20 MG TABLET (UD) PO SCH (18:51)
[2023-04-09 19:13] LABS: EPI CELLS 1 /uL (0-25.1); HYALINE CASTS 0 /uL (0-3.1); PH,URINE 5.5 (5.0-8.0); URINE APPEARANCE CLEAR; URINE BACTERIA 1 /uL (0-1359); URINE BILIRUBIN NEGATIVE (NEGATIVE); URINE COLOR YELLOW; URINE GLUCOSE (UA) 1+ (NEGATIVE); URINE KETONE NEGATIVE (NEGATIVE); URINE LEUK ESTERASE NEGATIVE (NEGATIVE); URINE NITRITE NEGATIVE (NEGATIVE); URINE PROTEIN 2+ (NEGATIVE); URINE RBC 1 /uL (0-23.9); URINE UROBILINOGEN 0.2 mg/dL (0.2-1.0); URINE WBC 1 /uL (0-25.8)
[2023-04-09] MEDS ORDERED: SODIUM CHLORIDE NASAL SPRAY 44 ML BOTTLE NS PRN (22:12)
[2023-04-09] MEDS: MELATONIN 5 MG TABLETS PO PRN (22:30)
[2023-04-10] MEDS: traMADol HCL 50 MG TABLET PO PRN ×3 (00:02→20:34)
[2023-04-10] MEDS: FUROSEMIDE 40 MG/4 ML INJECTABLE VIAL IVPUSH SCH ×2 (06:25→14:43)
[2023-04-10] MEDS: INSULIN ASPART SLIDING SCALE (NOVOLOG) 1 VIAL SQ SCH ×4 (06:25→22:27)
[2023-04-10] MEDS: predniSONE 20 MG TABLET (UD) PO SCH (09:47)
[2023-04-10] MEDS: APIXABAN 5 MG TABLET PO SCH ×2 (09:47→22:22)
[2023-04-10] MEDS: NIFEdipine E.R 60 MG TABLET PO SCH (09:47)
[2023-04-10] MEDS: hydrALAZINE HCL 50 MG TABLET (FP) PO SCH ×2 (09:47→22:23)
[2023-04-10] MEDS: TAMSULOSIN HCL 0.4 MG CAP PO SCH (09:47)
[2023-04-10] MEDS: FLUTICASONE/UMECLIDIN/VILANTER(200-62.5-25 TRELEGY ELLIPTA) INAHLER IH SCH (09:48)
[2023-04-10 16:27] LABS: HEMATOCRIT 43.3 % (35.4-49); HEMOGLOBIN 13.9 GM/dL (11.7-16.9); MCH 27.6 pg (25.7-33.7); MCHC 32.2 g/dl (32.0-35.9); MEAN CELL VOLUME 85.8 fl (80-96); MEAN PLT VOLUME 8.8 fl (7.5-11.1); PLATELET COUNT 193 10^3/uL (134-434); RBC 5.05 M/mm3 (4.00-5.60); RDW 18.9 % (11.9-15.9); WHITE BLOOD COUNT 17.5 K/mm3 (4.0-10.0)
[2023-04-10 16:39] LABS: CALCIUM 8.6 mg/dL (8.5-10.1)
[2023-04-10 16:40] LABS: ALBUMIN 3.4 g/dl (3.4-5.0); BLOOD UREA NITROGEN 79.4 mg/dL (7-18)
[2023-04-10 16:43] LABS: CREATININE 2.2 mg/dL (0.55-1.3)
[2023-04-10 16:44] LABS: TOT PROT 6.8 g/dl (6.4-8.2)
[2023-04-10 16:45] LABS: BILIRUBIN,TOTAL 0.9 mg/dL (0.2-1)
[2023-04-10] MEDS ORDERED: GABAPENTIN 100 MG CAPSULE PO SCH (22:00)
[2023-04-10] MEDS: GABAPENTIN 300 MG CAPSULE PO SCH (22:23)
[2023-04-10] MEDS: ACETAMINOPHEN 325 MG TABLET (FP) PO PRN (22:23)
[2023-04-10] MEDS: MELATONIN 5 MG TABLETS PO PRN (22:23)
[2023-04-10] MEDS ORDERED: INSULIN (NOVOLOG) ASPART 100 UNITS/ML 10ML VIAL ONE (22:29)
[2023-04-11] MEDS: traMADol HCL 50 MG TABLET PO PRN ×3 (03:02→19:59)
[2023-04-11] MEDS: INSULIN ASPART SLIDING SCALE (NOVOLOG) 1 VIAL SQ SCH ×4 (06:07→21:11)
[2023-04-11] MEDS: GABAPENTIN 300 MG CAPSULE PO SCH ×3 (06:07→21:07)
[2023-04-11] MEDS: FUROSEMIDE 40 MG/4 ML INJECTABLE VIAL IVPUSH SCH ×2 (06:07→13:52)
[2023-04-11 07:43] LABS: HEMATOCRIT 41.9 % (35.4-49); HEMOGLOBIN 13.3 GM/dL (11.7-16.9); MCH 27.6 pg (25.7-33.7); MCHC 31.8 g/dl (32.0-35.9); MEAN CELL VOLUME 86.9 fl (80-96); MEAN PLT VOLUME 9.2 fl (7.5-11.1); PLATELET COUNT 194 10^3/uL (134-434); RBC 4.82 M/mm3 (4.00-5.60); RDW 18.3 % (11.9-15.9); WHITE BLOOD COUNT 16.8 K/mm3 (4.0-10.0)
[2023-04-11 08:03] LABS: BLOOD UREA NITROGEN 74.2 mg/dL (7-18)
[2023-04-11 08:04] LABS: CALCIUM 7.5 mg/dL (8.5-10.1); MAGNESIUM 1.8 mg/dL (1.8-2.4)
[2023-04-11 08:06] LABS: CREATININE 2.2 mg/dL (0.55-1.3); PHOSPHOROUS 3.7 mg/dL (2.5-4.9)
[2023-04-11] MEDS ORDERED: POTASSIUM CHLORIDE ORAL LIQUID 20 MEQ/15 ML PO ONE ×3 (09:05→14:15)
[2023-04-11] MEDS: NIFEdipine E.R 60 MG TABLET PO SCH (09:27)
[2023-04-11] MEDS: TAMSULOSIN HCL 0.4 MG CAP PO SCH (09:27)
[2023-04-11] MEDS: predniSONE 20 MG TABLET (UD) PO SCH (09:28)
[2023-04-11] MEDS: APIXABAN 5 MG TABLET PO SCH ×2 (09:28→21:07)
[2023-04-11] MEDS: hydrALAZINE HCL 50 MG TABLET (FP) PO SCH ×2 (09:28→21:11)
[2023-04-11] MEDS: FLUTICASONE/UMECLIDIN/VILANTER(200-62.5-25 TRELEGY ELLIPTA) INAHLER IH SCH (09:52)
[2023-04-11] MEDS: ACETAMINOPHEN 325 MG TABLET (FP) PO PRN ×2 (12:09→23:34)
[2023-04-11] MEDS ORDERED: INSULIN (NOVOLOG) ASPART 100 UNITS/ML 10ML VIAL ONE (21:10)
[2023-04-11] MEDS: MELATONIN 5 MG TABLETS PO PRN (23:34)
[2023-04-12] MEDS: traMADol HCL 50 MG TABLET PO PRN ×3 (03:20→21:11)
[2023-04-12] MEDS: FUROSEMIDE 40 MG/4 ML INJECTABLE VIAL IVPUSH SCH ×2 (05:26→15:00)
[2023-04-12] MEDS: GABAPENTIN 300 MG CAPSULE PO SCH ×3 (05:26→21:11)
[2023-04-12] MEDS: hydrALAZINE HCL 50 MG TABLET (FP) PO SCH ×3 (05:26→21:11)
[2023-04-12] MEDS ORDERED: INSULIN (NOVOLOG) ASPART 100 UNITS/ML 10ML VIAL ONE ×2 (06:25→21:41)
[2023-04-12] MEDS: INSULIN ASPART SLIDING SCALE (NOVOLOG) 1 VIAL SQ SCH ×4 (06:25→21:44)
[2023-04-12 07:28] LABS: HEMATOCRIT 44.5 % (35.4-49); HEMOGLOBIN 14.3 GM/dL (11.7-16.9); MCH 27.8 pg (25.7-33.7); MCHC 32.2 g/dl (32.0-35.9); MEAN CELL VOLUME 86.3 fl (80-96); MEAN PLT VOLUME 9.1 fl (7.5-11.1); PLATELET COUNT 204 10^3/uL (134-434); RBC 5.16 M/mm3 (4.00-5.60); RDW 18.7 % (11.9-15.9); WHITE BLOOD COUNT 16.3 K/mm3 (4.0-10.0)
[2023-04-12 07:46] LABS: POTASSIUM 3.2 mmol/L (3.5-5.1)
[2023-04-12 07:58] LABS: CALCIUM 8.3 mg/dL (8.5-10.1)
[2023-04-12 07:59] LABS: BLOOD UREA NITROGEN 77.8 mg/dL (7-18)
[2023-04-12 08:02] LABS: CREATININE 2.1 mg/dL (0.55-1.3)
[2023-04-12] MEDS ORDERED: POTASSIUM CHLORIDE ORAL LIQUID 20 MEQ/15 ML PO ONE ×2 (08:49→09:17)
[2023-04-12] MEDS: TAMSULOSIN HCL 0.4 MG CAP PO SCH (09:08)
[2023-04-12] MEDS: NIFEdipine E.R 60 MG TABLET PO SCH (10:59)
[2023-04-12] MEDS: predniSONE 10 MG TABLET (UD) PO SCH (10:59)
[2023-04-12] MEDS: FLUTICASONE/UMECLIDIN/VILANTER(200-62.5-25 TRELEGY ELLIPTA) INAHLER IH SCH (11:01)
[2023-04-12] MEDS: APIXABAN 5 MG TABLET PO SCH ×2 (11:01→21:15)
[2023-04-12] MEDS: FLUTICASONE PROP 0.05% 16 GM NASAL SPRAY NS SCH ×2 (13:59→21:16)
[2023-04-12 20:08] LABS: ANTIGLOMERULAR BASEMENT MEN.AB <0.2 units (0.0-0.9)
[2023-04-12] MEDS: MELATONIN 5 MG TABLETS PO PRN (21:11)
[2023-04-13] MEDS: ACETAMINOPHEN 325 MG TABLET (FP) PO PRN ×3 (01:14→21:19)
[2023-04-13] MEDS: traMADol HCL 50 MG TABLET PO PRN (03:21)
[2023-04-13] MEDS: GABAPENTIN 300 MG CAPSULE PO SCH (06:58)
[2023-04-13] MEDS: hydrALAZINE HCL 50 MG TABLET (FP) PO SCH ×3 (06:58→21:20)
[2023-04-13] MEDS: FUROSEMIDE 40 MG/4 ML INJECTABLE VIAL IVPUSH SCH ×2 (06:58→14:46)
[2023-04-13] MEDS: INSULIN ASPART SLIDING SCALE (NOVOLOG) 1 VIAL SQ SCH ×4 (07:01→21:30)
[2023-04-13 07:46] LABS: HEMATOCRIT 43.1 % (35.4-49); HEMOGLOBIN 13.5 GM/dL (11.7-16.9); MCH 27.5 pg (25.7-33.7); MCHC 31.3 g/dl (32.0-35.9); MEAN CELL VOLUME 87.8 fl (80-96); MEAN PLT VOLUME 9.2 fl (7.5-11.1); PLATELET COUNT 176 10^3/uL (134-434); RBC 4.91 M/mm3 (4.00-5.60); RDW 18.8 % (11.9-15.9); WHITE BLOOD COUNT 18.7 K/mm3 (4.0-10.0)
[2023-04-13 07:57] LABS: POTASSIUM 3.3 mmol/L (3.5-5.1)
[2023-04-13 08:07] LABS: ALBUMIN 3.1 g/dl (3.4-5.0); BLOOD UREA NITROGEN 83.2 mg/dL (7-18); CALCIUM 8.1 mg/dL (8.5-10.1); MAGNESIUM 1.7 mg/dL (1.8-2.4)
[2023-04-13 08:10] LABS: CREATININE 2.5 mg/dL (0.55-1.3); PHOSPHOROUS 3.8 mg/dL (2.5-4.9)
[2023-04-13 08:11] LABS: BILIRUBIN,TOTAL 0.7 mg/dL (0.2-1)
[2023-04-13 08:12] LABS: TOT PROT 6.6 g/dl (6.4-8.2)
[2023-04-13] MEDS: TAMSULOSIN HCL 0.4 MG CAP PO SCH (08:34)
[2023-04-13] MEDS ORDERED: POTASSIUM CHLORIDE ORAL LIQUID 20 MEQ/15 ML PO ONE ×2 (09:21→15:45)
[2023-04-13] MEDS: NIFEdipine E.R 60 MG TABLET PO SCH (10:58)
[2023-04-13] MEDS: predniSONE 10 MG TABLET (UD) PO SCH (10:58)
[2023-04-13] MEDS: APIXABAN 2.5 MG TABLET PO SCH ×2 (10:58→21:20)
[2023-04-13] MEDS: FLUTICASONE/UMECLIDIN/VILANTER(200-62.5-25 TRELEGY ELLIPTA) INAHLER IH SCH (10:59)
[2023-04-13] MEDS: FLUTICASONE PROP 0.05% 16 GM NASAL SPRAY NS SCH ×2 (11:00→21:21)
[2023-04-13] MEDS: GABAPENTIN 100 MG CAPSULE PO SCH ×2 (14:45→21:18)
[2023-04-13] MEDS ORDERED: MAGNESIUM SULF 50% (8.12 MEQ/2 ML-1 GM VIAL) IVPB ONE (15:45)
[2023-04-13 20:08] LABS: ATYPICAL pANCA <1:20 titer (Neg:<1:20); C-ANCA <1:20 titer (Neg:<1:20)
[2023-04-13] MEDS: ALBUTEROL SO4 2.5/IPRATROPIUM 0.5 INH SOL 3 ML VIAL.NEB. NEB PRN (21:30)
[2023-04-13] MEDS ORDERED: INSULIN (NOVOLOG) ASPART 100 UNITS/ML 10ML VIAL ONE (21:39)
[2023-04-14] MEDS: MELATONIN 5 MG TABLETS PO PRN ×2 (00:10→22:21)
[2023-04-14] MEDS: GABAPENTIN 100 MG CAPSULE PO SCH ×4 (06:51→22:25)
[2023-04-14] MEDS: hydrALAZINE HCL 50 MG TABLET (FP) PO SCH ×3 (06:51→22:21)
[2023-04-14] MEDS: FUROSEMIDE 40 MG/4 ML INJECTABLE VIAL IVPUSH SCH (06:53)
[2023-04-14] MEDS: INSULIN ASPART SLIDING SCALE (NOVOLOG) 1 VIAL SQ SCH ×4 (07:01→22:30)
[2023-04-14 07:07] LABS: HEMOGLOBIN 13.7 GM/dL (11.7-16.9); MCH 27.8 pg (25.7-33.7); MCHC 31.8 g/dl (32.0-35.9); MEAN CELL VOLUME 87.5 fl (80-96); MEAN PLT VOLUME 9.7 fl (7.5-11.1); PLATELET COUNT 169 10^3/uL (134-434); RBC 4.91 M/mm3 (4.00-5.60); RDW 18.8 % (11.9-15.9); WHITE BLOOD COUNT 18.9 K/mm3 (4.0-10.0)
[2023-04-14 07:32] LABS: POTASSIUM 3.9 mmol/L (3.5-5.1)
[2023-04-14 07:34] LABS: CALCIUM 8.3 mg/dL (8.5-10.1)
[2023-04-14 07:35] LABS: BLOOD UREA NITROGEN 93.3 mg/dL (7-18)
[2023-04-14 07:38] LABS: CREATININE 2.7 mg/dL (0.55-1.3); PHOSPHOROUS 3.4 mg/dL (2.5-4.9)
[2023-04-14 07:39] LABS: BILIRUBIN,TOTAL 0.7 mg/dL (0.2-1); TOT PROT 6.5 g/dl (6.4-8.2)
[2023-04-14 07:52] LABS: MAGNESIUM 1.8 mg/dL (1.8-2.4)
[2023-04-14] MEDS: ACETAMINOPHEN 325 MG TABLET (FP) PO PRN ×2 (10:34→19:23)
[2023-04-14] MEDS: TAMSULOSIN HCL 0.4 MG CAP PO SCH (10:34)
[2023-04-14] MEDS: NIFEdipine E.R 60 MG TABLET PO SCH (10:36)
[2023-04-14] MEDS: APIXABAN 2.5 MG TABLET PO SCH ×2 (10:36→22:22)
[2023-04-14] MEDS: predniSONE 10 MG TABLET (UD) PO SCH (10:36)
[2023-04-14] MEDS: FLUTICASONE PROP 0.05% 16 GM NASAL SPRAY NS SCH ×2 (10:37→22:29)
[2023-04-14] MEDS: FLUTICASONE/UMECLIDIN/VILANTER(200-62.5-25 TRELEGY ELLIPTA) INAHLER IH SCH (10:38)
[2023-04-14] MEDS: FUROSEMIDE 40 MG TABLET (FP) PO SCH (14:57)
[2023-04-14] MEDS: LORATADINE 10 MG TABLET PO SCH (14:57)
[2023-04-14] MEDS ORDERED: INSULIN (NOVOLOG) ASPART 100 UNITS/ML 10ML VIAL ONE (22:24)
[2023-04-15] MEDS ORDERED: MAG HYDROX/AL HYDROX/SIMETH 30 ML UNIT-DOSE CUP PO PRN (01:24)
[2023-04-15] MEDS ORDERED: FUROSEMIDE 40 MG/4 ML INJECTABLE VIAL IVPUSH ONE (02:23)
[2023-04-15 06:14] LABS: ARTERIAL BLD GAS O2 SATURATION 34.3 % (95-98); ARTERIAL BLOOD GAS BASE EXCESS -0.7 mmol/L (-2-2); ARTERIAL BLOOD GAS pH 7.341 (7.350-7.450)
[2023-04-15 06:26] LABS: ALLENS TEST POSITIVE
[2023-04-15 06:27] LABS: VENT RATE 16
[2023-04-15 06:43] LABS: ARTERIAL BLOOD GAS PO2 22.1 mmHg (80-100)
[2023-04-15] MEDS: GABAPENTIN 100 MG CAPSULE PO SCH ×4 (06:54→22:45)
[2023-04-15] MEDS: hydrALAZINE HCL 50 MG TABLET (FP) PO SCH ×3 (06:54→22:45)
[2023-04-15] MEDS: ACETAMINOPHEN 325 MG TABLET (FP) PO PRN (06:54)
[2023-04-15] MEDS: FUROSEMIDE 40 MG TABLET (FP) PO SCH (06:54)
[2023-04-15] MEDS: INSULIN ASPART SLIDING SCALE (NOVOLOG) 1 VIAL SQ SCH ×4 (06:58→22:51)
[2023-04-15 07:14] LABS: HEMOGLOBIN 13.6 GM/dL (11.7-16.9); MCH 27.6 pg (25.7-33.7); MCHC 31.8 g/dl (32.0-35.9); MEAN PLT VOLUME 9.6 fl (7.5-11.1); PLATELET COUNT 211 10^3/uL (134-434); RBC 4.94 M/mm3 (4.00-5.60); RDW 18.9 % (11.9-15.9); WHITE BLOOD COUNT 18.6 K/mm3 (4.0-10.0)
[2023-04-15 07:30] LABS: CHLORIDE 104 mmol/L (98-107); POTASSIUM 4.2 mmol/L (3.5-5.1); SODIUM 136 mmol/L (136-145)
[2023-04-15 07:42] LABS: GLUCOSE,RANDOM 139 mg/dL (74-106)
[2023-04-15 07:43] LABS: ALBUMIN 3.3 g/dl (3.4-5.0); ANION GAP 10 mmol/L (4-13); CALCIUM 8.8 mg/dL (8.5-10.1); CO2 22 mmol/L (21-32); MAGNESIUM 2.2 mg/dL (1.8-2.4); SGOT/AST 34 U/L (15-37)
[2023-04-15 07:46] LABS: CREATININE 2.8 mg/dL (0.55-1.3); SGPT/ALT 80 U/L (13-61)
[2023-04-15 07:47] LABS: BILIRUBIN,TOTAL 0.8 mg/dL (0.2-1)
[2023-04-15 07:48] LABS: ALK PHOS 195 U/L (45-117); TOT PROT 6.8 g/dl (6.4-8.2)
[2023-04-15 07:49] LABS: BLOOD UREA NITROGEN 105.3 mg/dL (7-18)
[2023-04-15] MEDS: TAMSULOSIN HCL 0.4 MG CAP PO SCH (08:14)
[2023-04-15] MEDS: NIFEdipine E.R 60 MG TABLET PO SCH (10:02)
[2023-04-15] MEDS: FLUTICASONE PROP 0.05% 16 GM NASAL SPRAY NS SCH ×2 (10:02→22:52)
[2023-04-15] MEDS: APIXABAN 2.5 MG TABLET PO SCH ×2 (10:02→22:45)
[2023-04-15] MEDS: LORATADINE 10 MG TABLET PO SCH (10:02)
[2023-04-15] MEDS: FLUTICASONE/UMECLIDIN/VILANTER(200-62.5-25 TRELEGY ELLIPTA) INAHLER IH SCH (10:03)
[2023-04-15] MEDS ORDERED: INSULIN (NOVOLOG) ASPART 100 UNITS/ML 10ML VIAL ONE ×2 (12:24→17:39)
[2023-04-15] MEDS ORDERED: ACETAMINOPHEN 325 MG TABLET (FP) PO ONE (21:52)
[2023-04-16] MEDS ORDERED: traMADol HCL 50 MG TABLET PO ONE (02:52)
[2023-04-16] MEDS: MELATONIN 5 MG TABLETS PO PRN ×2 (03:42→21:52)
[2023-04-16] MEDS: GABAPENTIN 100 MG CAPSULE PO SCH ×4 (06:50→22:02)
[2023-04-16] MEDS: hydrALAZINE HCL 50 MG TABLET (FP) PO SCH ×3 (06:50→21:51)
[2023-04-16] MEDS: INSULIN ASPART SLIDING SCALE (NOVOLOG) 1 VIAL SQ SCH ×4 (06:51→21:52)
[2023-04-16] MEDS: FLUTICASONE PROP 0.05% 16 GM NASAL SPRAY NS SCH ×2 (10:12→22:24)
[2023-04-16] MEDS: LORATADINE 10 MG TABLET PO SCH (10:12)
[2023-04-16] MEDS: APIXABAN 2.5 MG TABLET PO SCH ×2 (10:12→21:51)
[2023-04-16] MEDS: TAMSULOSIN HCL 0.4 MG CAP PO SCH (10:12)
[2023-04-16] MEDS: NIFEdipine E.R 60 MG TABLET PO SCH (10:12)
[2023-04-16] MEDS ORDERED: ACETAMINOPHEN 325 MG TABLET (FP) PO PRN (11:00)
[2023-04-16] MEDS ORDERED: oxyCODONE HCL 5 MG TABLET PO PRN (11:00)
[2023-04-16] MEDS: oxyCODONE HCL 5 MG TABLET PO PRN ×2 (11:30→21:53)
[2023-04-16] MEDS: ACETAMINOPHEN 325 MG TABLET (FP) PO PRN ×2 (11:31→22:01)
[2023-04-16] MEDS: FLUTICASONE/UMECLIDIN/VILANTER(200-62.5-25 TRELEGY ELLIPTA) INAHLER IH SCH (11:32)
[2023-04-16] MEDS ORDERED: HYDROmorphone HCl 2 MG/ML VIAL SQ ONE (13:15)
[2023-04-16 13:19] LABS: HEMATOCRIT 41.5 % (35.4-49); HEMOGLOBIN 13.2 GM/dL (11.7-16.9); MCH 27.5 pg (25.7-33.7); MCHC 31.9 g/dl (32.0-35.9); MEAN CELL VOLUME 86.2 fl (80-96); MEAN PLT VOLUME 9.6 fl (7.5-11.1); PLATELET COUNT 175 10^3/uL (134-434); RBC 4.81 M/mm3 (4.00-5.60); RDW 19.3 % (11.9-15.9); WHITE BLOOD COUNT 13.9 K/mm3 (4.0-10.0)
[2023-04-16] MEDS: FUROSEMIDE 40 MG/4 ML INJECTABLE VIAL IVPUSH SCH (13:45)
[2023-04-16 13:55] LABS: BLOOD UREA NITROGEN 99.5 mg/dL (7-18); CALCIUM 8.4 mg/dL (8.5-10.1)
[2023-04-16 13:56] LABS: MAGNESIUM 2.4 mg/dL (1.8-2.4)
[2023-04-16 13:57] LABS: CREATININE 2.8 mg/dL (0.55-1.3)
[2023-04-16 13:58] LABS: PHOSPHOROUS 3.7 mg/dL (2.5-4.9)
[2023-04-16 14:00] LABS: BILIRUBIN,TOTAL 0.8 mg/dL (0.2-1); TOT PROT 6.7 g/dl (6.4-8.2)
[2023-04-16] MEDS: ALBUTEROL SO4 2.5/IPRATROPIUM 0.5 INH SOL 3 ML VIAL.NEB. NEB PRN (21:14)
[2023-04-16] MEDS ORDERED: FUROSEMIDE 40 MG/4 ML INJECTABLE VIAL IVPUSH ONE (22:00)
[2023-04-17] MEDS ORDERED: HYDROmorphone HCl 2 MG/ML VIAL SQ ONE (02:14)
[2023-04-17] MEDS: GABAPENTIN 100 MG CAPSULE PO SCH ×4 (06:24→21:09)
[2023-04-17] MEDS: INSULIN ASPART SLIDING SCALE (NOVOLOG) 1 VIAL SQ SCH ×4 (06:24→21:09)
[2023-04-17] MEDS: hydrALAZINE HCL 50 MG TABLET (FP) PO SCH ×3 (06:24→21:09)
[2023-04-17] MEDS: FUROSEMIDE 40 MG/4 ML INJECTABLE VIAL IVPUSH SCH ×2 (06:24→14:28)
[2023-04-17] MEDS: TAMSULOSIN HCL 0.4 MG CAP PO SCH (09:09)
[2023-04-17] MEDS: NIFEdipine E.R 60 MG TABLET PO SCH (10:17)
[2023-04-17] MEDS: LORATADINE 10 MG TABLET PO SCH (10:17)
[2023-04-17] MEDS: APIXABAN 2.5 MG TABLET PO SCH ×2 (10:17→21:09)
[2023-04-17] MEDS: FLUTICASONE PROP 0.05% 16 GM NASAL SPRAY NS SCH ×2 (10:17→21:24)
[2023-04-17] MEDS: FLUTICASONE/UMECLIDIN/VILANTER(200-62.5-25 TRELEGY ELLIPTA) INAHLER IH SCH (10:18)
[2023-04-17] MEDS: oxyCODONE HCL 5 MG TABLET PO PRN (11:25)
[2023-04-17] MEDS: morphine SULFATE 4 MG/ML VIAL IVPUSH PRN ×3 (12:11→21:09)
[2023-04-17 12:36] LABS: HEMATOCRIT 40.6 % (35.4-49); HEMOGLOBIN 12.9 GM/dL (11.7-16.9); MCH 27.9 pg (25.7-33.7); MCHC 31.8 g/dl (32.0-35.9); MEAN CELL VOLUME 87.9 fl (80-96); PLATELET COUNT 178 10^3/uL (134-434); RBC 4.62 M/mm3 (4.00-5.60); RDW 19.3 % (11.9-15.9); WHITE BLOOD COUNT 16.9 K/mm3 (4.0-10.0)
[2023-04-17] MEDS ORDERED: METOLAZONE 5 MG TABLET PO ONE (12:41)
[2023-04-17 12:55] LABS: CHLORIDE 101 mmol/L (98-107); POTASSIUM 4.4 mmol/L (3.5-5.1); SODIUM 128 mmol/L (136-145)
[2023-04-17 12:58] LABS: CALCIUM 8.5 mg/dL (8.5-10.1)
[2023-04-17 12:59] LABS: ALBUMIN 3.2 g/dl (3.4-5.0); ANION GAP 7 mmol/L (4-13); CO2 20 mmol/L (21-32); GLUCOSE,RANDOM 249 mg/dL (74-106); MAGNESIUM 2.4 mg/dL (1.8-2.4)
[2023-04-17 13:02] LABS: CREATININE 3.1 mg/dL (0.55-1.3); SGOT/AST 36 U/L (15-37); SGPT/ALT 82 U/L (13-61)
[2023-04-17 13:03] LABS: BILIRUBIN,TOTAL 0.7 mg/dL (0.2-1); TOT PROT 6.9 g/dl (6.4-8.2)
[2023-04-17 13:04] LABS: ALK PHOS 240 U/L (45-117)
[2023-04-17 13:08] LABS: BLOOD UREA NITROGEN 111.6 mg/dL (7-18)
[2023-04-17] MEDS ORDERED: FUROSEMIDE 100 MG/10 ML INJECTABLE VIAL IVPB ONE (13:19)
[2023-04-18] MEDS: MELATONIN 5 MG TABLETS PO PRN (00:10)
[2023-04-18] MEDS: morphine SULFATE 4 MG/ML VIAL IVPUSH PRN ×4 (03:06→21:26)
[2023-04-18] MEDS: hydrALAZINE HCL 50 MG TABLET (FP) PO SCH ×3 (05:42→21:17)
[2023-04-18] MEDS: METOLAZONE 5 MG TABLET PO SCH ×2 (05:42→13:42)
[2023-04-18] MEDS: GABAPENTIN 100 MG CAPSULE PO SCH ×4 (05:43→21:25)
[2023-04-18] MEDS: INSULIN ASPART SLIDING SCALE (NOVOLOG) 1 VIAL SQ SCH ×4 (06:01→21:43)
[2023-04-18] MEDS: FUROSEMIDE 40 MG/4 ML INJECTABLE VIAL IVPUSH SCH ×3 (06:47→21:17)
[2023-04-18 07:20] LABS: HEMATOCRIT 39.7 % (35.4-49); HEMOGLOBIN 12.7 GM/dL (11.7-16.9); MEAN CELL VOLUME 87.7 fl (80-96); MEAN PLT VOLUME 10.2 fl (7.5-11.1); PLATELET COUNT 174 10^3/uL (134-434); RBC 4.53 M/mm3 (4.00-5.60); RDW 19.6 % (11.9-15.9); WHITE BLOOD COUNT 13.9 K/mm3 (4.0-10.0)
[2023-04-18 07:25] LABS: CHLORIDE 101 mmol/L (98-107); POTASSIUM 5.2 mmol/L (3.5-5.1); SODIUM 134 mmol/L (136-145)
[2023-04-18 07:45] LABS: ALBUMIN 3.2 g/dl (3.4-5.0); ANION GAP 12 mmol/L (4-13); CALCIUM 9.2 mg/dL (8.5-10.1); CO2 21 mmol/L (21-32); GLUCOSE,RANDOM 107 mg/dL (74-106); MAGNESIUM 2.4 mg/dL (1.8-2.4)
[2023-04-18 07:49] LABS: CREATININE 3.3 mg/dL (0.55-1.3); SGOT/AST 44 U/L (15-37); SGPT/ALT 68 U/L (13-61)
[2023-04-18 07:51] LABS: BILIRUBIN,TOTAL 0.7 mg/dL (0.2-1); TOT PROT 6.9 g/dl (6.4-8.2)
[2023-04-18 07:52] LABS: ALK PHOS 224 U/L (45-117)
[2023-04-18 07:55] LABS: BLOOD UREA NITROGEN 122.8 mg/dL (7-18)
[2023-04-18] MEDS: TAMSULOSIN HCL 0.4 MG CAP PO SCH (09:08)
[2023-04-18] MEDS: LORATADINE 10 MG TABLET PO SCH (09:10)
[2023-04-18] MEDS: APIXABAN 2.5 MG TABLET PO SCH ×2 (09:10→21:17)
[2023-04-18] MEDS: FLUTICASONE PROP 0.05% 16 GM NASAL SPRAY NS SCH ×2 (09:11→21:17)
[2023-04-18] MEDS: FLUTICASONE/UMECLIDIN/VILANTER(200-62.5-25 TRELEGY ELLIPTA) INAHLER IH SCH (09:11)
[2023-04-18] MEDS: ACETAMINOPHEN 325 MG TABLET (FP) PO PRN (12:00)
[2023-04-18] MEDS: LIDOCAINE 4% PATCH TP SCH (13:39)
[2023-04-18] MEDS: LIDOCAINE PATCH REMOVAL MC SCH (23:31)
[2023-04-19] MEDS: morphine SULFATE 4 MG/ML VIAL IVPUSH PRN ×4 (01:37→22:18)
[2023-04-19] MEDS: METOLAZONE 5 MG TABLET PO SCH ×2 (05:50→16:05)
[2023-04-19] MEDS: GABAPENTIN 100 MG CAPSULE PO SCH ×4 (05:50→22:21)
[2023-04-19] MEDS: hydrALAZINE HCL 50 MG TABLET (FP) PO SCH ×3 (05:50→22:19)
[2023-04-19] MEDS: FUROSEMIDE 40 MG/4 ML INJECTABLE VIAL IVPUSH SCH ×3 (06:34→22:20)
[2023-04-19] MEDS: INSULIN ASPART SLIDING SCALE (NOVOLOG) 1 VIAL SQ SCH ×4 (06:35→22:23)
[2023-04-19 07:17] LABS: CHLORIDE 99 mmol/L (98-107); POTASSIUM 3.6 mmol/L (3.5-5.1); SODIUM 135 mmol/L (136-145)
[2023-04-19 07:20] LABS: ALBUMIN 3.4 g/dl (3.4-5.0); ANION GAP 13 mmol/L (4-13); CALCIUM 9.3 mg/dL (8.5-10.1); CO2 23 mmol/L (21-32); GLUCOSE,RANDOM 103 mg/dL (74-106)
[2023-04-19 07:23] LABS: CREATININE 3.2 mg/dL (0.55-1.3); SGOT/AST 46 U/L (15-37); SGPT/ALT 81 U/L (13-61)
[2023-04-19 07:24] LABS: BILIRUBIN,TOTAL 0.8 mg/dL (0.2-1); TOT PROT 7.2 g/dl (6.4-8.2)
[2023-04-19 08:08] LABS: ALK PHOS 275 U/L (45-117); BLOOD UREA NITROGEN 126.3 mg/dL (7-18)
[2023-04-19 08:43] LABS: HEMATOCRIT 41.3 % (35.4-49); HEMOGLOBIN 13.3 GM/dL (11.7-16.9); MCH 28.1 pg (25.7-33.7); MCHC 32.1 g/dl (32.0-35.9); MEAN CELL VOLUME 87.5 fl (80-96); MEAN PLT VOLUME 10.1 fl (7.5-11.1); PLATELET COUNT 186 10^3/uL (134-434); RBC 4.72 M/mm3 (4.00-5.60); RDW 19.4 % (11.9-15.9); WHITE BLOOD COUNT 18.9 K/mm3 (4.0-10.0)
[2023-04-19] MEDS: APIXABAN 2.5 MG TABLET PO SCH ×2 (10:58→22:20)
[2023-04-19] MEDS: TAMSULOSIN HCL 0.4 MG CAP PO SCH (10:58)
[2023-04-19] MEDS: LIDOCAINE 4% PATCH TP SCH (10:58)
[2023-04-19] MEDS: LORATADINE 10 MG TABLET PO SCH (10:58)
[2023-04-19] MEDS: FLUTICASONE/UMECLIDIN/VILANTER(200-62.5-25 TRELEGY ELLIPTA) INAHLER IH SCH (11:01)
[2023-04-19] MEDS: FLUTICASONE PROP 0.05% 16 GM NASAL SPRAY NS SCH ×2 (11:01→22:20)
[2023-04-19] MEDS ORDERED: POTASSIUM CHLORIDE ORAL LIQUID 20 MEQ/15 ML PO ONE (14:21)
[2023-04-19] MEDS: LIDOCAINE PATCH REMOVAL MC SCH (22:20)
[2023-04-20] MEDS: morphine SULFATE 4 MG/ML VIAL IVPUSH PRN ×2 (02:22→11:17)
[2023-04-20] MEDS: MELATONIN 5 MG TABLETS PO PRN (02:23)
[2023-04-20] MEDS: METOLAZONE 5 MG TABLET PO SCH ×2 (06:30→13:38)
[2023-04-20] MEDS: hydrALAZINE HCL 50 MG TABLET (FP) PO SCH ×3 (06:53→22:47)
[2023-04-20] MEDS: GABAPENTIN 100 MG CAPSULE PO SCH ×4 (06:55→22:46)
[2023-04-20] MEDS: FUROSEMIDE 40 MG/4 ML INJECTABLE VIAL IVPUSH SCH ×3 (06:55→22:47)
[2023-04-20] MEDS: LIDOCAINE 4% PATCH TP SCH (09:49)
[2023-04-20] MEDS: LORATADINE 10 MG TABLET PO SCH (09:50)
[2023-04-20] MEDS: APIXABAN 2.5 MG TABLET PO SCH ×2 (09:50→22:47)
[2023-04-20] MEDS: TAMSULOSIN HCL 0.4 MG CAP PO SCH (09:50)
[2023-04-20] MEDS: FLUTICASONE PROP 0.05% 16 GM NASAL SPRAY NS SCH ×2 (09:53→22:50)
[2023-04-20] MEDS: FLUTICASONE/UMECLIDIN/VILANTER(200-62.5-25 TRELEGY ELLIPTA) INAHLER IH SCH (09:54)
[2023-04-20] MEDS: INSULIN ASPART SLIDING SCALE (NOVOLOG) 1 VIAL SQ SCH ×2 (12:04→17:09)
[2023-04-20] MEDS ORDERED: morphine SULFATE 4 MG/ML VIAL IVPUSH PRN (13:53)
[2023-04-20] MEDS: ACETAMINOPHEN 325 MG TABLET (FP) PO PRN (18:33)
[2023-04-20] MEDS ORDERED: ACETAMINOPHEN 500 MG TABLET (FP) PO PRN (19:31)
[2023-04-20] MEDS: LIDOCAINE PATCH REMOVAL MC SCH (22:48)
[2023-04-21] MEDS: INSULIN ASPART SLIDING SCALE (NOVOLOG) 1 VIAL SQ SCH ×5 (06:44→22:05)
[2023-04-21] MEDS: hydrALAZINE HCL 50 MG TABLET (FP) PO SCH ×3 (09:11→21:53)
[2023-04-21] MEDS: GABAPENTIN 100 MG CAPSULE PO SCH ×4 (09:11→21:56)
[2023-04-21] MEDS: METOLAZONE 5 MG TABLET PO SCH ×2 (09:12→15:21)
[2023-04-21] MEDS: TAMSULOSIN HCL 0.4 MG CAP PO SCH (09:13)
[2023-04-21] MEDS ORDERED: morphine SULFATE 4 MG/ML VIAL IVPUSH PRN ×2 (10:15→15:42)
[2023-04-21] MEDS: FUROSEMIDE 40 MG/4 ML INJECTABLE VIAL IVPUSH SCH ×3 (10:23→21:53)
[2023-04-21] MEDS: LORATADINE 10 MG TABLET PO SCH (10:50)
[2023-04-21] MEDS: APIXABAN 2.5 MG TABLET PO SCH ×2 (10:50→21:54)
[2023-04-21] MEDS: LIDOCAINE 4% PATCH TP SCH (10:50)
[2023-04-21] MEDS: FLUTICASONE PROP 0.05% 16 GM NASAL SPRAY NS SCH ×2 (10:51→22:07)
[2023-04-21] MEDS: FLUTICASONE/UMECLIDIN/VILANTER(200-62.5-25 TRELEGY ELLIPTA) INAHLER IH SCH (10:53)
[2023-04-21] MEDS ORDERED: INSULIN (LEVEMIR) 100 UNITS/ML UNITS SQ ONE (12:19)
[2023-04-21] MEDS: ALBUTEROL SO4 2.5/IPRATROPIUM 0.5 INH SOL 3 ML VIAL.NEB. NEB SCH ×2 (16:35→20:14)
[2023-04-21] MEDS ORDERED: INSULIN (NOVOLOG) ASPART 100 UNITS/ML 10ML VIAL ONE ×2 (18:37→22:03)
[2023-04-21] MEDS: MELATONIN 5 MG TABLETS PO PRN (21:56)
[2023-04-21] MEDS: LIDOCAINE PATCH REMOVAL MC SCH (22:24)
[2023-04-22] MEDS: METOLAZONE 5 MG TABLET PO SCH ×2 (05:28→14:38)
[2023-04-22] MEDS: GABAPENTIN 100 MG CAPSULE PO SCH ×2 (05:28→14:17)
[2023-04-22] MEDS: hydrALAZINE HCL 50 MG TABLET (FP) PO SCH ×2 (05:28→14:18)
[2023-04-22] MEDS: FUROSEMIDE 40 MG/4 ML INJECTABLE VIAL IVPUSH SCH ×2 (06:02→14:18)
[2023-04-22] MEDS ORDERED: INSULIN (NOVOLOG) ASPART 100 UNITS/ML 10ML VIAL ONE (06:06)
[2023-04-22] MEDS: INSULIN ASPART SLIDING SCALE (NOVOLOG) 1 VIAL SQ SCH ×4 (06:09→20:20)
[2023-04-22] MEDS: ALBUTEROL SO4 2.5/IPRATROPIUM 0.5 INH SOL 3 ML VIAL.NEB. NEB SCH ×4 (08:01→19:48)
[2023-04-22 08:29] LABS: HEMATOCRIT 37.3 % (35.4-49); HEMOGLOBIN 12.3 GM/dL (11.7-16.9); MCH 28.6 pg (25.7-33.7); MCHC 32.9 g/dl (32.0-35.9); MEAN CELL VOLUME 86.7 fl (80-96); MEAN PLT VOLUME 9.7 fl (7.5-11.1); PLATELET COUNT 160 10^3/uL (134-434); RDW 18.4 % (11.9-15.9); WHITE BLOOD COUNT 16.1 K/mm3 (4.0-10.0)
[2023-04-22 08:46] LABS: CHLORIDE 90 mmol/L (98-107); SODIUM 135 mmol/L (136-145)
[2023-04-22 08:58] LABS: CALCIUM 8.4 mg/dL (8.5-10.1)
[2023-04-22 08:59] LABS: CO2 31 mmol/L (21-32); GLUCOSE,RANDOM 156 mg/dL (74-106)
[2023-04-22 09:01] LABS: SGPT/ALT 51 U/L (13-61)
[2023-04-22 09:02] LABS: PHOSPHOROUS 3.9 mg/dL (2.5-4.9); SGOT/AST 41 U/L (15-37)
[2023-04-22 09:03] LABS: BILIRUBIN,TOTAL 0.8 mg/dL (0.2-1); TOT PROT 6.4 g/dl (6.4-8.2)
[2023-04-22 09:05] LABS: ALBUMIN 2.7 g/dl (3.4-5.0); ALK PHOS 228 U/L (45-117); ANION GAP 13 mmol/L (4-13); BLOOD UREA NITROGEN 125.7 mg/dL (7-18); POTASSIUM 2.5 mmol/L (3.5-5.1)
[2023-04-22] MEDS ORDERED: POLYETHYLENE GLYCOL (HEALTHYLAX) 3350 17 GM PACKET PO SCH (10:00)
[2023-04-22] MEDS: APIXABAN 2.5 MG TABLET PO SCH (10:14)
[2023-04-22] MEDS: LORATADINE 10 MG TABLET PO SCH (10:14)
[2023-04-22] MEDS: TAMSULOSIN HCL 0.4 MG CAP PO SCH (10:14)
[2023-04-22] MEDS ORDERED: SCOPOLAMINE HYDROBROMIDE 1 PATCH PATCH.TD72 TD SCH (10:15)
[2023-04-22] MEDS: LIDOCAINE 4% PATCH TP SCH (10:15)
[2023-04-22] MEDS: KCL 10 MEQ IVPB 10 MEQ/100 ML INFUS.BAG IVPB SCH ×5 (10:16→18:09)
[2023-04-22] MEDS: FLUTICASONE PROP 0.05% 16 GM NASAL SPRAY NS SCH (10:25)
[2023-04-22] MEDS: POTASSIUM CHLORIDE ORAL LIQUID 20 MEQ/15 ML PO ONE ×2 (10:25→10:29)
[2023-04-22] MEDS: FLUTICASONE/UMECLIDIN/VILANTER(200-62.5-25 TRELEGY ELLIPTA) INAHLER IH SCH (10:25)
[2023-04-22 12:28] VITALS: RESP 20
[2023-04-22] MEDS ORDERED: morphine SULFATE 4 MG/ML VIAL IVPUSH PRN (14:43)
[2023-04-22] MEDS ORDERED: morphine SULFATE 4 MG/ML VIAL IV ONE (14:54)
[2023-04-22] MEDS ORDERED: MORPHINE SULFATE/0.9% NACL/PF 100 MG/100 ML BAG IVPB SCH ×3 (15:00)
[2023-04-22] MEDS ORDERED: MORPHINE 100 MG/100 ML MG IVPB SCH (15:18)
[2023-04-22 17:20] VITALS: BP 172/95; PULSE 71; TEMP 97.5
[2023-04-22] MEDS ORDERED: LORazepam 2 MG/ML SDV VIAL IVPUSH ONE (17:41)
[2023-04-22] MEDS: MORPHINE 100 MG/100 ML MG IVPB SCH (17:55)
[2023-04-23] MEDS: ALBUTEROL SO4 2.5/IPRATROPIUM 0.5 INH SOL 3 ML VIAL.NEB. NEB SCH ×4 (07:55→19:53)
[2023-04-23] MEDS: LORazepam 2 MG/ML SDV VIAL IVPUSH PRN ×6 (09:02→21:34)
[2023-04-23] MEDS ORDERED: ACETAMINOPHEN 500 MG TABLET (FP) PO PRN (10:14)
[2023-04-23] MEDS ORDERED: SODIUM CHLORIDE NASAL SPRAY 44 ML BOTTLE NS PRN (10:14)
[2023-04-23] MEDS: MORPHINE 100 MG/100 ML MG IVPB SCH (19:35)
[2023-04-25] MEDS ORDERED: SCOPOLAMINE HYDROBROMIDE 1 PATCH PATCH.TD72 TD SCH (10:15)
== END 2023-04-24 06:16 | disposition expired | DRG 291 ==
LOC: JER 03:49 → JERBED 08:24 → J4W 04-08 15:36 → J7W 04-22 13:50
PROVIDERS: ADMIT Internal Medicine; ATTEND Nurse Practitioner Family
DX: I13.0 Hypertensive heart and chronic kidney disease with heart failure and stage 1 through stage 4 chronic kidney disease, or unspecified chronic kidney disease (principal); I50.33 Acute on chronic diastolic (congestive) heart failure; J96.01 Acute respiratory failure with hypoxia; N17.9 Acute kidney failure, unspecified; J84.9 Interstitial pulmonary disease, unspecified; Z68.42 Body mass index [BMI] 45.0-49.9, adult; E87.1 Hypo-osmolality and hyponatremia; N18.9 Chronic kidney disease, unspecified; E11.22 Type 2 diabetes mellitus with diabetic chronic kidney disease; E66.01 Morbid (severe) obesity due to excess calories; E78.00 Pure hypercholesterolemia, unspecified; N40.0 Benign prostatic hyperplasia without lower urinary tract symptoms; I07.1 Rheumatic tricuspid insufficiency; G47.00 Insomnia, unspecified; I27.20 Pulmonary hypertension, unspecified; E87.6 Hypokalemia; N28.1 Cyst of kidney, acquired; G47.33 Obstructive sleep apnea (adult) (pediatric); I45.10 Unspecified right bundle-branch block; D72.829 Elevated white blood cell count, unspecified; Z86.718 Personal history of other venous thrombosis and embolism; Z86.711 Personal history of pulmonary embolism; Z99.81 Dependence on supplemental oxygen; Z51.5 Encounter for palliative care
CPT/HCPCS: 0241U-QW; 36415; 36600; 71045-TC-FY; 71250-TC; 74176-TC; 76775-TC; 80048; 80053; 81003; 82570; 82803; 82962; 83036; 83516; 83520; 83605; 83690; 83735; 83880; 84100; 84155; 84156; 84165; 84300; 84484; 85025; 85027; 85610; 85730; 86038; 86225; 86256; 87086; 93005; 93010; 93306-TC; 93880-TC; 94010; 94640; 94660; 94761; 97116-GP; 97162-GP; 99285-25; J1644